=== PATIENT | female | born 1945 | race Caucasian/White ===

== ENCOUNTER 2020-10-02 13:56 | Inpatient (IN) | payer MEDICARE, BC ==
[~2020-10-02] VITALS: Ht 167.6 cm; Wt 56.2 kg
[~2020-10-02 13:56] MED LIST: CALCAVITD PO; CARB200 PO; CARBATROL PO; FURO40 PO; MAGCHL64ER; MULVITMIND PO; PHAZYME250 MG PO; POTCHL10ER PO; SODBIC650 PO
[2020-10-02 15:06] LABS: BASOPHILS ABSOLUTE AUTO 0.01 K/mm3 (0.00-0.23); BASOPHILS PERCENT AUTO 0 % (0-2); EOSINOPHILS PERCENT AUTO 0 % (0-6); Hematocrit 38.1 % (33.0-51.0); Hemoglobin 11.4 g/dL (11.5-16.0); IMMATURE GRAN ABSOLUTE AUTO 0.06 K/mm3 (0.00-0.10); IMMATURE GRAN PERCENT AUTO 1 % (0-1); LYMPHOCYTES ABSOLUTE AUTO 0.48 K/mm3 (0.84-5.20); LYMPHOCYTES PERCENT AUTO 6 % (21-46); MONOCYTES ABSOLUTE AUTO 0.59 K/mm3 (0.16-1.47); MONOCYTES PERCENT AUTO 8 % (4-13); Mean Corpuscular HGB 24.8 pg (26.0-34.0); Mean Corpuscular HGB Conc 29.9 g/dL (31.5-36.5); Mean Corpuscular Volume 83 fL (80-100); Mean Platelet Volume 9.6 fL (9.1-12.4); NEUTROPHILS ABSOLUTE AUTO 6.65 K/mm3 (1.96-9.15); NEUTROPHILS PERCENT AUTO 85 % (41-73); Platelet Count 310 K/mm3 (150-400); RDW Coefficient Variation 16.3 % (11.7-14.2); RDW Standard Deviation 47.3 fL (35.1-46.3); White Blood Cell Count 7.79 K/mm3 (4.00-11.30)
[2020-10-02 15:41] LABS: Albumin, Blood 2.7 g/dL (3.4-5.0); Albumin/Globulin Ratio 0.9 (0.8-1.8); Bilirubin, Total 0.3 mg/dL (0.1-1.0); Bun/Creatinine Ratio 14.2 (12.0-20.0); Calcium, Blood 5.6 mg/dL (8.5-10.1); Creatinine, Blood 3.39 mg/dL (0.40-1.00); Globulin, Blood 3.1 g/dL (2.2-4.0); Phosphorus, Blood 3.2 mg/dL (2.5-4.9); Total Protein, Blood 5.8 g/dL (6.4-8.2)
[2020-10-02 16:59] LABS: Source, Urine Clean Catch
[2020-10-02 17:08] LABS: Bilirubin, Urine Neg (Neg); Blood, Urine Neg (Neg); Glucose Qualitative, Urine 2+ (Neg); Ketones, Urine Neg (Neg); Leukocyte Esterase, Urine 1+ (Neg); Nitrite, Urine Neg (Neg); Protein, Urine 2+ (Neg); Urobilinogen, Urine NORM (Normal)
[2020-10-02 17:18] LABS: Appearance, Urine Clear (Clear); Color, Urine Yellow (P-Yellow)
[2020-10-02 17:19] LABS: Amorphous Light (0-Heavy); Bacteria Mod /hpf; Red Blood Cells, Urine 0-2 /hpf (0-2); Squamous Epithelial Cells Mod /hpf (Few)
[2020-10-02 17:20] LABS: Renal Epithelial Rare /hpf (0-Rare); Transitional Epithelial Cells Rare /hpf (0-Rare)
[2020-10-02] MEDS ORDERED: ALLO100 PO (18:09)
[2020-10-02] MEDS ORDERED: CARB200 PO (18:13)
[2020-10-02] MEDS ORDERED: EVEROLIMUS PO (21:49)
--- NOTE | 2020-10-03 03:46 | NUR ---
SUMMARY PT ARRIVED TO FLOOR IN NO DISTRESS. PT HAS BEEN NPO SINCE 0000 DUE TO POSSIBLE PROCEDURE IN AM. PT INFORMED TO HAVE BRING MED LIST AND TRANSPLANT MEDS TO [facility]. MED REC IS CURRENTLY INCOMPLETE. PT CURRENTLY SLEEPING IN NO DISTRESS. CALL LIGHT IN REACH.
[2020-10-03 05:25] LABS: Hematocrit 34.9 % (33.0-51.0); Hemoglobin 10.3 g/dL (11.5-16.0)
[2020-10-03 05:58] LABS: Magnesium, Blood 2.1 mg/dL (1.6-2.4)
[2020-10-03 06:11] LABS: Albumin, Blood 2.4 g/dL (3.4-5.0); Anion Gap 7 mmol/L (6-16); Blood Urea Nitrogen 48 mg/dL (8-24); Bun/Creatinine Ratio 13.8 (12.0-20.0); CO2, Blood 25 mmol/L (21-32); Calcium, Blood 5.9 mg/dL (8.5-10.1); Chloride, Blood 115 mmol/L (98-108); Creatinine, Blood 3.47 mg/dL (0.40-1.00); Glomerular Filtration Rate 14 (60-); Glucose, Blood 79 mg/dL (70-99); Phosphorus, Blood 3.3 mg/dL (2.5-4.9); Potassium, Blood 3.6 mmol/L (3.5-5.5); Sodium, Blood 147 mmol/L (136-145)
--- NOTE | 2020-10-03 09:13 | NUR ---
10/03/20 0913 Donte Pinto NO ANTIBIOTICS SCHEDULED. 2ND BAG OF 2000 MG CALCIUM GLUCONATE STARTED AT 0855 ON PUMP INFUSING INTO RIGHT HAND 22 G IV
[2020-10-03] MEDS ORDERED: VITAMIN D32000 UNI1 PO (12:11)
[2020-10-03] MEDS ORDERED: CALCITRATE200 M1 PO (12:11)
[2020-10-03] MEDS ORDERED: FURO40 PO (12:12)
[2020-10-03] MEDS ORDERED: CARBATROL (12:14)
[2020-10-03] MEDS ORDERED: PRED5 PO (12:15)
[2020-10-03] MEDS ORDERED: Diflucan100 MG PO (12:15)
[2020-10-03] MEDS ORDERED: ASPI81CH PO (12:16)
[2020-10-03] MEDS ORDERED: FAMO20 PO (12:16)
[2020-10-03] MEDS ORDERED: ZORTRESS0.5 MG PO (12:17)
[2020-10-03] MEDS ORDERED: POTCHL20ER PO (12:19)
[2020-10-03] MEDS ORDERED: Vitamin B Comple1 EA PO (12:19)
[2020-10-03] MEDS ORDERED: ROPI.25 PO (12:20)
--- NOTE | 2020-10-03 12:29 | NUR ---
PATIENT RECIEVED HD PERMACATH THIS MORNING. VSS. NO COMPLAINTS. SPOKE WITH CARLO WHO STATES AT THIS TIME HE IS NOT SURE IF PT WILL REICEVE HD TODAY. THIS RN REQUESTED RECHECK OF CA LEVELS, NO NEW ORDERS RECIEVED. STATES, AM RECHECK IS OK. THIS RN NOTIFIED OF UPDATED MED LIST. PT MAY RESUME PREDNISONE AND EVEROLIMUS, PREVIOUSLY TAKEN, PER CARLO.
--- NOTE | 2020-10-04 04:31 | NUR ---
VICE PRESIDENT EDUCATION SUMMARY PT A&OX4, ABLE TO MAKE NEEDS KNOWN. PLEASANT AND COOPERATIVE TO CARE. NO C/O PAIN OR ANY DISCOMFORT THIS SHIFT. CALM AND RESTED T/O SHIFT. DRESSING TO PERMACATH ON R UPPER CHEST AREA CDI. VSS. BED AT LOWEST POSITION. CALL LIGHT WITHIN REACH.
[2020-10-04 05:56] LABS: Hematocrit 34.3 % (33.0-51.0); Hemoglobin 10.2 g/dL (11.5-16.0)
[2020-10-04 06:18] LABS: Albumin, Blood 2.3 g/dL (3.4-5.0); Anion Gap 5 mmol/L (6-16); Blood Urea Nitrogen 31 mg/dL (8-24); Bun/Creatinine Ratio 11.7 (12.0-20.0); CO2, Blood 31 mmol/L (21-32); Calcium, Blood 7.7 mg/dL (8.5-10.1); Chloride, Blood 107 mmol/L (98-108); Creatinine, Blood 2.65 mg/dL (0.40-1.00); Glomerular Filtration Rate 19 (60-); Glucose, Blood 118 mg/dL (70-99); Phosphorus, Blood 2.9 mg/dL (2.5-4.9); Potassium, Blood 3.8 mmol/L (3.5-5.5); Sodium, Blood 143 mmol/L (136-145)
[2020-10-04 06:53] LABS: BASOPHILS ABSOLUTE AUTO 0.01 K/mm3 (0.00-0.23); BASOPHILS PERCENT AUTO 0 % (0-2); EOSINOPHILS ABSOLUTE AUTO 0.01 K/mm3 (0.00-0.68); EOSINOPHILS PERCENT AUTO 0 % (0-6); Hematocrit 34.1 % (33.0-51.0); IMMATURE GRAN ABSOLUTE AUTO 0.05 K/mm3 (0.00-0.10); IMMATURE GRAN PERCENT AUTO 1 % (0-1); LYMPHOCYTES PERCENT AUTO 13 % (21-46); MONOCYTES ABSOLUTE AUTO 1.06 K/mm3 (0.16-1.47); MONOCYTES PERCENT AUTO 13 % (4-13); Mean Corpuscular HGB 24.6 pg (26.0-34.0); Mean Corpuscular HGB Conc 29.3 g/dL (31.5-36.5); Mean Corpuscular Volume 84 fL (80-100); Mean Platelet Volume 9.8 fL (9.1-12.4); NEUTROPHILS ABSOLUTE AUTO 5.89 K/mm3 (1.96-9.15); NEUTROPHILS PERCENT AUTO 74 % (41-73); Platelet Count 258 K/mm3 (150-400); RDW Coefficient Variation 16.8 % (11.7-14.2); RDW Standard Deviation 49.9 fL (35.1-46.3); Red Blood Cell Count 4.06 M/mm3 (3.80-5.20); White Blood Cell Count 8.02 K/mm3 (4.00-11.30)
[2020-10-04 07:05] LABS: Bun/Creatinine Ratio 12.4 (12.0-20.0); Calcium, Blood 7.8 mg/dL (8.5-10.1); Creatinine, Blood 2.59 mg/dL (0.40-1.00); Potassium, Blood 3.8 mmol/L (3.5-5.5)
--- NOTE | 2020-10-05 03:54 | NUR ---
GEOPHYSICAL MANAGER SUMMARY PT A&OX4, ABLE TO MAKE NEEDS KNOWN. PLEASANT AND COOPERATIVE TO CARE. INDEPENDENT IN ROOM. NO C/O PAIN OR ANY DISCOMFORT THIS SHIFT. NO C/O CP, SOB, OR N/V. PT CALM AND RESTED IN BED T/O SHIFT. PERMACATH DRESSING TO R UPPER CHEST AREA CDI. PT SCHEDULED TO HAVE DIALYSIS TODAY. BED AT LOWEST POSITION. CALL LIGHT WITHIN REACH. POSSIBLE D/C TO HOME TODAY.
[2020-10-05 06:00] LABS: Hematocrit 35.4 % (33.0-51.0); Hemoglobin 10.3 g/dL (11.5-16.0)
[2020-10-05 06:29] LABS: Albumin, Blood 2.2 g/dL (3.4-5.0); Anion Gap 6 mmol/L (6-16); Blood Urea Nitrogen 33 mg/dL (8-24); Bun/Creatinine Ratio 11.5 (12.0-20.0); CO2, Blood 28 mmol/L (21-32); Calcium, Blood 8.8 mg/dL (8.5-10.1); Chloride, Blood 109 mmol/L (98-108); Creatinine, Blood 2.87 mg/dL (0.40-1.00); Glomerular Filtration Rate 17 (60-); Glucose, Blood 108 mg/dL (70-99); Magnesium, Blood 2.1 mg/dL (1.6-2.4); Potassium, Blood 3.9 mmol/L (3.5-5.5); Sodium, Blood 143 mmol/L (136-145)
[2020-10-05 08:10] LABS: HBSAG SCREEN Negative (Negative)
--- NOTE | 2020-10-05 11:08 | NUR ---
AM ASSESSMENT I AGREE WITH SN NGO'S AND WAS PRESENT DURING HER AM ASSESSMENT
[2020-10-05] MEDS ORDERED: BUME2 PO (11:28)
[2020-10-05 17:09] LABS: Influenza A, PCR Negative (NEGATIVE); Influenza B, PCR Negative (NEGATIVE); Resp Syncytial Virus, PCR Negative (NEGATIVE); SARS-Cov-2 (COVID-19) PCR, MMC Negative (NEGATIVE)
--- NOTE | 2020-10-05 17:19 | NUR ---
SHIFT SUMMARRY A&OX4, INDEPENDENT IN ROOM. PLEASANT & COOPERATIVE WITH CARE, ABLE TO MAKE NEEDS KNOWN. DENIES SOB, N/V, PAIN. PERMACATH DRESSING TO RIGHT UPPER CHEST AREA C/D/I. COVID TEST PERFORMED, RESULTS NEGATIVE. DISCHARGE WITHHELD DUE TO COMPLICATIONS WITH [facility]. PT IS TO RECIEVE DIALYSIS TOMORROW, WITH POSSIBLE DISCHARGE AFTERWARDS. NO OTHER CHANGES OR CONCERNS.
--- NOTE | 2020-10-06 04:20 | NUR ---
FINANCE INSURANCE MANAGER SUMMARY PT A&OX4, ABLE TO MAKE NEEDS KNOWN, PLEASANT AND COOPERATIVE TO CARE. NO C/O PAIN OR ANY DISCOMFORT THIS SHIFT. NO C/O CP, SOB, OR N/V. PT IS INDEPENDENT IN ROOM. DRESSING TO PERMACATH ON R UPPER CHEST AREA IS C/D/I. PT CALM AND RESTED IN BED T/O SHIFT. CALL LIGHT WITHIN REACH. SCHEDULED FOR DIALYSIS TODAY. POSSIBLE DISCHARGE TO HOME.
[2020-10-06 05:32] LABS: Hematocrit 36.4 % (33.0-51.0); Hemoglobin 10.7 g/dL (11.5-16.0)
[2020-10-06 05:54] LABS: Albumin, Blood 2.3 g/dL (3.4-5.0); Anion Gap 5 mmol/L (6-16); Blood Urea Nitrogen 41 mg/dL (8-24); Bun/Creatinine Ratio 12.1 (12.0-20.0); CO2, Blood 29 mmol/L (21-32); Calcium, Blood 9.7 mg/dL (8.5-10.1); Chloride, Blood 109 mmol/L (98-108); Creatinine, Blood 3.38 mg/dL (0.40-1.00); Glomerular Filtration Rate 14 (60-); Glucose, Blood 90 mg/dL (70-99); Magnesium, Blood 2.1 mg/dL (1.6-2.4); Phosphorus, Blood 3.3 mg/dL (2.5-4.9); Potassium, Blood 4.2 mmol/L (3.5-5.5); Sodium, Blood 143 mmol/L (136-145)
[2020-10-06 07:10] LABS: HBSAG SCREEN Negative (Negative); HEP A AB, IGM Negative (Negative); HEP B CORE AB, IGM Negative (Negative); HEP C VIRUS AB <0.1 (0.0-0.9)
--- NOTE | 2020-10-06 09:41 | NUR ---
PT TAKEN TO DIALYSIS A/OX3 APPEARED TO BE BREATHING EASILY, PT TRANSFERED VIA WHEELCHAIR
--- NOTE | 2020-10-06 13:29 | NUR ---
Pt. is sitting in a chair resting and the spouce in the room on visit ,pt. reports doing well prayed for the pt.
--- NOTE | 2020-10-06 17:36 | NUR ---
PT IS A/OX3, PLEASANT AND COOPERATIVE, THE PT IS UP IND IN HER ROOM, THE PT APPEARS TO BE BREATHING EASILY ON RA, THE PT DENIES ANY PAIN, THE PT HAD DIALYSIS TODAY AND TOLERATED IT WELL, THE PT WAS EXPECTING TO BE DISCHARGED TODAY, APPARENTLY PER THE COAL PASSER WE ARE STILL WAITING FOR CONFORMATION FROM [facility] IN ORDER FOR THE PATIENT TO BE DISCHARGED AND ASSURED A SPOT FOR DIALSIS TO BE DONE, THE PT AND HER ARE COOPERATIVE HOWEVER UNHAPPY WITH THE DELAYED DISCHARGE, CALL LIGHT IN REACH, WILL CONTINUE TO MONITOR FOR CHANGES
[2020-10-07 04:49] LABS: Hematocrit 33.6 % (33.0-51.0); Hemoglobin 9.8 g/dL (11.5-16.0)
[2020-10-07 05:11] LABS: Albumin, Blood 2.1 g/dL (3.4-5.0); Anion Gap 6 mmol/L (6-16); Blood Urea Nitrogen 40 mg/dL (8-24); Bun/Creatinine Ratio 13.3 (12.0-20.0); CO2, Blood 29 mmol/L (21-32); Calcium, Blood 9.6 mg/dL (8.5-10.1); Chloride, Blood 107 mmol/L (98-108); Creatinine, Blood 3.01 mg/dL (0.40-1.00); Glomerular Filtration Rate 16 (60-); Glucose, Blood 89 mg/dL (70-99); Phosphorus, Blood 3.3 mg/dL (2.5-4.9); Potassium, Blood 4.1 mmol/L (3.5-5.5); Sodium, Blood 142 mmol/L (136-145)
--- NOTE | 2020-10-07 07:16 | NUR ---
SHIFT SUMMARY PT IS A 75 Y/O FEMALE, ADMITTED FOR HYPOCALCEMIA WHICH HAS SINCE BEEN RESOLVED. PT IS A NEW DIALYSIS PT, WITH A PERMACATH PLACED IN THE R CHEST WALL. NO C/O PAIN, NAUSEA OR SOB. VITAL SIGNS STABLE. NO ACUTE CHANGES IN PT CONDITION NOTED DURING THE NIGHT. REPORT GIVEN TO ONCOMING RN.
--- NOTE | 2020-10-07 11:23 | NUR ---
PT DISCHARGED TO HOME. PG REMOVED, NO SS OF INFECTION NOTED. PT DRESSED SELF. SKIN TEAR WAS REDRESSED PRIOR TO DC. NURSE EDUCATED PT ON NEW MEDS AND DISCHARGE INSTRUCTIONS. PT ENCOURAGED TO FOLLOW UP WITH PCP. PT WC DOWN TO CAR AND TAKEN HOME BY .
--- NOTE | 2020-10-07 12:24 | NUR ---
Pt. is doing much better and is discharged for good wished pt. all the best at home.
== END 2020-10-07 11:25 | disposition home or self-care (01) | DRG 674 ==
LOC: ER 13:56 → MEDS 13:57 → ER 10-03 08:00 → MEDS 10-04 12:46 → ENPENDDIS 10-05 09:51 → MEDS 10-07 11:25
PROVIDERS: Internal Medicine; Internal Medicine Nephrology; Physician Assistant; Surgery; ADMIT Hospitalist
PROC: 0JH63XZ Insertion of Tunneled Vascular Access Device into Chest Subcutaneous Tissue and Fascia, Percutaneous Approach (ICD-10-PCS; 2020-10-03)
PROC: 02HV33Z Insertion of Infusion Device into Superior Vena Cava, Percutaneous Approach (ICD-10-PCS; 2020-10-03)
PROC: 5A1D70Z Performance of Urinary Filtration, Intermittent, Less than 6 Hours Per Day (ICD-10-PCS; principal; 2020-10-03 08:00)
PROC: 5A1D70Z Performance of Urinary Filtration, Intermittent, Less than 6 Hours Per Day (ICD-10-PCS; 2020-10-06)
DX: N17.9 Acute kidney failure, unspecified (principal); Z94.0 Kidney transplant status; E83.51 Hypocalcemia; N18.6 End stage renal disease; N25.81 Secondary hyperparathyroidism of renal origin; D63.1 Anemia in chronic kidney disease; R73.9 Hyperglycemia, unspecified; E88.09 Other disorders of plasma-protein metabolism, not elsewhere classified; Z98.84 Bariatric surgery status; Z20.828 Contact with and (suspected) exposure to other viral communicable diseases; Z99.2 Dependence on renal dialysis
CPT/HCPCS: 0241U; 36415; 71045; 77001; 80048; 80053; 80069; 80074; 81001; 83036; 83735; 84100; 85014; 85018; 85025; 86317; 87340; 93005; 93010; 96365; 99284-25; A9270; A9270-GY; C1750; C1751; J0610; J1100; J1644; J2370; J2405; J2704; J3010; J7512; U0004

== ENCOUNTER → 2020-12-11 | Outpatient (CLI) | payer MEDICARE, BC ==
[~2020-12-11] MED LIST changes: +ALLO100 PO; +ASPIR 8181 M1 PO; +B-12500 MC2 PO; +BUME2 PO; +CALCITRATE200 M1 PO; +CALCITRIOL0.5 MC1 PO; +Diflucan100 MG PO; +EVEROLIMUS0.25 MG PO; +FAMO20 PO; +K-Dur20 MEQ PO; +LOPE2C PO; -MAGCHL64ER; +MAGCHL64ER PO; +PANT40 PO; +POTA10T PO; +POTCHL20ER PO; +PRED5 PO; +ROPI.25 PO; +VITAMIN D32000 UNI1 PO; +Vitamin B Comple1 EA PO; +XARELTO15 MG PO; +ZORTRESS0.5 MG PO
== END | disposition home or self-care (01) ==
LOC: LAB 11:30 → LAB DAV 11:30
DX: R19.7 Diarrhea, unspecified (principal)
CPT/HCPCS: 87493

== ENCOUNTER 2020-12-19 08:01 | Inpatient (IN) | payer MEDICARE, BC ==
[~2020-12-19] VITALS: Ht 167.6 cm; Wt 59.2 kg
[~2020-12-19 08:01] MED LIST changes: -ASPIR 8181 M1 PO; -B-12500 MC2 PO; -CALCITRATE200 M1 PO; -CALCITRIOL0.5 MC1 PO; -Diflucan100 MG PO; -EVEROLIMUS0.25 MG PO; -FAMO20 PO; -K-Dur20 MEQ PO; -LOPE2C PO; -MAGCHL64ER PO; -PANT40 PO; -POTA10T PO; -POTCHL20ER PO; -PRED5 PO; -ROPI.25 PO; -SODBIC650 PO; -VITAMIN D32000 UNI1 PO; -Vitamin B Comple1 EA PO; -XARELTO15 MG PO
[2020-12-19 08:55] LABS: Chloride (POC) 100 mmol/L (98-108); Creatinine (POC) 2.1 mg/dL (0.6-1.0); Glucose (ISTAT POC) 80 mg/dL (70-99); Hemoglobin (POC) 11.2 g/dL (12.0-16.0); Potassium (POC) 2.7 mmol/L (3.5-5.5); Sodium (POC) 138 mmol/L (135-148); Total CO2 (POC) 26 mmol/L (21-32)
[2020-12-19 09:36] LABS: BASOPHILS ABSOLUTE AUTO 0.04 K/mm3 (0.00-0.23); BASOPHILS PERCENT AUTO 1 % (0-2); EOSINOPHILS ABSOLUTE AUTO 0.04 K/mm3 (0.00-0.68); EOSINOPHILS PERCENT AUTO 1 % (0-6); Hematocrit 32.6 % (33.0-51.0); Hemoglobin 9.8 g/dL (11.5-16.0); IMMATURE GRAN ABSOLUTE AUTO 0.05 K/mm3 (0.00-0.10); IMMATURE GRAN PERCENT AUTO 1 % (0-1); LYMPHOCYTES ABSOLUTE AUTO 0.25 K/mm3 (0.84-5.20); LYMPHOCYTES PERCENT AUTO 4 % (21-46); MONOCYTES ABSOLUTE AUTO 0.63 K/mm3 (0.16-1.47); MONOCYTES PERCENT AUTO 11 % (4-13); Mean Corpuscular HGB 26.4 pg (26.0-34.0); Mean Corpuscular HGB Conc 30.1 g/dL (31.5-36.5); Mean Corpuscular Volume 88 fL (80-100); Mean Platelet Volume 9.4 fL (9.1-12.4); NEUTROPHILS ABSOLUTE AUTO 4.77 K/mm3 (1.96-9.15); NEUTROPHILS PERCENT AUTO 83 % (41-73); Platelet Count 274 K/mm3 (150-400); RDW Standard Deviation 55.1 fL (35.1-46.3); Red Blood Cell Count 3.71 M/mm3 (3.80-5.20); White Blood Cell Count 5.78 K/mm3 (4.00-11.30)
[2020-12-19 10:01] LABS: Alanine Aminotransfer (ALT/SGP 17 U/L (12-78); Albumin, Blood 2.3 g/dL (3.4-5.0); Albumin/Globulin Ratio 0.9 (0.8-1.8); Alk Phos 63 U/L (50-136); Anion Gap 8 mmol/L (6-16); Aspartate Aminotrans (AST/SGOT 24 U/L (12-37); Bilirubin, Total 0.5 mg/dL (0.1-1.0); Blood Urea Nitrogen 29 mg/dL (8-24); Bun/Creatinine Ratio 15.9 (12.0-20.0); CO2, Blood 25 mmol/L (21-32); Calcium, Blood 6.5 mg/dL (8.5-10.1); Chloride, Blood 108 mmol/L (98-108); Creatinine, Blood 1.82 mg/dL (0.40-1.00); Globulin, Blood 2.6 g/dL (2.2-4.0); Glomerular Filtration Rate 29 (60-); Glucose, Blood 79 mg/dL (70-99); Potassium, Blood 2.9 mmol/L (3.5-5.5); Sodium, Blood 141 mmol/L (136-145); Total Protein, Blood 4.9 g/dL (6.4-8.2); Troponin I <0.015 ng/mL (0.000-0.040)
[2020-12-19] MEDS ORDERED: CALCITRIOL0.5 MC1 PO (12:50)
[2020-12-19] MEDS ORDERED: CARBATROL PO (12:50)
[2020-12-19] MEDS ORDERED: MAGCHL64ER PO (13:07)
[2020-12-19] MEDS ORDERED: ASPIR 8181 M1 PO (13:10)
[2020-12-19] MEDS ORDERED: SODBIC650 PO (13:10)
[2020-12-19] MEDS ORDERED: VITAMIN D32000 UNI1 PO (13:11)
[2020-12-19] MEDS ORDERED: PRED5 PO (13:11)
[2020-12-19] MEDS ORDERED: Vitamin B Comple1 EA PO (13:11)
[2020-12-19] MEDS ORDERED: Diflucan100 MG PO (13:12)
[2020-12-19] MEDS ORDERED: PANT40 PO (13:13)
[2020-12-19] MEDS ORDERED: POTCHL20ER PO (13:13)
[2020-12-19] MEDS ORDERED: BUME2 PO (13:14)
[2020-12-19] MEDS ORDERED: K-Dur20 MEQ PO (13:15)
[2020-12-19] MEDS ORDERED: B-12500 MC2 PO (13:16)
[2020-12-19] MEDS ORDERED: FAMO20 PO (13:33)
[2020-12-19] MEDS ORDERED: CALCITRATE200 M1 PO (13:33)
[2020-12-19] MEDS ORDERED: ROPI.25 PO (13:34)
[2020-12-19] MEDS ORDERED: EVEROLIMUS0.25 MG PO (13:35)
--- NOTE | 2020-12-19 15:27 | NUR ---
pt arrived to pcu 16 via gurney from ED. report obtained, pt is able to stand and transfer to the bed, she came in from dialysis after feeling faint and her heart racing, she was in afib rvr and converted to sr after amiodorone was infused, she is a/ox3, pleasant and cooperative with care, follows commands well denies pain at this time, lungs are clear t/o, resp even and unlabored, no cough noted, hrr, tele in place running sr per monitor, see strip, trace edema noted to b/l le, but pt has oswaldo hose in place, ppp+1, cap refill <3sec, vs stable, afebrile, iv sites are clear and patent, btx4, hyperactive, pt reports diarrhea x2 months, voids without diff, skin frail but intact, tracey baron, call light in reach.
[2020-12-19 17:31] LABS: Bun/Creatinine Ratio 14.6 (12.0-20.0); Creatinine, Blood 2.06 mg/dL (0.40-1.00); Potassium, Blood 3.5 mmol/L (3.5-5.5)
--- NOTE | 2020-12-19 18:32 | NUR ---
Dr. Romo in to see pt, new orders recieved, placing new iv as one to left thumb is very sore, this will be removed, and new one placed. no further changes this shift. call light in reach.
[2020-12-20 04:02] LABS: BASOPHILS ABSOLUTE AUTO 0.06 K/mm3 (0.00-0.23); BASOPHILS PERCENT AUTO 1 % (0-2); EOSINOPHILS PERCENT AUTO 2 % (0-6); Hematocrit 30.4 % (33.0-51.0); Hemoglobin 9.3 g/dL (11.5-16.0); IMMATURE GRAN ABSOLUTE AUTO 0.03 K/mm3 (0.00-0.10); IMMATURE GRAN PERCENT AUTO 1 % (0-1); LYMPHOCYTES ABSOLUTE AUTO 1.51 K/mm3 (0.84-5.20); LYMPHOCYTES PERCENT AUTO 27 % (21-46); MONOCYTES ABSOLUTE AUTO 0.83 K/mm3 (0.16-1.47); MONOCYTES PERCENT AUTO 15 % (4-13); Mean Corpuscular HGB Conc 30.6 g/dL (31.5-36.5); Mean Corpuscular Volume 88 fL (80-100); Mean Platelet Volume 9.3 fL (9.1-12.4); NEUTROPHILS ABSOLUTE AUTO 3.12 K/mm3 (1.96-9.15); NEUTROPHILS PERCENT AUTO 55 % (41-73); Platelet Count 340 K/mm3 (150-400); RDW Standard Deviation 54.9 fL (35.1-46.3); Red Blood Cell Count 3.45 M/mm3 (3.80-5.20); White Blood Cell Count 5.65 K/mm3 (4.00-11.30)
[2020-12-20 04:22] LABS: Albumin, Blood 2.1 g/dL (3.4-5.0); Albumin/Globulin Ratio 0.8 (0.8-1.8); Bilirubin, Total 0.4 mg/dL (0.1-1.0); Bun/Creatinine Ratio 13.4 (12.0-20.0); Calcium, Blood 6.1 mg/dL (8.5-10.1); Creatinine, Blood 2.39 mg/dL (0.40-1.00); Globulin, Blood 2.6 g/dL (2.2-4.0); Total Protein, Blood 4.7 g/dL (6.4-8.2)
--- NOTE | 2020-12-20 05:50 | NUR ---
SHIFT SUMMARY PT A&OX4. PLEASANT AND COOPERATIVE. SP02>92% ON RA. TELEMETRY READS SR, HR 80'S-90'S. PT UP TO BATHROOM WITH MINIMAL ASSISTANCE TO VOID THIS SHIFT. PT DENIES PAIN. PT TALKED ON PHONE FOR ABOUT AN HOUR AT BEGINNING OF SHIFT, WATCHED TV, THEN SLEPT THE SECOND HALF OF SHIFT. CALL LIGHTIN REACH. WILL GIVE REPORT TO ONCOMING SHIFT.
[2020-12-20 09:03] LABS: Magnesium, Blood 1.8 mg/dL (1.6-2.4); Phosphorus, Blood 3.6 mg/dL (2.5-4.9); Thyroid Stimulating Hormone 1.14 uIU/mL (0.360-4.800)
[2020-12-20] MEDS ORDERED: LOPE2C PO (15:07)
[2020-12-20] MEDS ORDERED: XARELTO15 MG PO (15:08)
--- NOTE | 2020-12-20 15:45 | NUR ---
PT WENT TO RESTROOM BUT DID NOT HAVE BM OR STRAINING AND NOTED RECTAL BLEEDING, BRICE RED BLOOD. CALL TO DR RUGGIERO WHO INSTRUCTED FOR PT TO STOP XARELTO AND TO FOLLOW UP WITH DR MATOS. SHE ALSO SPOKE WITH DR MATOS WHOW AWARE FOR FOLLOW UP
--- NOTE | 2020-12-20 16:17 | NUR ---
PT GOT UP TO RESTROOM AND CALLED RNS TO ROOM DUE TO HEAVY BLEEDING WITH BM. LARGE AMOUNT OF BLOOD AND CLOTS NOTED IN TOILET BOWL. PT ALSO STATED SHE WAS DIZZY WITH ACTIVITY AND STANDING. RN CHECKED VITAL SIGNS AND NOTED PT HAD PSOITIVE ORTHOS. DR RUGGIERO ORDERS TO STOP XARELTO AND STOP DC AND GET GI CONSULT AND STAT H AND H
[2020-12-20 16:45] LABS: Hematocrit 28.1 % (33.0-51.0); Hemoglobin 8.6 g/dL (11.5-16.0)
--- NOTE | 2020-12-20 19:24 | NUR ---
SHIFT SUMMARY: PT IS ALERT AND ORIENTED X4. ON ROOM AIR SATING ABOVE 92%. TELE SHOWING SINUS RHYTH, WITH HR IN 80'S. DENIES CHEST PAIN/PRESSURE. DIALYSIS PORT DRESSING CLEAN DRY AND INTACT, DENIES PAIN. SKIN FRAGILE WITH SKIN TEAR NOTED ON LEFT FOREARM, GAUZE AND COBAN. MODERATE EDEMA NOTED IN BILATERAL ANKLES/LOWER EXTREMITIES. PT STATES THAT IS "NORMAL FOR HER". SEE PREVIOUS TWO NOTES ABOUT RECTAL BLEEDING AND HYPOTENSION WHEN STANDING. DR. KHANNA IN TO SEE PATIENT WITH PLANS FOR UPPER AND LOWER COLONOSCOPY. BOWEL PREP DISCUSSED WITH DR. KHANNA AND PATIENT. INTO SEE PATIENT THIS AFTERNOON AND EVENING, ABLE TO BRING IN HOME MEDS, VERIFIED BY PHARMACY AND PLACED IN PATIENT LOCKED DRAWER. PT DENIES PAIN/DIZZINESS. EATING WELL AND VITAL SIGNS STABLE. CALLING APPROPRIATLY. BED REMAINED IN LOW LOCKED POSITION. PT EDUCATED ABOUT CALLING TO USE BATHROOM FROM PREVIOUS RECTAL BLEEDING AND HYPOTENSION.
[2020-12-21 00:40] LABS: Hematocrit 27.1 % (33.0-51.0); Hemoglobin 8.2 g/dL (11.5-16.0)
--- NOTE | 2020-12-21 02:00 | NUR ---
PT UPDATE PT C/O OF GOLYTLY DRINK, STATES IT MAKES HER NAUSEATED AND SHE FEELS IT IS GOING TO "COME BACK UP." GAVE PT APPLE JUICE, ETC TO DRINK AFTER TAKING A DRINK TO HELP WITH TASTE. MEDICATED W/ ZOFRAN PER EMAR. PT DRANK APPROX 1/3 OF JUG. PT STATES SHE IS DONE, IT IS MAKING HER NAUSEATED. PT STATES "I KNOW MY BODY AND I KNOW ITS GOING TO COME BACK UP." PT STATES SHE WANTS TO RESCHEDULE HER SCOPE SO SHE CAN PREP WITH MIROLAX. PT STATES SHE HAS PREPPED W/ MIROLAX FOR A PRIOR PROCEDURE WITH NO ISSUES.
[2020-12-21 02:51] LABS: Influenza A, PCR Negative (NEGATIVE); Influenza B, PCR Negative (NEGATIVE); Resp Syncytial Virus, PCR Negative (NEGATIVE); SARS-Cov-2 (COVID-19) PCR, MMC Negative (NEGATIVE)
[2020-12-21 04:45] LABS: Hematocrit 26.6 % (33.0-51.0); Hemoglobin 8.1 g/dL (11.5-16.0)
[2020-12-21 05:07] LABS: Anion Gap 9 mmol/L (6-16); Blood Urea Nitrogen 40 mg/dL (8-24); CO2, Blood 24 mmol/L (21-32); Calcium, Blood 6.2 mg/dL (8.5-10.1); Chloride, Blood 111 mmol/L (98-108); Glomerular Filtration Rate 20 (60-); Glucose, Blood 93 mg/dL (70-99); Magnesium, Blood 1.9 mg/dL (1.6-2.4); Phosphorus, Blood 2.6 mg/dL (2.5-4.9); Potassium, Blood 3.9 mmol/L (3.5-5.5); Sodium, Blood 144 mmol/L (136-145)
--- NOTE | 2020-12-21 05:58 | NUR ---
SHIFT SUMMARY PT A&0X4. SPO2>92% ON RA. TELEMETRY READS SR, HR 80'S-90'S. PT DENIED PAIN. PT STARTED BOWEL PREP FOR SCOPE IN AM WITHOUT SUCCESS, SEE PREVIOUS NOTE. PT UP TO BATHROOM MULTIPLE TIMES, PRODUCING MAROON LIQUID STOOL. IV INFILTRATED THIS SHIFT, NEW IV PLACED IN R HAND. PT SLEPT T/O SECOND HALF OF SHIFT. CALL LIGHT IN REACH. WILL GIVE REPORT TO ONCOMING NURSE.
--- NOTE | 2020-12-21 06:45 | NUR ---
PT UPDATE DR MATOS IN ROOM TO SEE PT. MD MATOS WITH ORDERS FOR STAT IONIZED CALCIUM LAB AND TO BE NOTIFIED WHEN RESULTS ARE IN. DR JOHNSON NOW IN SEEING PT.
--- NOTE | 2020-12-21 11:58 | NUR ---
UPDATE PT TAKEN TO DAY SURGERY FOR PROCEDURE. WILL AWAIT RETURN.
--- NOTE | 2020-12-21 13:07 | NUR ---
12/21/20 1307 Beatriz Torres MONITOR INTACT WITH CONTINUOUS PULSE OXIMETRY AND INTERMITTENT BP.
--- NOTE | 2020-12-21 14:06 | NUR ---
UPDATE PT RETURNED FROM PROCEDURE. VS STABLE. PT DENIES ANY PAIN, NAUSEA, OR VOMITTING. PT TO HAVE DIALYSIS IN THE ROOM.
[2020-12-21 17:36] LABS: Hematocrit 27.6 % (33.0-51.0); Hemoglobin 8.8 g/dL (11.5-16.0)
--- NOTE | 2020-12-21 18:47 | NUR ---
DISCHARGE DISCHARGE INSTRUCTIONS PROVIDED TO PT. PT EDUCATED ON NEW MEDICATIONS AND MEDICATION CHANGES. ALL QUESTIONS ANSWERED. PT TAKEN OUT BY JASON.
[2020-12-22 20:08] LABS: T-TRANSGLUTAMINASE (TTG) IGA <2 U/mL (0-3); T-TRANSGLUTAMINASE (TTG) IGG <2 U/mL (0-5)
== END 2020-12-21 18:44 | disposition home or self-care (01) | DRG 308 ==
LOC: ER 08:01 → PCU 10:06
PROVIDERS: Internal Medicine; Internal Medicine Gastroenterology; Internal Medicine Nephrology; Physician Assistant; ADMIT Internal Medicine
PROC: 5A2204Z Restoration of Cardiac Rhythm, Single (ICD-10-PCS; principal; 2020-12-19)
PROC: 0DBB8ZX Excision of Ileum, Via Natural or Artificial Opening Endoscopic, Diagnostic (ICD-10-PCS; 2020-12-21)
PROC: 0DB68ZX Excision of Stomach, Via Natural or Artificial Opening Endoscopic, Diagnostic (ICD-10-PCS; 2020-12-21 12:30)
DX: I48.91 Unspecified atrial fibrillation (principal); N18.6 End stage renal disease; N25.81 Secondary hyperparathyroidism of renal origin; I82.401 Acute embolism and thrombosis of unspecified deep veins of right lower extremity; T86.19 Other complication of kidney transplant; K92.2 Gastrointestinal hemorrhage, unspecified; K63.3 Ulcer of intestine; E87.8 Other disorders of electrolyte and fluid balance, not elsewhere classified; Z79.82 Long term (current) use of aspirin; Z99.2 Dependence on renal dialysis; Z86.718 Personal history of other venous thrombosis and embolism; G25.81 Restless legs syndrome; Z98.0 Intestinal bypass and anastomosis status; E87.6 Hypokalemia; R19.7 Diarrhea, unspecified; E83.42 Hypomagnesemia; E83.51 Hypocalcemia; E83.39 Other disorders of phosphorus metabolism; G50.9 Disorder of trigeminal nerve, unspecified; M10.9 Gout, unspecified; T45.515A Adverse effect of anticoagulants, initial encounter; Y92.230 Patient room in hospital as the place of occurrence of the external cause; Z90.49 Acquired absence of other specified parts of digestive tract; I95.89 Other hypotension
CPT/HCPCS: 0241U; 36415; 71045; 80047; 80048; 80053; 80069; 82306; 82330; 83516; 83735; 83970; 84100; 84443; 84484; 85014; 85018; 85025; 88305; 88342; 92960; 93005; 93010; 93306; 96361-59; 96365-59; 96366-59; 96367-59; 99152; 99285-25; A9270; J0282; J0610; J0881; J2405; J2704; J3475; J3480; J7030; J7060; J7512

== ENCOUNTER 2020-12-28 15:59 | Emergency (ER) | payer MEDICARE, BC ==
[~2020-12-28] VITALS: Ht 167.6 cm; Wt 60.8 kg
[~2020-12-28 15:59] MED LIST changes: +ASPIR 8181 M1 PO; +B-12500 MC2 PO; +CALCITRATE200 M1 PO; +CALCITRIOL0.5 MC1 PO; +Diflucan100 MG PO; +EVEROLIMUS0.25 MG PO; +FAMO20 PO; +K-Dur20 MEQ PO; +LOPE2C PO; +MAGCHL64ER PO; +PANT40 PO; +POTCHL20ER PO; +PRED5 PO; +ROPI.25 PO; +SODBIC650 PO; +VITAMIN D32000 UNI1 PO; +Vitamin B Comple1 EA PO; +XARELTO15 MG PO
[2020-12-28 18:51] LABS: BASOPHILS ABSOLUTE AUTO 0.04 K/mm3 (0.00-0.23); BASOPHILS PERCENT AUTO 1 % (0-2); EOSINOPHILS PERCENT AUTO 0 % (0-6); Hematocrit 27.7 % (33.0-51.0); Hemoglobin 8.7 g/dL (11.5-16.0); IMMATURE GRAN ABSOLUTE AUTO 0.05 K/mm3 (0.00-0.10); IMMATURE GRAN PERCENT AUTO 1 % (0-1); LYMPHOCYTES ABSOLUTE AUTO 0.78 K/mm3 (0.84-5.20); LYMPHOCYTES PERCENT AUTO 10 % (21-46); MONOCYTES ABSOLUTE AUTO 0.88 K/mm3 (0.16-1.47); MONOCYTES PERCENT AUTO 12 % (4-13); Mean Corpuscular HGB Conc 31.4 g/dL (31.5-36.5); Mean Corpuscular Volume 89 fL (80-100); Mean Platelet Volume 9.3 fL (9.1-12.4); NEUTROPHILS ABSOLUTE AUTO 5.86 K/mm3 (1.96-9.15); NEUTROPHILS PERCENT AUTO 77 % (41-73); Platelet Count 351 K/mm3 (150-400); RDW Coefficient Variation 15.5 % (11.7-14.2); RDW Standard Deviation 49.5 fL (35.1-46.3); Red Blood Cell Count 3.11 M/mm3 (3.80-5.20); White Blood Cell Count 7.61 K/mm3 (4.00-11.30)
[2020-12-28 19:05] LABS: Albumin, Blood 2.4 g/dL (3.4-5.0); Albumin/Globulin Ratio 0.9 (0.8-1.8); Bilirubin, Total 0.4 mg/dL (0.1-1.0); Bun/Creatinine Ratio 12.9 (12.0-20.0); Calcium, Blood 6.9 mg/dL (8.5-10.1); Creatinine, Blood 2.25 mg/dL (0.40-1.00); Globulin, Blood 2.8 g/dL (2.2-4.0); Total Protein, Blood 5.2 g/dL (6.4-8.2)
== END 2020-12-28 19:45 | disposition home or self-care (01) ==
LOC: ER 15:59
PROVIDERS: Physician Assistant
DX: R55 Syncope and collapse (principal); E83.51 Hypocalcemia; E87.6 Hypokalemia; Z79.899 Other long term (current) drug therapy; Z99.2 Dependence on renal dialysis
CPT/HCPCS: 36415; 80053; 83735; 84100; 85025; 93005; 93010; 99284-25

== ENCOUNTER 2021-01-07 08:43 | Day surgery (SDC) | payer MEDICARE, BC ==
[~2021-01-07] VITALS: Ht 167.6 cm; Wt 58.6 kg
[2021-01-07] MEDS ORDERED: POTA10T PO (09:16)
--- NOTE | 2021-01-07 13:53 | NUR ---
PT BROUGHT BACK TO RECOVERY ROOM VIA GURNEY, APPEARS TO BE DROWSY, RESPONDS TO VERBAL STIMULI. PERITONEAL DIALYSIS CATHETER PLACEMENT SUCCESSFUL. PLACEMENT IN ABD MID/LEFT SIDE. TRANSPARENT DRESSINGS OVER NEW CATHETER PLACEMENT, NO ACTIVE BLEEDING OR OOZING NOTED. PT DENIES PAIN. VSS. CALL LIGHT IN REACH.
--- NOTE | 2021-01-07 14:39 | NUR ---
PT PROVIDED WITH MEAL TRAY, TOLERATES PO FOOD/FLUIDS WITH NO DIFFICULTIES. HOB AT 90 DEGREES, PT TOLERATES ABD DISCOMFORT, STATES IT IS "KIND OF SORE". WILL CONTINUE TO MONITOR. CALL LIGHT IN REACH.
--- NOTE | 2021-01-07 15:08 | NUR ---
PT VERBALIZED UNDERSTANDING OF D/C INSTRUCTIONS. PAPERWORK PROVIDED IN FOLDER. PT CALLS FOR RIDE HOME. ATE 100 % OF MEAL. NO DISTRESS NOTED. DRESSING FOR PD CATHETER REMAINS INTACT.
--- NOTE | 2021-01-07 16:10 | NUR ---
IV REMOVED FROM LFA WITH CATHETER INTACT, PRESSURE DRESSING APPLIED. PT GETS DRESSED WITH NO NEEDED ASSISTANCE. DISPO PAPERWORK SIGNED. PT TRANSFERS SELF INTO W/C, TAKEN OUT TO PRIVATE VEHICLE. ENCOURAGED TO FOLLOW UP WITH DIALYSIS FOR PERITONEAL DIALYSIS CARE. PT VERBALIZED UNDERSTANDING. NO ACUTE DISTRESS NOTED AT TIME OF DISCHARGE.
== END 2021-01-07 23:51 | disposition home or self-care (01) ==
LOC: MHTC 08:43
DX: N18.6 End stage renal disease (principal); Z94.0 Kidney transplant status; Z98.84 Bariatric surgery status; Z79.82 Long term (current) use of aspirin
CPT/HCPCS: 49418; 76937; 99152; 99153; C1750; C1769; C1887; C1894; J1644; J2250; J3010; J7030; J7040; Q9967

== ENCOUNTER 2021-03-07 11:08 | Emergency (ER) | payer MEDICARE, BC ==
[~2021-03-07] VITALS: Ht 165.1 cm; Wt 53.5 kg
[~2021-03-07 11:08] MED LIST changes: +POTA10T PO
[2021-03-07 11:57] LABS: BASOPHILS ABSOLUTE AUTO 0.05 K/mm3 (0.00-0.23); BASOPHILS PERCENT AUTO 1 % (0-2); EOSINOPHILS ABSOLUTE AUTO 0.07 K/mm3 (0.00-0.68); EOSINOPHILS PERCENT AUTO 1 % (0-6); Hematocrit 37.8 % (33.0-51.0); Hemoglobin 11.8 g/dL (11.5-16.0); IMMATURE GRAN ABSOLUTE AUTO 0.38 K/mm3 (0.00-0.10); IMMATURE GRAN PERCENT AUTO 4 % (0-1); LYMPHOCYTES ABSOLUTE AUTO 1.39 K/mm3 (0.84-5.20); LYMPHOCYTES PERCENT AUTO 13 % (21-46); MONOCYTES ABSOLUTE AUTO 1.06 K/mm3 (0.16-1.47); MONOCYTES PERCENT AUTO 10 % (4-13); Mean Corpuscular HGB 29.4 pg (26.0-34.0); Mean Corpuscular HGB Conc 31.2 g/dL (31.5-36.5); Mean Corpuscular Volume 94 fL (80-100); Mean Platelet Volume 9.7 fL (9.1-12.4); NEUTROPHILS ABSOLUTE AUTO 7.43 K/mm3 (1.96-9.15); NEUTROPHILS PERCENT AUTO 72 % (41-73); NRBC ABSOLUTE 0.07 K/mm3 (0.00-0.02); NRBC Auto 0.7 /100 WBC (0.0-0.2); Platelet Count 189 K/mm3 (150-400); RDW Coefficient Variation 18.9 % (11.7-14.2); RDW Standard Deviation 62.4 fL (35.1-46.3); Red Blood Cell Count 4.01 M/mm3 (3.80-5.20); White Blood Cell Count 10.38 K/mm3 (4.00-11.30)
[2021-03-07 12:07] LABS: Alanine Aminotransfer (ALT/SGP 24 U/L (12-78); Albumin, Blood 2.6 g/dL (3.4-5.0); Alk Phos 60 U/L (50-136); Anion Gap 8 mmol/L (6-16); Aspartate Aminotrans (AST/SGOT 27 U/L (12-37); Bilirubin, Total 0.5 mg/dL (0.1-1.0); Blood Urea Nitrogen 54 mg/dL (8-24); Bun/Creatinine Ratio 22.1 (12.0-20.0); CO2, Blood 24 mmol/L (21-32); Calcium, Blood 6.8 mg/dL (8.5-10.1); Chloride, Blood 112 mmol/L (98-108); Creatinine, Blood 2.44 mg/dL (0.40-1.00); Globulin, Blood 2.5 g/dL (2.2-4.0); Glomerular Filtration Rate 21 (60-); Glucose, Blood 82 mg/dL (70-99); Sodium, Blood 144 mmol/L (136-145); Total Protein, Blood 5.1 g/dL (6.4-8.2); Troponin I <0.015 ng/mL (0.000-0.040)
== END 2021-03-07 13:20 | disposition home or self-care (01) ==
LOC: ER 11:08
PROVIDERS: Emergency Medicine
DX: I48.91 Unspecified atrial fibrillation (principal); Z79.899 Other long term (current) drug therapy; Z79.52 Long term (current) use of systemic steroids
CPT/HCPCS: 36415; 71045; 80053; 84484; 85025; 93005; 93010; 99285-25

== ENCOUNTER → 2021-04-08 | Outpatient (CLI) | payer MEDICARE, BC | END | disposition home or self-care (01) | LOC: LAB 15:45 → LAB SHORT 15:45 | DX: T86.11 Kidney transplant rejection (principal); I10 Essential (primary) hypertension; I82.531 Chronic embolism and thrombosis of right popliteal vein; E53.8 Deficiency of other specified B group vitamins; Z94.0 Kidney transplant status | CPT/HCPCS: 82607; 82746 ==

== ENCOUNTER 2022-09-12 01:25 | Inpatient (IN) | payer MEDICARE, BC ==
[~2022-09-12] VITALS: Ht 167.6 cm; Wt 51.8 kg
[~2022-09-12 01:25] MED LIST changes: +CARB200ER PO
[2022-09-12 03:04] LABS: BASOPHILS ABSOLUTE AUTO 0.05 K/mm3 (0.00-0.23); BASOPHILS PERCENT AUTO 0 % (0-2); EOSINOPHILS ABSOLUTE AUTO 0.07 K/mm3 (0.00-0.68); EOSINOPHILS PERCENT AUTO 1 % (0-6); Hematocrit 40.6 % (33.0-51.0); IMMATURE GRAN ABSOLUTE AUTO 0.19 K/mm3 (0.00-0.10); IMMATURE GRAN PERCENT AUTO 2 % (0-1); LYMPHOCYTES ABSOLUTE AUTO 1.34 K/mm3 (0.84-5.20); LYMPHOCYTES PERCENT AUTO 10 % (21-46); MONOCYTES ABSOLUTE AUTO 0.88 K/mm3 (0.16-1.47); MONOCYTES PERCENT AUTO 7 % (4-13); Mean Corpuscular HGB 29.6 pg (26.0-34.0); Mean Corpuscular Volume 93 fL (80-100); Mean Platelet Volume 9.5 fL (9.1-12.4); NEUTROPHILS ABSOLUTE AUTO 10.45 K/mm3 (1.96-9.15); NEUTROPHILS PERCENT AUTO 81 % (41-73); NRBC ABSOLUTE 0.03 K/mm3 (0.00-0.02); NRBC Auto 0.2 /100 WBC (0.0-0.2); Platelet Count 423 K/mm3 (150-400); RDW Coefficient Variation 14.5 % (11.7-14.2); RDW Standard Deviation 48.4 fL (35.1-46.3); Red Blood Cell Count 4.39 M/mm3 (3.80-5.20); White Blood Cell Count 12.98 K/mm3 (4.00-11.30)
[2022-09-12 03:25] LABS: Albumin, Blood 2.8 g/dL (3.4-5.0); Albumin/Globulin Ratio 0.8 (0.8-1.8); Bilirubin, Total 0.2 mg/dL (0.1-1.0); Bun/Creatinine Ratio 21.2 (12.0-20.0); Calcium, Blood 8.5 mg/dL (8.5-10.1); Creatinine, Blood 2.55 mg/dL (0.40-1.00); Globulin, Blood 3.5 g/dL (2.2-4.0); Potassium, Blood 3.6 mmol/L (3.5-5.5); Total Protein, Blood 6.3 g/dL (6.4-8.2)
[2022-09-12 04:41] LABS: Influenza A, PCR NEGATIVE (NEGATIVE); Influenza B, PCR NEGATIVE (NEGATIVE); Resp Syncytial Virus, PCR NEGATIVE (NEGATIVE); SARS-Cov-2 (COVID-19) PCR, MMC NEGATIVE (NEGATIVE)
[2022-09-12 05:50] LABS: Source, Urine Clean Catch
[2022-09-12 06:12] LABS: Appearance, Urine Clear (Clear); Bilirubin, Urine Neg (Neg); Blood, Urine 2+ (Neg); Color, Urine Yellow (P-Yellow); Glucose Qualitative, Urine Neg (Neg); Ketones, Urine Neg (Neg); Leukocyte Esterase, Urine 3+ (Neg); Nitrite, Urine Neg (Neg); Protein, Urine 3+ (Neg); Specific Gravity, Urine 1.015 (1.003-1.022); Urobilinogen, Urine NORM (Normal)
[2022-09-12 06:23] LABS: White Blood Cells, Urine TNTC /hpf (0-5)
[2022-09-12 06:24] LABS: Bacteria Many /hpf; Squamous Epithelial Cells Few /hpf (Few); Transitional Epithelial Cells Few /hpf (0-Rare)
[2022-09-12 10:13] LABS: Automated BF WBC Count 18.234 K/mm3 (0-999); Body Fluid WBC Count 18234 /mm3 (0-999)
[2022-09-12 10:44] LABS: RBC Count, Body Fluid 290 /mm3 (0-0)
[2022-09-12 10:58] LABS: Total Cell Count, Body Fluid 100
[2022-09-12 10:59] LABS: Appearance, Body Fluid Cloudy (Clear); Color, Body Fluid L Yellow (None-Yellow)
--- NOTE | 2022-09-12 15:33 | NUR ---
DIALYSIS-PD PT CAME IN FOR CRAMPING TO LOWER ABDOMEN, SAMPLE TAKEN WAS CLOUDY AND SENT TO LAB FOR ANALYSIS, PT'S CONNECTED TO IN/OUT FLUSH PER DR MATOS'S ORDER.
--- NOTE | 2022-09-12 17:57 | NUR ---
DIALYSIS-PD TX COMPLETED FOR IN AND OUT FLUSH, DISCONNECTED PER PROTOCOL. ID [id number] AND UF [phone]. OUTPUT CLOUDY.
--- NOTE | 2022-09-12 18:03 | NUR ---
DIALYSIS-PD PD TX STARTED PER PROTOCOL. ANTIBIOTIC TX WITH LAST DWELL TIME. CONNECTED ASEPTICALLY. PT WAS EATING WHEN LEFT THE ROOM AND PRESENT AT BEDSIDE.
--- NOTE | 2022-09-12 18:08 | NUR ---
PT ARRIVED FROM [facility] VIA STRETCHER PT ABLE TO STAND AMBULATE TO TRANSFER TO PCU BED ASSISTED. PT IS ALERT AND ORIENTED X3, ANSWERS QUESTIONS APPROPRIATELY ABLE TO MAKE NEEDS KNOWN. VITALS HRR SR 80'S, SOFT SBP'S 90-100'S MAP ABOVE 65, SATS ABOVE 95% ON RA, AFEBRILE. PT HAS PERITONEAL DIAYLIS CATH WITH DRESSING CDI. DIALYSIS ONGOING AT THIS TIME UNTIL TOMORROW AM. PT DENIES ANY KIND OF PAIN AT THIS TIME. AT THE BEDSIDE. PT TOLERATING DIET. LR RUNNING AT 75MLS/HR. PT AMBULATED TWICE TO THE BATHROOM VIA WALKER ASSISTED, PT REPORTED SMALL AMOUNT OF URINE. NO REPORTED BM. NO OTHER ISSUES ENCOUNTERED, CALL LIGHTS IN REACH, WILL REPORT TO ONCOMING SHIFT
--- NOTE | 2022-09-13 06:16 | NUR ---
shift summary no acute changes this shift. pt alert, independent in room. vss, bp soft. per dialysis running during shift to left abd dialysis port. fluids infused per emar. up to bathroom to void multiple times. denied pain. call light in reach.
--- NOTE | 2022-09-13 07:07 | NUR ---
PT AWAKE / ALERT / OUT OF BED, AMBULATING TO BR AND BACK TO BED. OVERNIGHT CCPD COMPLETE ORDERED. EFFLUENT MILD CLOUDY. NO FIBRIN. PT AESEPTICALLY DISCONNECTED AND CAPPED. CYCLER STRIPPED AND CLEANED. DR MATOS CONSULTED FOR NEW ORDERS / PLAN OF CARE.
[2022-09-13 07:41] LABS: Hematocrit 32.2 % (33.0-51.0); Hemoglobin 10.4 g/dL (11.5-16.0); Mean Corpuscular HGB 29.2 pg (26.0-34.0); Mean Corpuscular HGB Conc 32.3 g/dL (31.5-36.5); Mean Corpuscular Volume 90 fL (80-100); Mean Platelet Volume 9.9 fL (9.1-12.4); Platelet Count 343 K/mm3 (150-400); RDW Coefficient Variation 14.3 % (11.7-14.2); RDW Standard Deviation 45.7 fL (35.1-46.3); Red Blood Cell Count 3.56 M/mm3 (3.80-5.20); White Blood Cell Count 6.34 K/mm3 (4.00-11.30)
[2022-09-13 07:58] LABS: Anion Gap 9 mmol/L (6-16); Blood Urea Nitrogen 37 mg/dL (8-24); Bun/Creatinine Ratio 17.5 (12.0-20.0); CO2, Blood 24 mmol/L (21-32); Calcium, Blood 7.7 mg/dL (8.5-10.1); Chloride, Blood 109 mmol/L (98-108); Creatinine, Blood 2.12 mg/dL (0.40-1.00); Glomerular Filtration Rate 24 (60-); Glucose, Blood 89 mg/dL (70-99); Magnesium, Blood 1.2 mg/dL (1.6-2.4); Phosphorus, Blood 2.8 mg/dL (2.5-4.9); Potassium, Blood 2.8 mmol/L (3.5-5.5); Sodium, Blood 142 mmol/L (136-145); Vancomycin, Random 9.2 ug/mL
[2022-09-13 13:15] LABS: Automated BF WBC Count 2.286 K/mm3 (0-999)
[2022-09-13 14:12] LABS: Body Fluid WBC Count 2286 /mm3 (0-999)
[2022-09-13 14:45] LABS: RBC Count, Body Fluid 48 /mm3 (0-0)
[2022-09-13 14:53] LABS: Appearance, Body Fluid Hazy (Clear); Color, Body Fluid L Yellow (None-Yellow); Total Cell Count, Body Fluid 100
--- NOTE | 2022-09-13 17:44 | NUR ---
PT ALERT ORIENTED , SITTING UP IN BED WATCHING TV. NO C/O ABD PAIN OR OTHER SIGNIFICANT DISCOMFORT. OVERNIGHT CCPD SET UP PER RX. CYCLER STRUNG, PRIMED AND PROGRAMMED ORDERED. WHEN PRIME COMPLETE, PT CONNECTED AND THERAPY STARTED. PT MONITORED THROUGH INITIAL DRAIN AND START OF FILL #1. NO DISCOMFORT REPORTED. EXIT SITE CARE DONE. SITE CLEANED AND REDRESSED. SITE DRY , TIGHT , AND NON-TENDER. PCU STAFF AWARE O9F OVERNIGHT THERAPY IN PROGRESS.
--- NOTE | 2022-09-13 18:29 | NUR ---
SHIFT SUMMARY PT A/O X4; PLEASANT AND COOPERATIVE WITH CARE. UP TO THE BATHROOM WITH SBA. NO ACUTE CHANGES THIS SHIFT. BP'S REMAIN SOFT WITH SBP IN THE 90'S. NO C/O PAIN OR ABD DISCOMFORT.
[2022-09-14 05:07] LABS: BASOPHILS ABSOLUTE AUTO 0.02 K/mm3 (0.00-0.23); BASOPHILS PERCENT AUTO 0 % (0-2); EOSINOPHILS ABSOLUTE AUTO 0.18 K/mm3 (0.00-0.68); EOSINOPHILS PERCENT AUTO 3 % (0-6); Hematocrit 30.2 % (33.0-51.0); Hemoglobin 9.7 g/dL (11.5-16.0); IMMATURE GRAN PERCENT AUTO 2 % (0-1); LYMPHOCYTES ABSOLUTE AUTO 1.79 K/mm3 (0.84-5.20); LYMPHOCYTES PERCENT AUTO 30 % (21-46); MONOCYTES ABSOLUTE AUTO 0.73 K/mm3 (0.16-1.47); MONOCYTES PERCENT AUTO 12 % (4-13); Mean Corpuscular HGB 29.3 pg (26.0-34.0); Mean Corpuscular HGB Conc 32.1 g/dL (31.5-36.5); Mean Corpuscular Volume 91 fL (80-100); Mean Platelet Volume 9.8 fL (9.1-12.4); NEUTROPHILS ABSOLUTE AUTO 3.07 K/mm3 (1.96-9.15); NEUTROPHILS PERCENT AUTO 52 % (41-73); Platelet Count 342 K/mm3 (150-400); RDW Coefficient Variation 14.6 % (11.7-14.2); RDW Standard Deviation 46.2 fL (35.1-46.3); Red Blood Cell Count 3.31 M/mm3 (3.80-5.20); White Blood Cell Count 5.89 K/mm3 (4.00-11.30)
[2022-09-14 05:42] LABS: Albumin, Blood 1.8 g/dL (3.4-5.0); Anion Gap 10 mmol/L (6-16); Blood Urea Nitrogen 33 mg/dL (8-24); CO2, Blood 25 mmol/L (21-32); Calcium, Blood 7.3 mg/dL (8.5-10.1); Chloride, Blood 107 mmol/L (98-108); Creatinine, Blood 1.94 mg/dL (0.40-1.00); Glomerular Filtration Rate 27 (60-); Glucose, Blood 119 mg/dL (70-99); Magnesium, Blood 1.4 mg/dL (1.6-2.4); Phosphorus, Blood 2.6 mg/dL (2.5-4.9); Potassium, Blood 2.6 mmol/L (3.5-5.5); Sodium, Blood 142 mmol/L (136-145); Vancomycin, Random 14.6 ug/mL
--- NOTE | 2022-09-14 07:00 | NUR ---
PT AWAKE / ALERT / RESTING IN BED / NO COMPLAINTS. OVERNIGHT CCPD COMPLETE ORDERED. EFFLUENT CLEAR. NO FIBRIN NOTED. PT AESEPTICALLY DISCONNECTED AND CAPPED. CYCLER STRIPPED AND CLEANED. DR MATOS CONSULTED FOR NEW ORDERS / PLAN OF CARE.
--- NOTE | 2022-09-14 17:11 | NUR ---
SHIFT SUMMARY; ASSUMED CARE AT 0700. A/A/OX4. RESTING QUIETLY IN BED. PERITONEAL DIALYSIS COMPLETE. SPOUSE AT BEDSIDE MOST OF SHIFT. UP TO BEDSIDE COMMODE WITH SBA. VSS, REPOSITIONS SELF IN BED NEEDED. TRANSFER TO MEDICAL FLOOR ON TELEMETRY, REPORT GIVEN.
--- NOTE | 2022-09-14 17:36 | NUR ---
TRANSFER/ SHIFT NOTE PATIENT ARRIVED FROM [facility]. PATIENT AND PATIENTS WERE ORIENTATED TO ROOM.
--- NOTE | 2022-09-14 19:46 | NUR ---
DIALYSIS-PD PT APPEARS IN GOOD SPIRIT, TALKATIVE. SETUP HER DIALYSIS PER PROTOCAL WITH LAST FILL OF ANTIBIOTICS. NO C/O AT THIS TIME.
[2022-09-14] MEDS ORDERED: CHOLP PO (23:15)
[2022-09-14] MEDS ORDERED: METO5 PO (23:16)
--- NOTE | 2022-09-15 00:33 | NUR ---
PT ON PERITONEAL DIALYSIS. PD IN USE. CHEERFUL WHEN SPEAKING TO STAFF. UP AD MICHAEL. CALL LIGHT IN REACH
--- NOTE | 2022-09-15 03:03 | NUR ---
HVAC SPECIALIST SUMMARY PERITONEAL DIALYSIS CONTINUES THROUGHOUT THE NIGHT. UP AD MICHAEL TO THE BATHROOM. VSS. NO C/O VOICED. MED TELE SINUS RHYTHM. HAS BEEN RESTING QUIETLY WITH EFW INTERRUPTIONS. CALL LIGHT IN REACH. WILL CONTINUE TO MONITOR
[2022-09-15 05:49] LABS: BASOPHILS ABSOLUTE AUTO 0.04 K/mm3 (0.00-0.23); BASOPHILS PERCENT AUTO 1 % (0-2); EOSINOPHILS ABSOLUTE AUTO 0.16 K/mm3 (0.00-0.68); EOSINOPHILS PERCENT AUTO 3 % (0-6); Hemoglobin 9.4 g/dL (11.5-16.0); IMMATURE GRAN ABSOLUTE AUTO 0.09 K/mm3 (0.00-0.10); IMMATURE GRAN PERCENT AUTO 2 % (0-1); LYMPHOCYTES ABSOLUTE AUTO 1.67 K/mm3 (0.84-5.20); LYMPHOCYTES PERCENT AUTO 33 % (21-46); MONOCYTES ABSOLUTE AUTO 0.58 K/mm3 (0.16-1.47); MONOCYTES PERCENT AUTO 11 % (4-13); Mean Corpuscular HGB 29.7 pg (26.0-34.0); Mean Corpuscular HGB Conc 32.4 g/dL (31.5-36.5); Mean Corpuscular Volume 92 fL (80-100); Mean Platelet Volume 9.6 fL (9.1-12.4); NEUTROPHILS ABSOLUTE AUTO 2.58 K/mm3 (1.96-9.15); NEUTROPHILS PERCENT AUTO 50 % (41-73); Platelet Count 331 K/mm3 (150-400); RDW Coefficient Variation 14.6 % (11.7-14.2); RDW Standard Deviation 48.1 fL (35.1-46.3); Red Blood Cell Count 3.16 M/mm3 (3.80-5.20); White Blood Cell Count 5.12 K/mm3 (4.00-11.30)
[2022-09-15 06:17] LABS: Magnesium, Blood 1.8 mg/dL (1.6-2.4)
[2022-09-15 06:20] LABS: Albumin, Blood 1.8 g/dL (3.4-5.0); Anion Gap 7 mmol/L (6-16); Blood Urea Nitrogen 28 mg/dL (8-24); Bun/Creatinine Ratio 14.7 (12.0-20.0); CO2, Blood 27 mmol/L (21-32); Calcium, Blood 7.8 mg/dL (8.5-10.1); Chloride, Blood 107 mmol/L (98-108); Creatinine, Blood 1.91 mg/dL (0.40-1.00); Glomerular Filtration Rate 27 (60-); Glucose, Blood 115 mg/dL (70-99); Potassium, Blood 2.9 mmol/L (3.5-5.5); Sodium, Blood 141 mmol/L (136-145); Vancomycin, Random 17.2 ug/mL
--- NOTE | 2022-09-15 07:20 | NUR ---
PT AWAKE / ALERT / RESTING IN BED / NO COMPLAINTS. OVERNIGHT CCPD COMPLETE ORDERED. EFFLUENT CLEAR. NO FIBRIN NOTED. PT AESEPTICALLY DISCONNECTED AND CAPPED. IDRAIN 446, TUF (-)448, AVG DWELL [id number], 26MIN. CYCLER STRIPPED AND CLEANED. DR MATOS CONSULTED FOR NEW ORDERS / PLAN OF CARE.
[2022-09-15] MEDS ORDERED: CEPH500 PO (12:49)
[2022-09-15] MEDS ORDERED: VISBIOME 112.51 EACH PO (12:52)
--- NOTE | 2022-09-15 14:56 | NUR ---
DISCHARGE SUMMARY PATIENT IS ALERT AND ORIENTED. PATIENT IS BEING DISCHARGED HOME WITH TRANSPORTING. PATIENT HAD DIALYSIS OVERNIGHT AND IN MORNING. PATIENT HAS HAD NO ACUTE EVENTS THIS SHIFTS. VITAL SIGNS REVIEWED.
== END 2022-09-15 14:35 | disposition home health service (06) | DRG 919 ==
LOC: ER 01:25 → PCU 11:24 → MEDS 09-14 17:06
PROVIDERS: Emergency Medicine; Internal Medicine; Internal Medicine Nephrology; Student in an Organized Health Care Education/Training Program; ADMIT Internal Medicine
DX: T85.71XA Infection and inflammatory reaction due to peritoneal dialysis catheter, initial encounter (principal); A41.9 Sepsis, unspecified organism; K65.9 Peritonitis, unspecified; N18.6 End stage renal disease; Z94.0 Kidney transplant status; N39.0 Urinary tract infection, site not specified; N25.81 Secondary hyperparathyroidism of renal origin; E87.29 Other acidosis; K59.00 Constipation, unspecified; D63.1 Anemia in chronic kidney disease; E83.42 Hypomagnesemia; E87.6 Hypokalemia; I48.91 Unspecified atrial fibrillation; E78.5 Hyperlipidemia, unspecified; M10.9 Gout, unspecified; Z88.8 Allergy status to other drugs, medicaments and biological substances; Z79.899 Other long term (current) drug therapy; Z98.84 Bariatric surgery status; Z98.890 Other specified postprocedural states; Z90.89 Acquired absence of other organs; Z86.718 Personal history of other venous thrombosis and embolism; Y83.8 Other surgical procedures as the cause of abnormal reaction of the patient, or of later complication, without mention of misadventure at the time of the procedure
CPT/HCPCS: 0241U; 36415; 74176; 80053; 80069; 80202; 80400; 81001; 82533; 83605; 83690; 83735; 85025; 85027; 87040; 87070; 87077; 87086; 87186; 89051; 93005; 93010; A9270; C1751; J0690; J0692; J0696; J0713; J0834; J0881; J1644; J3370; J3475; J3480; J7050; J7120

== ENCOUNTER 2023-01-14 15:33 | Inpatient (IN) | payer MEDICARE, BC ==
[~2023-01-14] VITALS: Ht 167.6 cm; Wt 63.9 kg
[~2023-01-14 15:33] MED LIST changes: +CEPH500 PO; +CHOLP PO; +METO5 PO; +VISBIOME 112.51 EACH PO
[2023-01-14 16:18] LABS: BASOPHILS PERCENT AUTO 1 % (0-2); EOSINOPHILS ABSOLUTE AUTO 0.14 K/mm3 (0.00-0.68); EOSINOPHILS PERCENT AUTO 2 % (0-6); Hematocrit 33.4 % (33.0-51.0); IMMATURE GRAN ABSOLUTE AUTO 0.23 K/mm3 (0.00-0.10); IMMATURE GRAN PERCENT AUTO 3 % (0-1); LYMPHOCYTES ABSOLUTE AUTO 1.47 K/mm3 (0.84-5.20); LYMPHOCYTES PERCENT AUTO 16 % (21-46); MONOCYTES ABSOLUTE AUTO 0.76 K/mm3 (0.16-1.47); MONOCYTES PERCENT AUTO 8 % (4-13); Mean Corpuscular HGB 29.5 pg (26.0-34.0); Mean Corpuscular HGB Conc 32.9 g/dL (31.5-36.5); Mean Corpuscular Volume 90 fL (80-100); NEUTROPHILS ABSOLUTE AUTO 6.58 K/mm3 (1.96-9.15); NEUTROPHILS PERCENT AUTO 71 % (41-73); RDW Coefficient Variation 14.9 % (11.7-14.2); RDW Standard Deviation 48.4 fL (35.1-46.3); Red Blood Cell Count 3.73 M/mm3 (3.80-5.20); White Blood Cell Count 9.28 K/mm3 (4.00-11.30)
[2023-01-14] MEDS ORDERED: ASPI81CH PO (16:21)
[2023-01-14] MEDS ORDERED: BUME1 PO (16:22)
[2023-01-14] MEDS ORDERED: CARBATROL PO (16:23)
[2023-01-14] MEDS ORDERED: CALC.25 PO (16:23)
[2023-01-14] MEDS ORDERED: Diflucan100 MG PO (16:23)
[2023-01-14 16:25] LABS: International Normalized Ratio 1.02; Prothrombin Time Results 10.7 Sec (9.7-11.5)
[2023-01-14 16:27] LABS: Albumin, Blood 2.2 g/dL (3.4-5.0); Albumin/Globulin Ratio 0.6 (0.8-1.8); Bilirubin, Total 0.2 mg/dL (0.1-1.0); Bun/Creatinine Ratio 17.1 (12.0-20.0); Calcium, Blood 8.5 mg/dL (8.5-10.1); Creatinine, Blood 3.1 mg/dL (0.40-1.00); Globulin, Blood 3.4 g/dL (2.2-4.0); Potassium, Blood 4.3 mmol/L (3.5-5.5); Total Protein, Blood 5.6 g/dL (6.4-8.2)
[2023-01-14 16:38] LABS: Platelet Count 387 K/mm3 (150-400)
[2023-01-14 18:09] LABS: CHOL/HDL RATIO 2.7; CPK Creatine Kinase 394 U/L (26-193); Cholesterol 179 mg/dL (50-200); HDL Cholesterol 67 mg/dL (>39); LDL/HDL RATIO 1.5; Low Density Lipoprotein Chol 98 mg/dL (0-110); Triglycerides 72 mg/dL (30-160); Very Low Density Lipoprot Chol 14 mg/dL (6-32)
[2023-01-14 18:26] LABS: Creatine Kinase MB 38.1 ng/mL (0.0-3.6); Creatine Kinase MB Index 9.7 (0.0-4.0)
--- NOTE | 2023-01-14 18:51 | NUR ---
SUMMARY PT ADMITTED TO ICU FROM ER AFTER GOING TO FLATWARE MAKER. PT IS A/O X4. DENIES CP OR PRESSURE. HAS R FEMORAL SHEATH IN PLACE. ACT WAS TOO HIGH TO PULL WHILE IN FLATWARE MAKER. ON BIVALIRUDIN PER DR. CHAUDHARI ORDERS. PT IS COMPLIANT WITH LAYING FLAT WITHOUT FLEXION OF THE GROIN OR NECK. HORSE WRANGLER HERE TO PLACE PT ON PD DIALYSIS FOR THE NIGHT PER DR. MATOS. NO SIGN OF DISTRESSS, SPOUSE AT BEDSIDE.
--- NOTE | 2023-01-14 20:11 | NUR ---
PERITONEAL DIALYSIS NOTE: PATIENT IN BED, ALERT AND ORIENTED TO PERSON,PLACE AND TIME. TIME OUT COMPLETED AT 2000, RIGHT PATIENT, RIGHT PROCEDURE. DIALYSIS CYCLER SET-UP PER ORDERS USING ASEPTIC TECHNIQUE. PATIENT HAS NO COMPLAINTS OF DYSPNEA OR ABDOMINAL PAIN. BLE EDEMA NOTED. PATIENT TO RUN 4 HOURS WITH EXHCANGES OF 1600ML AND LAST FILL 200ML. DWELL TIME OF 98 MINUTES. PD CATHETER DRESSING CHANGED WITH NO SIGNS OR SYMPTOMS OF INFECTION NOTED. PATIENT CONNECTED CYCLER AND TREATMENT STARTED AND RUNNING WITHOUT PROBLEMS. SBAR REPORT GIVEN TO UNIT RN. FOR MACHINE PROBLEMS PLEASE CALL CALCINE FURNACE TENDER ON TOP OF THE PD MACHINE.
--- NOTE | 2023-01-14 22:25 | NUR ---
R GROIN SHEATH REMOVED WITH MANUAL PRESSURE HELD FOR 20 MINUTES WITH GOOD HEMOSTATSIS.
--- NOTE | 2023-01-15 01:18 | NUR ---
DIALYSIS-PD CALLED RECIEVED FROM FIRMWARE TEST ENGINEER ABOUT LOW FLOW ALARM ON PT'S PD MACHINE. TOLD HER TO PUSH STOP. CAME IN AND THE MACHINE SAID TX COMPLETED. ID [id number], UF [id number] ML. 1:28 AVERAGE DWELL TIME, DC'ED TX PER PROTOCAL. PT DOESN'T REMEMBER HER NORMAL UF. FLUID CLEAR, YELLOW WITH NO FIBRIN NOTED. PT DENIED ANY DISCOMFORT DUE TO TX.
[2023-01-15 02:28] LABS: Creatine Kinase MB 71.3 ng/mL (0.0-3.6); Creatine Kinase MB Index 11.2 (0.0-4.0)
[2023-01-15 03:50] LABS: BASOPHILS ABSOLUTE AUTO 0.06 K/mm3 (0.00-0.23); BASOPHILS PERCENT AUTO 1 % (0-2); EOSINOPHILS ABSOLUTE AUTO 0.11 K/mm3 (0.00-0.68); EOSINOPHILS PERCENT AUTO 1 % (0-6); Hematocrit 34.8 % (33.0-51.0); Hemoglobin 11.2 g/dL (11.5-16.0); IMMATURE GRAN ABSOLUTE AUTO 0.14 K/mm3 (0.00-0.10); IMMATURE GRAN PERCENT AUTO 2 % (0-1); LYMPHOCYTES ABSOLUTE AUTO 1.93 K/mm3 (0.84-5.20); LYMPHOCYTES PERCENT AUTO 21 % (21-46); MONOCYTES ABSOLUTE AUTO 1.14 K/mm3 (0.16-1.47); MONOCYTES PERCENT AUTO 13 % (4-13); Mean Corpuscular HGB 29.1 pg (26.0-34.0); Mean Corpuscular HGB Conc 32.2 g/dL (31.5-36.5); Mean Corpuscular Volume 90 fL (80-100); Mean Platelet Volume 9.9 fL (9.1-12.4); NEUTROPHILS ABSOLUTE AUTO 5.75 K/mm3 (1.96-9.15); NEUTROPHILS PERCENT AUTO 63 % (41-73); Platelet Count 421 K/mm3 (150-400); RDW Standard Deviation 48.8 fL (35.1-46.3); Red Blood Cell Count 3.85 M/mm3 (3.80-5.20); White Blood Cell Count 9.13 K/mm3 (4.00-11.30)
[2023-01-15 04:05] LABS: Anion Gap 4 mmol/L (6-16); Blood Urea Nitrogen 49 mg/dL (8-24); Bun/Creatinine Ratio 17.4 (12.0-20.0); CO2, Blood 26 mmol/L (21-32); Calcium, Blood 8.4 mg/dL (8.5-10.1); Chloride, Blood 115 mmol/L (98-108); Creatinine, Blood 2.81 mg/dL (0.40-1.00); Glomerular Filtration Rate 17 (60-); Glucose, Blood 110 mg/dL (70-99); Phosphorus, Blood 2.9 mg/dL (2.5-4.9); Potassium, Blood 4.2 mmol/L (3.5-5.5); Sodium, Blood 145 mmol/L (136-145)
--- NOTE | 2023-01-15 06:37 | NUR ---
PT IS AOX4 RESTING COMFORTABLY. RLE SHEATH REMOVED YEST AT 2157. RLE WARM, PERFUSING WELL WITH GOOD PULSES, NO SIGNS OF BLEED. NO CV SYMPTOMS OVERNIGHT. VSS. TROPONIN REMAINS HIGH. PT URINATING OFTEN PER BEDPAN WITH 2 PERSON ASSIST. POSS SHEATH PLACEMENT ON LLE IN FUTURE.
[2023-01-15] MEDS ORDERED: Calcium Carbon500 MG PO (09:43)
[2023-01-15] MEDS ORDERED: METO5 PO (09:47)
[2023-01-15] MEDS ORDERED: HAIR, SKIN AND1 EAC3 PO (09:47)
[2023-01-15] MEDS ORDERED: MIDO5 PO (09:48)
[2023-01-15] MEDS ORDERED: NEURIVA PO (09:53)
[2023-01-15] MEDS ORDERED: POTCHL20ER PO (09:54)
[2023-01-15] MEDS ORDERED: PROFERRIN PO (09:54)
[2023-01-15] MEDS ORDERED: ROPI.25 PO (09:55)
[2023-01-15] MEDS ORDERED: SODBIC650 PO (09:55)
[2023-01-15] MEDS ORDERED: PROBIOTIC1 EA13 PO (09:56)
[2023-01-15] MEDS ORDERED: MAGCHL64ER PO (09:58)
--- NOTE | 2023-01-15 10:13 | NUR ---
PT A/OX4, DENIES CP OR PRESSURE. R FEMORAL ACCESS SITE IS STABLE. PT OOB TO BATHROOM WITH MINIMAL ASSIST THIS AM. ABLE TO USE CALL LIGHT APPROPRIATELY. ECHO DONE THIS AM. EKG DONE AND DR. CHAUDHARI AWARE WELL TRENDING TROPONINS. NO SIGN OF DISTRESS. TRANSFERING TO PCU 14, REPORT GIVEN TO BANDAR.
[2023-01-15 10:39] LABS: Creatine Kinase MB 35.3 ng/mL (0.0-3.6); Creatine Kinase MB Index 8.3 (0.0-4.0)
--- NOTE | 2023-01-15 11:00 | NUR ---
NURSING PCU DAYSHIFT: Assumed care of pt at approx 1045. Arrived from ICU via w/c accompanied by PCT. Xferred independently to unit bed w/o difficulty. No c/o dizziness/light headedness. Skin is fragile w/no breakdown noted, R femoral access w/no bleed or hematoma noted and dressing in place. Tele in place, NSR, no c/o CP/pressure, BP stable, trace BLE edema. L/S cta t/o, O2 sat 100% on RA, denies dyspnea, no noted cough. Abd SNT, BT+, c/o "gas bubbles" and requests medication which pt uses at home, voids w/o difficulty, experiences oliguria d/t hx of ESRD. PIV x1, s/l. No s/s of acute distress upon arrival to the unit. Pt appears in good spirits and denies any questions regarding plan of care. F/U angiogram to be completed prior to discharge for additional stent placement. Call light in reach, cont to monitor for any changes.
--- NOTE | 2023-01-15 11:00 | NUR ---
NURSING PCU DAYSHIFT: Assumed care of pt at approx 1045. Arrived from ICU via w/c accompanied by PCT. Xferred independently to unit bed w/o difficulty. No c/o dizziness/light headedness. Skin is fragile w/no breakdown noted, R femoral access w/no bleed or hematoma noted and dressing in place. Tele in place, NSR, no c/o CP/pressure, BP stable, trace BLE edema. L/S cta t/o, O2 sat 100% on RA, denies dyspnea, no noted cough. Abd SNT, BT+, c/o "gas bubbles" and requests medication which pt uses at home, voids w/o difficulty, oliguria reported in medical record d/t hx of ESRD. PIV x1, s/l. No s/s of acute distress upon arrival to the unit. Pt appears in good spirits and denies any questions regarding plan of care. F/U angiogram to be completed prior to discharge for additional stent placement. Call light in reach, cont to monitor for any changes.
--- NOTE | 2023-01-15 20:11 | NUR ---
PERITIONAL DIALYSIS NOTE: Patient transferred to PCU 14. In Bed alert and oriented to person, time and place. Time out completed at 1930. Initiated treatment per protocol. Patient has no complaints. Noted BLE edema pitting 1+. Patient to RUN 4 hours with 2 exhcanges of 1600 ml and last fill 200. Dwell time of 98 minutes. PD catheter dressing changed with no signs and symptoms of infection. Report given to PRINT PROJECT MANAGER.
--- NOTE | 2023-01-15 22:54 | NUR ---
UPDATE MINE ANALYST PROVIDER NOTIFIED OF HEMATEMESIS X1 WELL SOFT BP'S THIS SHIFT. NEW ORDER FOR H&H AND PROTONIX. WILL CONTINUE TO MONITOR BP AND NOTIFY PROVIDER OR ANY FURTHER CHANGES.
[2023-01-15 23:29] LABS: Hematocrit 42.2 % (33.0-51.0); Hemoglobin 13.7 g/dL (11.5-16.0)
[2023-01-16 04:12] LABS: Hematocrit 39.3 % (33.0-51.0); Hemoglobin 12.9 g/dL (11.5-16.0)
[2023-01-16 04:29] LABS: Albumin, Blood 1.9 g/dL (3.4-5.0); Anion Gap 7 mmol/L (6-16); Blood Urea Nitrogen 48 mg/dL (8-24); Bun/Creatinine Ratio 16.6 (12.0-20.0); CO2, Blood 23 mmol/L (21-32); Calcium, Blood 8.4 mg/dL (8.5-10.1); Chloride, Blood 113 mmol/L (98-108); Glomerular Filtration Rate 16 (60-); Glucose, Blood 145 mg/dL (70-99); Magnesium, Blood 1.8 mg/dL (1.6-2.4); Phosphorus, Blood 3.4 mg/dL (2.5-4.9); Potassium, Blood 4.1 mmol/L (3.5-5.5); Sodium, Blood 143 mmol/L (136-145)
--- NOTE | 2023-01-16 05:31 | NUR ---
SHIFT SUMMARY A/OX4, GENARLIZED WEAKNESS, 1P ASSIST TO BSC WITH GB. Guadalupe JACINTO SITE C/D/I. TELE SR IN THE 80S, DENIES CHEST PAIN/PRESSURE. SPO2 >92% ON RA. 1 EPISODE OF BLOOD TINGED EMESIS, PLEASE SEE PREVIOUS NOTE. PD COMPLETED THIS SHIFT. BP SOFT WITH MAP >70. BED IN LOWEST POSITION WITH CALL LIGHT IN REACH. WILL CONTINUE TO MONITOR AND REPORT TO ONCOMING RN.
--- NOTE | 2023-01-16 06:52 | NUR ---
PERITONEAL DIALYSIS NOTE: Patient in Bed, alert and oriented. Edema to BLE pitting 1+. Respirations even and unlabored. Patient ran full cycler treatment without problems. Patient disconnected from cycler and line recapped using aseptic technique. Cyler cleaned off and removed from room. Will update primary RN. Initial Drain= 376ml Total Net UF = 298ml
--- NOTE | 2023-01-16 12:57 | NUR ---
PHYSICIAN CONTACT DR. CHAUDHARI NOTIFIED OF PT FEELING SLEEPY MOST THE DAY AND HER DIZZINESS WITH CHANGE IN BODY MOVEMENT. ORDER FOR 500 CC NS FLUID BOLUS ORDERED.
--- NOTE | 2023-01-16 16:26 | NUR ---
SHIFT SUMMARY PT DIZZY T/O THE SHIFT WITH HYPOTENSION. BOLUSED 500 CC ML NS WITH GOOD RESULTS FOR BP. UP TO 115/70. CONCERNS FOR BLOOD IN PTS EMESIS OVERNIGHT. LOOSE STOOLS STARTED THIS SHIFT. SO FAR [address] ORANGE IN COLOR[address] CHAUDHARI REQUESTING OCCULT FOR BOTH HER STOOL AND EMESIS. STOOL COLLECTED. PT CONVERTED TO AFIB RVR AT 1520 SUSTAINING IN THE 150S. TO CONVERTED BACK TO NSR AT 1545 WITH A RATE IN THE 90S. EKG COLLECTED DURING RVR EPISODE. DR. CHAUDHARI REVIEWED IT. SQ HEPARIN STOPPED. SKIN TEAR TO L UA CLEANED & COVERED WITH MEPITEL. PT GIVEN AM DOSE OF PO LOPRESSOR PER DR. CHAUDHARI THIS AFTERNOON TO BE FOLLOWED WITH ANOTHER DOSE TONIGHT. PT DENIES OTHER NEEDS AT THIS TIME. VS REVIEWED.
--- NOTE | 2023-01-16 17:37 | NUR ---
AFIB RVR & N/V. PT NAUSEATED AFTER GETTING BACK IN BED FROM COMMODE. PT CONVERTED BACK TO AFIB RVR AT 1720 WITH A RATE IN THE 140-160S. DE. CHAUDHARI NOTIFED. ORDER TO GIVE IV DITALIZEM AND ZOFRAN GIVEN. TSB NOTIFIED THIS RN THAT THE PT IS HAVING CUPLET AND TRIPLET PVCS WELL. DR. CHAUDHARI NOTIFED AND TO COME TO SEE THE PT. EMESIS GREEN IN COLOR. OCCULT SAMPLE SENT TO LAB.
--- NOTE | 2023-01-16 18:00 | NUR ---
CONVERTED BACK TO SINUS PT CONVERTED BACK TO SINUS RHYTHM IN THE 90S AFTER 15 MG OF DILTIAZEM WAS ADMINISTERED BY CEMENT MIXER DRIVER. DR. CHAUDHARI NOTIFIED OF ORTHOSTATIC VITALS AFTER SEEING THE PT IN ROOM. UNABLE TO GET STANDING SET PT WAS TOO DIZZY.
[2023-01-16 19:04] LABS: Hematocrit 38.5 % (33.0-51.0); Hemoglobin 12.7 g/dL (11.5-16.0)
--- NOTE | 2023-01-16 20:18 | NUR ---
PERITONEAL DIALYSIS NOTE: Patient in Bed, alert and oriented x4. Dialysis cycler set-up using aseptic technique. Patient has no complaints of dyspnea or abdominal pain. BLE edema noted. Patient to run 4 hours with 2 exchanges 1600 ml and last fill of 200 ml. Dwell time 98 minutes. PD catheter changed with no signs and symptoms of infecton noted. Patient connected to cycler and treatment started and running without problems. Report given to SECOND MATE.
[2023-01-17 04:19] LABS: BASOPHILS ABSOLUTE AUTO 0.06 K/mm3 (0.00-0.23); BASOPHILS PERCENT AUTO 0 % (0-2); EOSINOPHILS ABSOLUTE AUTO 0.09 K/mm3 (0.00-0.68); EOSINOPHILS PERCENT AUTO 1 % (0-6); Hematocrit 36.3 % (33.0-51.0); Hemoglobin 11.9 g/dL (11.5-16.0); IMMATURE GRAN ABSOLUTE AUTO 0.12 K/mm3 (0.00-0.10); IMMATURE GRAN PERCENT AUTO 1 % (0-1); LYMPHOCYTES ABSOLUTE AUTO 2.29 K/mm3 (0.84-5.20); LYMPHOCYTES PERCENT AUTO 13 % (21-46); MONOCYTES ABSOLUTE AUTO 1.92 K/mm3 (0.16-1.47); MONOCYTES PERCENT AUTO 11 % (4-13); Mean Corpuscular HGB 29.5 pg (26.0-34.0); Mean Corpuscular HGB Conc 32.8 g/dL (31.5-36.5); Mean Corpuscular Volume 90 fL (80-100); Mean Platelet Volume 10.8 fL (9.1-12.4); NEUTROPHILS ABSOLUTE AUTO 12.73 K/mm3 (1.96-9.15); NEUTROPHILS PERCENT AUTO 74 % (41-73); NRBC ABSOLUTE 0.02 K/mm3 (0.00-0.02); NRBC Auto 0.1 /100 WBC (0.0-0.2); Platelet Count 384 K/mm3 (150-400); RDW Coefficient Variation 14.8 % (11.7-14.2); RDW Standard Deviation 48.1 fL (35.1-46.3); Red Blood Cell Count 4.03 M/mm3 (3.80-5.20); White Blood Cell Count 17.21 K/mm3 (4.00-11.30)
[2023-01-17 04:42] LABS: C-REACTIVE PROTEIN, EXT RANGE 17.6 mg/dL (0.000-0.300); Magnesium, Blood 1.6 mg/dL (1.6-2.4)
--- NOTE | 2023-01-17 06:33 | NUR ---
SHIFT SUMMARY A/OX3, GENERALIZED WEAKNESS, PT REPORTS VERTIGO WITH MOVEMENT. BEDPAN FOR TOILETING. PD COMPLETED THIS SHIFT. DENIES N/V AT THIS TIME. TELE SR IN THE 80S. BP CONTINUES TO BE SOFT WITH MAP >65. SPO2 >92% ON RA. BED IN LOWEST POSITION WITH CALL LIGHT IN REACH. WILL CONTINUE TO MONITOR AND REPORT TO ONCOMING RN.
[2023-01-17 06:46] LABS: Albumin, Blood 1.6 g/dL (3.4-5.0); Albumin/Globulin Ratio 0.5 (0.8-1.8); Bilirubin, Total 0.6 mg/dL (0.1-1.0); Bun/Creatinine Ratio 17.8 (12.0-20.0); Calcium, Blood 8.1 mg/dL (8.5-10.1); Creatinine, Blood 3.04 mg/dL (0.40-1.00); Globulin, Blood 3.4 g/dL (2.2-4.0); Phosphorus, Blood 3.9 mg/dL (2.5-4.9); Potassium, Blood 4.6 mmol/L (3.5-5.5)
[2023-01-17 08:47] LABS: Stool Occult Blood Guaiac 1 Pos (Neg)
--- NOTE | 2023-01-17 10:12 | NUR ---
DIALYSIS-PD PT SLEEPING, EASY TO WAKE UP. LEGS VERY SORE WHEN CHECKED FOR PITTING. UF 84 ML, ID [id number] ML. AVERAGE TIME 1 HOUR AND 35 MINS. SITE CLEAR. DC'ED TX PER PROTOCAL. OUTPUT VERY CLEAR. SITE CLEAR. TX COMPLETED PER ORDERS.
--- NOTE | 2023-01-17 16:33 | NUR ---
DIALYSIS-PD TETE SAMPLE FROM PD CATH FOR LAB. CELL CT, GRAM STAIN, AND C&S, THIS AM WHEN TX WAS COMPLETED THE FLUID WAS VERY CLEAR AND A MEDIUM YELLOW COLOR. WHEN I TETE THE SAMPLE AT 1600 IT WAS A YELLOW V[place]GAS COLOR. HER ABD IS QUITE TENDER BUT IT HAS BEEN SINCE ADMISSION. SAMPLE TAKEN TO THE LAB.
[2023-01-17 17:50] LABS: RBC Count, Body Fluid 81 /mm3 (0-0)
[2023-01-17 17:52] LABS: Appearance, Body Fluid Cloudy (Clear); Color, Body Fluid Yellow (None-Yellow)
[2023-01-17 17:57] LABS: Body Fluid WBC Count 25140 /mm3 (0-999)
[2023-01-17 18:10] LABS: Total Cell Count, Body Fluid 100
--- NOTE | 2023-01-17 18:28 | NUR ---
END OF SHIFT NOTE PT A&O X4. MONITOR SHOWING SR, HR 80s-90s. SPO2 > 92% ON RA. PT C/O 05/29 PAIN ACROSS UPPER ABD THAT PT REPORTING RADIATING UP INTO L CHEST, L SHOULDER & NECK @ ONE POINT TODAY. PT STATING "IT FEELS SORE." PAIN SLIGHTLY IMPROVED W/ TUMS & SIMETHICONE PER EMAR. PT REPORTING FEELING DIZZY WHILE LAYING IN BED. BP LOW, HOSPITALIST & SAS STATISTICAL PROGRAMMER AWARE. LACTIC ACID ELEVATED. PT GIVEN 1.5L TOTAL NS BOLUS PER MD ORDERS THIS SHIFT. PT NPO.
--- NOTE | 2023-01-17 21:03 | NUR ---
DIALYSIS- PD RN TO PT RM PCU14 AT APPROX 1930 TO PREPARE TO DO PD TX. 3 IN/OUT DRAINS WERE DONE WITH 700ML FILL VOLUME. AT 1950 INITIAL FILL STARTED. BACK TO PT RM AT APPROX 2030 TO SET UP PD TX. INITIAL DRAIN WAS 314 ML WITH A TOTAL UF OF 181ML FROM 3 IN/OUTS. INITIAL NIGHT PD TX INTIATED AT APPROX 2100.
--- NOTE | 2023-01-18 01:30 | NUR ---
UPDATE PT CONTINUES TO BE HYPOTENSIVE WITH MAP OF 56. STOPBOARD ASSEMBLER RESIDENT UPDATED ON CURRENT VITALS. NO NEW ORDERS AT THIS TIME. WILL CONTINUE TO MONITOR AND NOTIFY PROVIDER OF ANY CHANGES.
[2023-01-18 05:09] LABS: Albumin, Blood 1.2 g/dL (3.4-5.0); Anion Gap 7 mmol/L (6-16); Blood Urea Nitrogen 54 mg/dL (8-24); Bun/Creatinine Ratio 17.7 (12.0-20.0); CO2, Blood 24 mmol/L (21-32); Calcium, Blood 7.2 mg/dL (8.5-10.1); Chloride, Blood 109 mmol/L (98-108); Creatinine, Blood 3.05 mg/dL (0.40-1.00); Glomerular Filtration Rate 15 (60-); Glucose, Blood 129 mg/dL (70-99); Magnesium, Blood 1.6 mg/dL (1.6-2.4); Phosphorus, Blood 3.6 mg/dL (2.5-4.9); Potassium, Blood 4.1 mmol/L (3.5-5.5); Sodium, Blood 140 mmol/L (136-145)
[2023-01-18 05:15] LABS: BASOPHILS ABSOLUTE AUTO 0.02 K/mm3 (0.00-0.23); BASOPHILS PERCENT AUTO 0 % (0-2); EOSINOPHILS PERCENT AUTO 0 % (0-6); Hematocrit 25.7 % (33.0-51.0); Hemoglobin 8.7 g/dL (11.5-16.0); IMMATURE GRAN ABSOLUTE AUTO 0.09 K/mm3 (0.00-0.10); IMMATURE GRAN PERCENT AUTO 1 % (0-1); LYMPHOCYTES ABSOLUTE AUTO 0.86 K/mm3 (0.84-5.20); LYMPHOCYTES PERCENT AUTO 9 % (21-46); MONOCYTES ABSOLUTE AUTO 0.82 K/mm3 (0.16-1.47); MONOCYTES PERCENT AUTO 8 % (4-13); Mean Corpuscular HGB 30.5 pg (26.0-34.0); Mean Corpuscular HGB Conc 33.9 g/dL (31.5-36.5); Mean Corpuscular Volume 90 fL (80-100); Mean Platelet Volume 10.4 fL (9.1-12.4); NEUTROPHILS ABSOLUTE AUTO 7.96 K/mm3 (1.96-9.15); NEUTROPHILS PERCENT AUTO 82 % (41-73); Platelet Count 282 K/mm3 (150-400); RDW Coefficient Variation 14.6 % (11.7-14.2); RDW Standard Deviation 48.2 fL (35.1-46.3); Red Blood Cell Count 2.85 M/mm3 (3.80-5.20); White Blood Cell Count 9.75 K/mm3 (4.00-11.30)
--- NOTE | 2023-01-18 05:25 | NUR ---
SHIFT SUMMARY A/OX4, GENERALIZED WEAKNESS, PT REPORTS VERTIGO WITH MOVEMENT. BEDPAN FOR TOILETING. PD COMPLETED THIS SHIFT. DENIES N/V AT THIS TIME. TELE SR IN THE 70S. PT CONTINUES TO BE HYPOTENSIVE, CURRENT MAP OF 65. PG TO UBALDO, NS AT 75 ML/HR. SPO2 >92% ON RA. BED IN LOWEST POSITION WITH CALL LIGHT IN REACH. WILL CONTINUE TO MONITOR AND REPORT TO ONCOMING RN.
--- NOTE | 2023-01-18 07:30 | NUR ---
DIALYSIS-PD PT SLEEPING SOUNDLY WHEN I WALKED. DC'ED TX PER PROTOCAL AT 0645. UF 0. ID [id number] ML. INSERTED ANTIBIOTICS (ANCEF, FORTAZ) PER PROTCAL. PT HAVING SOME ABD DISCOMFORT. GOT A WARM BLANKET AND LAID OVER ABD.
[2023-01-18 08:37] LABS: Vancomycin, Random 11.5 ug/mL
[2023-01-18 11:40] LABS: Automated BF RBC Count 0.002 M/mm3 (0-0)
[2023-01-18 11:59] LABS: RBC Count, Body Fluid 2000 /mm3 (0-0)
[2023-01-18 12:01] LABS: Body Fluid WBC Count 32390 /mm3 (0-999)
--- NOTE | 2023-01-18 12:05 | NUR ---
DIALYSIS PD TOOK A SAMPLE PER PROTOCAL FROM PT'S PD CATH FOR GRAM STAIN, CELL CT AND C&S. DELIVERED TI THE LAB.
[2023-01-18 12:35] LABS: Color, Body Fluid Yellow (None-Yellow); Total Cell Count, Body Fluid 100
[2023-01-18 12:36] LABS: Appearance, Body Fluid Cloudy (Clear)
--- NOTE | 2023-01-18 18:52 | NUR ---
END OF SHIFT NOTE PT A&O X4. MONITOR SHOWING SR, HR 80s. BP LOW, BUT IMPROVING. OTHERWISE VSS. SPO2 > 92% ON RA. PT REPORTING ABD PAIN IMPROVING WELL.
--- NOTE | 2023-01-18 19:14 | NUR ---
PD RN TO PT PCU AT APPROX 18:45 TO SET UP PD TX MACHINE. PT WAS SPEAKING WITH AT BED SIDE. 2.E DEB 2.5% DEXTROSE DINEAL 6000ML BAG WAS PREFILLED WITH HEPARIN 1000 UNITS/ML FOR A TOTAL OF 6000 UNITS HEPARIN ADDED BY PHARMACY. TX PERSCRIPRTION ORDERS ARE 2 EXCHANGES WITH A FILL VOLUME OF 1600 AND A DWELL TIME OF 98 (1.38). LAST FILL IS 200, FOR A TOTAL VOLUME OF 3200. PT IS ALERT AND TALKATIVE. IN MIDDLE OF CONVERSATION WITH PD RN SHE PAUSES EVERY 5-10 MINUTES TAKES A BREATHE A SAYS "OUCH", DUE TO CRAMPING BEFORE BEING CONNECTED TO PD DIALYSIS [facility]. TX INITIATED AT 1924.
--- NOTE | 2023-01-18 20:33 | NUR ---
CP PT C/O SEVERE CP/PRESSURE, SOB, L SHOULDER PAIN. EKG PERFORMED. V2 SHOWS ELEVATION. DR CHAUDHARI TO ROOM 2030, NITRO X2 ADMINISTERED WITH RELIEVING CHEST PAIN. BP STABLE AT THIS TIME. AWAITING CONTINUED ORDERS.
[2023-01-18 21:56] LABS: Creatine Kinase MB 2.9 ng/mL (0.0-3.6); Creatine Kinase MB Index 5.5 (0.0-4.0)
[2023-01-19 03:01] LABS: Hematocrit 23.8 % (33.0-51.0); Hemoglobin 8.1 g/dL (11.5-16.0)
[2023-01-19 03:22] LABS: Albumin, Blood 1.2 g/dL (3.4-5.0); Anion Gap 5 mmol/L (6-16); Blood Urea Nitrogen 55 mg/dL (8-24); Bun/Creatinine Ratio 18.3 (12.0-20.0); CO2, Blood 24 mmol/L (21-32); Calcium, Blood 7.2 mg/dL (8.5-10.1); Chloride, Blood 111 mmol/L (98-108); Ferritin, Serum 561 ng/mL (8-252); Glomerular Filtration Rate 16 (60-); Glucose, Blood 99 mg/dL (70-99); Iron Serum 18 ug/dL (50-170); Magnesium, Blood 1.6 mg/dL (1.6-2.4); Percent Saturation 15.7 % (15.0-50.0); Phosphorus, Blood 3.9 mg/dL (2.5-4.9); Sodium, Blood 140 mmol/L (136-145); Total Iron Binding Capacity 115 ug/dL (250-450); Vancomycin, Random 21.4 ug/mL
--- NOTE | 2023-01-19 05:06 | NUR ---
SHIFT SUMMARY PT HAD ONE CARDIAC EVENT THIS SHIFT, SEE CHARGE NURSE SUZAN'S NOTE FOR MORE INFORMAITON. SINCE THE PT WAS MEDICATER W/ 15MG TORADOL AND 2 NITRO'S SHE HAS BEEN ABLE TO REST. HER BP'S HAVE BEEN SOFT AND SHE WAS GIVEN 2.5MG MIDODIRNE SOR MAP <55. DR. MCCONNELL HAS BEEN NOTIFIED OF THE PT'S BP AND THAT HER KVO IS AT 50ML/HR. SHE HAS BEEN SR 70'S-90'S ON TELE, AND RA-2L NC T/O THE SHIFT FOR COMFORT AND TO MAINTAIN SP02>90%. PT IS RESTING IN THE ROOM, BED IN LOW, CALL LIGHT IN REACH, AND THREE SIDE RAILS ARE UP. WILL CONTINUE TO MONITOR UNTIL SHIFT REPORT IS GIVEN TO THE ONCOMING SHIFT RN. SEE NOTES FOR ANY UPDATES.
--- NOTE | 2023-01-19 09:05 | NUR ---
RN TO PT RM PCU 14 AT APPROX 0800 TO DISCONNECT PT NIGHT PD TREATMENT. PT WAS SITTING UP IN BED EATTING BREAKFAST WHEN WE ENTERED THE RM. EFFLUENT COLLECTION FLUID WAS YELLOW, CLOUDY, AND STRINGY. A FLUID EFFLUENT SAMPLE BAG WAS FILLED WITH PEROTONEAL FLUID FOR A CELL AND GRAM STAIN LAB CULTURE. AFTER SAMPLE WAS COLLECTED AN ANTIBIOTIC ADMINISTARTION WAS PLACED INTO THE PEROTONEAL CAVITY.
[2023-01-19 09:20] LABS: Automated BF RBC Count 0.003 M/mm3 (0-0)
[2023-01-19 09:41] LABS: RBC Count, Body Fluid 3000 /mm3 (0-0)
[2023-01-19 09:42] LABS: Appearance, Body Fluid Cloudy (Clear); Color, Body Fluid L Yellow (None-Yellow)
[2023-01-19 09:43] LABS: Automated BF WBC Count 46.765 K/mm3 (0-999); Body Fluid WBC Count 46765 /mm3 (0-999)
[2023-01-19 09:48] LABS: Total Cell Count, Body Fluid 100
--- NOTE | 2023-01-19 18:09 | NUR ---
END OF SHIFT NOTE PT A&O X4. BP SOFT. PT NOW TAKING SCHEDULED PO MIDODRINE W/ NOTED IMPROVEMENT. PT REPORTING DIZZINESS W/ GETTING UP, THEN REPORTS IMPROVEMENT IN SYMPTOMS. PT ABLE TO WEAKLY STAND & TAKE STEPS FROM BED TO CHAIR OR BSC W/ 1 PERSON ASSIST W/ GB. PT VSS. SPO2 > 92% ON RA. MONITOR SHOWING SR, HR 70s-80s. PT REPORTING IMPROVEMENT IN ABD PAIN & OVERALL FEELINGS OF WELLNESS. PT SITTING UP LAUGHING & JOKING W/ FAMILY MEMBERS & STAFF AT BEDSIDE. PT DENYING CHEST PAIN OR DISCOMFORT.
--- NOTE | 2023-01-19 21:11 | NUR ---
PERITONEAL DIALYSIS NOTE: Patient in Bed, alert and oriented. Dialysis cyler set-up per orders using aseptic technique. Patient has no complain of dyspnea or abdominal pain. In and out flush completed then set-up to order PD therapy treatment. PD dressing changed with no signs or symptoms of infection noted to exit site. Patient connected to cycler and treament running without problems. SBAR report given to FRAME GATE MORTISER OPERATOR.
[2023-01-19 21:31] LABS: Creatine Kinase MB 4.6 ng/mL (0.0-3.6); Creatine Kinase MB Index 7.4 (0.0-4.0)
[2023-01-19 23:35] LABS: Source, Urine Clean Catch
[2023-01-20 00:17] LABS: Bilirubin, Urine Neg (Neg); Blood, Urine 1+ (Neg); Glucose Qualitative, Urine Neg (Neg); Ketones, Urine Neg (Neg); Leukocyte Esterase, Urine 2+ (Neg); Nitrite, Urine Neg (Neg); Protein, Urine 2+ (Neg); Specific Gravity, Urine 1.015 (1.003-1.022); Urobilinogen, Urine NORM (Normal)
[2023-01-20 00:35] LABS: Color, Urine Yellow (P-Yellow)
[2023-01-20 00:36] LABS: Appearance, Urine Hazy (Clear)
[2023-01-20 00:38] LABS: Bacteria Mod /hpf; Red Blood Cells, Urine 0-2 /hpf (0-2); Squamous Epithelial Cells Mod /hpf (Few); White Blood Cells, Urine 25-50 /hpf (0-5)
[2023-01-20 04:33] LABS: Hematocrit 25.2 % (33.0-51.0); Hemoglobin 8.2 g/dL (11.5-16.0); Mean Corpuscular HGB 29.5 pg (26.0-34.0); Mean Corpuscular HGB Conc 32.5 g/dL (31.5-36.5); Mean Corpuscular Volume 91 fL (80-100); Platelet Count 296 K/mm3 (150-400); RDW Coefficient Variation 14.6 % (11.7-14.2); RDW Standard Deviation 48.6 fL (35.1-46.3); Red Blood Cell Count 2.78 M/mm3 (3.80-5.20); White Blood Cell Count 6.87 K/mm3 (4.00-11.30)
[2023-01-20 05:00] LABS: Albumin, Blood 1.2 g/dL (3.4-5.0); Anion Gap 4 mmol/L (6-16); Blood Urea Nitrogen 50 mg/dL (8-24); Bun/Creatinine Ratio 16.6 (12.0-20.0); CO2, Blood 26 mmol/L (21-32); Calcium, Blood 7.7 mg/dL (8.5-10.1); Chloride, Blood 111 mmol/L (98-108); Creatinine, Blood 3.01 mg/dL (0.40-1.00); Glomerular Filtration Rate 16 (60-); Glucose, Blood 103 mg/dL (70-99); Magnesium, Blood 1.8 mg/dL (1.6-2.4); Phosphorus, Blood 3.1 mg/dL (2.5-4.9); Potassium, Blood 3.5 mmol/L (3.5-5.5); Sodium, Blood 141 mmol/L (136-145); Vancomycin, Random 17.4 ug/mL
[2023-01-20 05:15] LABS: Creatine Kinase MB Index 7.8 (0.0-4.0)
--- NOTE | 2023-01-20 05:59 | NUR ---
SHIFT SUMMARY PT A&OX4, MOVES IND IN BED, 1P SBA TO THE BS, SR 70'S-80'S ON TELE, SP02>90% RA, AND BP'S HAVE BEEN SOFT BUT STABLE. PT SLEPT MOST OF THE NIGHT AND RECIEVED HER PD. SHE HAD NO EVENTS AND DENIES ANY ANGINA, N/V/D, SOB, AND N/T. BED IS IN LOW, CALL LIGHT IS IN REACH. WILL CONTINUE TO MONITOR UNTIL SHIFT REPORT IS GIVEN TO THE ONCOMING SHIFT RN. SEE NOTES FOR ANY UPDATES.
--- NOTE | 2023-01-20 09:21 | NUR ---
DIALYSIS-PD ID [id number] ML. 105 ML UF. DC'ED TX PER PROTOCAL. PT C/O NOT FEELING WELL. LEATHER PRODUCTION MACHINE OPERATOR NOTIFIED. FLUID CLOUDY. ANTIBIOTICS INSTILLED IN PT PER PROTOCAL. DR DUMONT IN ROOM SEEING PT. AT THE END OF TX CELL CT WAS COLLECTED AND CARRIED TO THE LAB.
--- NOTE | 2023-01-20 09:36 | NUR ---
DIALYSOS-PD LATE ENTRY CALLED AT MIDNIGHT FOR PD MACHINE ALARMS. FIXED IT, RESUMED TX. PT EASILY WAKEN UP. SHE LOOKS IMPROVED,
[2023-01-20 09:54] LABS: Automated BF RBC Count 0.002 M/mm3 (0-0)
[2023-01-20 10:21] LABS: RBC Count, Body Fluid 2000 /mm3 (0-0)
[2023-01-20 10:22] LABS: Appearance, Body Fluid Cloudy (Clear); Body Fluid WBC Count 35890 /mm3 (0-999); Color, Body Fluid L Yellow (None-Yellow)
[2023-01-20 11:08] LABS: Total Cell Count, Body Fluid 100
--- NOTE | 2023-01-20 18:11 | NUR ---
SHIFT SUMMARY PT HAS BEEN DIZZY AND LETHARGIC MOST OF THE DAY REFUSING TO GET UP WITH PT, OR EAT, OR TRY TO SIT AT THE SIDE OF THE BED. sHE WAS REFUSING TO DRINK BECAUSE "i DON'T WANT TO PEE ALL DAY" SOME TEACHING PROVIDED TO PT AND FAMILY ONTHE IMPOTANCE OF CONTINUEING TO BE UP AND MOVING, EATING AND DRINKING TO IMPROVE. PT AGREED SHE WOULD TRY HARDER. BP STILL REMAINS SOFT. RESPONDING WELL TO INCREASED MIDODRINE. WILL CONTINUE TO ENCOURAGE SELF MOTIVATION. PT IS ALSO MEDICAL STATUS, WAITING ON AN AVAILABLE ROOM. BED IN LOWEST POSITION AND CALL LIGHT IN REACH.
--- NOTE | 2023-01-20 19:43 | NUR ---
pd rn to pt rm pcu14 at approx 1920 to start pd lollypop machine operator. pt states ot feeling well, feeling wiped out. she appears to have less energy than days previous. she is alert and oriented to person, time, place and situation. set up machine to do initial drain and to do 3 in and out flushes of 700ml each. tx started per md order. pt tolerating well.
--- NOTE | 2023-01-20 22:05 | NUR ---
flush completed, pt tolerated well. discontinued per md orders.
--- NOTE | 2023-01-20 22:09 | NUR ---
PD PT ROOM PCU14, PT IS ALERT AND ORIENTED, STATES SHE DOES NOT "FEEL WELL". DENIES PAIN. CATH SITE IS CLEAN AND CLEAR. PD STARTED PER MD ORDERS. REPORT TO LYUBOV LOCKWOOD.
--- NOTE | 2023-01-21 00:19 | NUR ---
CALLED DR. Workman PT WAS FOUND SITTING ON THE SIDE OF HER BED AND HAD AN EXTRA LARGE WATERY GREEN BOWEL MOVEMENT. SHE WAS TRANSFERED TO THE C, AND SHE CONTINUED TO GO. PT STARTED C/O NAUSEA, FEELING VERY LIGHT HEADED, FEELING LIKE SHE WAS GOING TO PASS OUT, AND HAVING 10/10 ABDOMINAL PAIN. THE EVENT PROGRESSED HER SPEECH GOT MORE SLOWED AND SLURRED. VS STABLE. SHE WAS PUT BACK TO BED AND IS BEING CLEANED UP BY THE MACHINE GROUP LEADER'S. PT WAS MEDICATED W/ ZOFRAN FOR NAUSEA AND DR. Workman WAS CALLED ABOUT THE CHANGE IN NUERO AND EVENTS. DR. Workman WANTS TO CONTINUE TO MONITOR THE PT AT THIS TIME, AND DID NOT PROVIDE ANY ADDITIONAL ORDERES. FENTYNAL WAS HELD DUE TO PT NOT STAYING ALERT AND DR. Workman AWARE. BED ALARM ON, BED IN LOW, CALL LIGHT IN REACH. SEE NOTES FOR ANY UPDATES.
[2023-01-21 04:29] LABS: Hematocrit 28.5 % (33.0-51.0); Hemoglobin 9.4 g/dL (11.5-16.0)
[2023-01-21 04:48] LABS: Albumin, Blood 1.1 g/dL (3.4-5.0); Anion Gap 6 mmol/L (6-16); Blood Urea Nitrogen 44 mg/dL (8-24); Bun/Creatinine Ratio 15.5 (12.0-20.0); CO2, Blood 25 mmol/L (21-32); Calcium, Blood 7.6 mg/dL (8.5-10.1); Chloride, Blood 109 mmol/L (98-108); Creatinine, Blood 2.83 mg/dL (0.40-1.00); Glomerular Filtration Rate 17 (60-); Glucose, Blood 153 mg/dL (70-99); Magnesium, Blood 1.6 mg/dL (1.6-2.4); Phosphorus, Blood 2.6 mg/dL (2.5-4.9); Potassium, Blood 3.1 mmol/L (3.5-5.5); Sodium, Blood 140 mmol/L (136-145)
--- NOTE | 2023-01-21 05:19 | NUR ---
SHIFT SUMMARY AND PREVIOUS NOTE UPDATE PT IS A&OX3, VERY DROWSY AND HAVING SLOWED/SLURRED SPEECH. SHE RESPONDS TO VERBAL STIMULI BUT NOT ALWAYS W/ APPROPRIATE RESPONSES. SHE MOANS ALOT AND RESPONDS WITH 1-[address] Workman WAS CALLED ABOUT THE PT'S PAIN AND NUERO CHANGE, SEE PREVIOUS NOTE FOR MORE INFORMATION. ONCE THE PT WAS ABLE TO ALLOW A FULL NUERO EXAM AND START STAYING ALERT IN A CONVERSATION, SHE WAS MEDICATED PER EMAR. PT HAS BEEN ON AND OFF ASLEEP SINCE MEDICATED BUT WHEN SHE IS AWAKE SHE IS MOANING. REPOSITIONING HAS OCCURED, WARM BLANKETS WERE PLACED OVER THE PT'S STOAMCH FOR COMFORT, AND SHE WAS MEDICATED. SHE WAS MEDICATED W/ ZOFRAN ONCE AND IT HELPED WITH HER NAUSEA. PT IS FEELING VERY DECONDITIONED AND EMOTIONAL THIS SHIFT. SEE NOTES FOR ANY UPDATES.
--- NOTE | 2023-01-21 08:40 | NUR ---
PHONE CALL TO DR. CARIAS TO REPORT STATUS CHANGE IN PT'S MENTATION, PT IS NOT ABLE TO ANSWER QUESTIONS REGARDING WHERE SHE IS OR WHO SHE IS. PT IS DIFFICULT TO AROUSE, AND REPEATS "OK" ONLY TO ALL QUESTIONS. PT IS UNABLE TO TAKE A SIP OF WATER THROUGH A STRAW, SHE CONTINUES TO FALL ASLEEP UNLESS AROUSED BY TOUCH. UNABLE TO TOLERATE PO MEDICATION AT THIS TIME DUE TO LETHARGY. BP MAP IS 65, SPO2 100% ON 2L NC. DR. CARIAS STATES SHE WILL ROUND ON THE PT
--- NOTE | 2023-01-21 09:20 | NUR ---
TO PCU 14 for tx dc, hospitalist at bedside. pt is very somnolent this am and is not really communicating with staff. abd is very tender, cath site is clear and wnl. effluent sample taken from pd cath. abx infused without difficulty. dr lipscomb aware of changes in pt status. will continue to observe. randal
[2023-01-21 11:30] LABS: Color, Body Fluid No color (None-Yellow); RBC Count, Body Fluid 41 /mm3 (0-0)
[2023-01-21 11:31] LABS: Appearance, Body Fluid Cloudy (Clear); Body Fluid WBC Count 27350 /mm3 (0-999)
[2023-01-21 11:47] LABS: Total Cell Count, Body Fluid 100
--- NOTE | 2023-01-21 16:52 | NUR ---
PHONE CALL TO DR. JERRY - PALLIATIVE CARE CONSULT PLACED. PT IS REFUSING TO SWALLOW MEDICATIONS, DESPITE ATTEMPTS FROM FAMILY PEDIATRICIAN. DR. JERRY STATED WE NEED TO PLACE AN NG TUBE TO ADMINISTER MEDICATIONS OR PLACE A PALLIATIVE CARE CONSULT TO DISCUSS GOALS OF TREATMENT/CODE STATUS. RN EDUCATED FAMILY AND DISCUSSED WITH CHARGE NURSE.
--- NOTE | 2023-01-21 18:58 | NUR ---
DR. CARIAS AT BEDSIDE, PLACED NG TUBE AND VERIFIED PLACEMENT WITH AUSCULTATION. VERBAL ORDER FOR STAT XRAY TO VERIFY PLACEMENT.
--- NOTE | 2023-01-21 18:58 | NUR ---
CASE CONF WITH RN, PT WITH INCREASED DEC LOC T/O THE DAY. PT SOMULENT, WILL OPEN EYES TO VOICE, DOES NOT FOLLOW COMMANDS, HYPERSENSITIVE TO TOUCH AND SPITTING OUT ALL ORAL MEDICATIONS. FAMILY HAS LEFT FOR THE DAY. DR CARIAS AT THE BEDSIDE, ATTEMPTED TO GIVE PO MEDS, PT WILL NOT FOLLOW COMMANDS, SO NG TUBE WAS PLACED. PLAN TO FOLLOW UP WITH FAMILY TOMORROW, PALLIATIVE CARE WILL CONT TO FOLLOW.
--- NOTE | 2023-01-21 19:23 | NUR ---
SHIFT SUMMARY PT IS ALERT TO SELF ONLY. REFUSING MEDICATIONS, AND OTHER PO INTAKE. FAMILY AT BEDSIDE. PT DENIES PAIN WHEN ASKED, BUT WILL MOAN AND YELL OUT WHEN HER ABD IS PALPATED. PT ALSO TENDER ALL OVER HER BODY, MOANING WITH TURNING IN BED FOR ATTENDS CHANGE. AT THIS TIME, PT IS INCONTINENT IN ATTENDS. RECEIVING PERITONEAL DIALYSIS. NG TUBE PLACED PER DR. JERRY TELEPHONE ORDER. DR. BOB AND DR. MATOS ALSO AWARE OF PT'S CHANGE IN MENTATION. PT IN SOFT WRIST RESTRAINTS BILAT DUE TO PULLING AT LINES/TUBING. POWERGLIDE TO UBALDO. ROOM AIR. DOES NOT CALL APPROPRIATELY, IS ON REMOTE MONITORING. SINUS RHYTHYM IN THE 60'S. MAINTAINED MAP GREATER THAN 60 THROUGH OUT THE SHIFT.
--- NOTE | 2023-01-21 20:00 | NUR ---
ASSUMED CARE OF PT AT 1915. REPORT RECEIVED AT BEDSIDE. PT PRESENTS IN BED. WILL OPEN EYES TO CONTACT, BUT WILL NOT FOLLOW DIRECTIONS. PRESENTS VERY EASILY STARTLED. FEARFUL AFFECT. NEEDS A LOT OF REASSURANCE. NGT IN PLACE. CHEST XRAY TO CONFIRM PLACEMENT. WILL REVIEW CHART AND PLAN OF CARE FOR THIS PT.
--- NOTE | 2023-01-21 20:06 | NUR ---
TO PCU 14 FOR EVENING PD AND CATH FLUSH. PT LYING IN BED WITH EYES CLOSED. PT IS IN WRIST RESTRAINTS AND HAS AN NG TUBE. VSS. PT REMAINS SOMNOLENT AND DOES NOT COMMUNICATE OTHER THAN TO VERBALIZE FEAR OR PAIN. PD CATH SITE CLEAR. CATHETER ACCESSED FOR FLUSH AND DRAIN WITH 1.5% DIANAL. MANUAL FLUSH AND DRAIN STARTED, PT TOLERATED WELL. ABD REMAINS TENDER. CONTINUE PER MD ORDERS. KATHERINE
--- NOTE | 2023-01-21 20:33 | NUR ---
PERITONEAL DIALYSIS NOTE: PATIENT IN BED, SOMNOLENT. TIME OUT COMPLETED AT 2009. RIGHT PATIENT, RIGHT PROCEDURE. DIALYSIS CYCLER SET UP PER ORDERS USING ASEPTIC TECHNIQUE. BLE TRACE EDEMA NOTED. PATIENT TO RUN 4 HOURS,2 EXCHANGES OF 1600ML AND LAST FILL OF 200ML. DWELL TIME 98 MINUTES. PD CATHETER DRESSING CLEAN, DRY AND INTACT. PATIENT CONNECTED TO CYCLER AND TREATMENT STARTED AND RUNNING WITHOUT PROBLEMS. REPORT GIVEN TO APPAREL MANUFACTURE INSTRUCTOR.
--- NOTE | 2023-01-22 | NUR ---
DID SPEAK WITH DR CARIAS EARLIER THIS EVENING. PLAN DISCUSSED. PT HAS RECEIVED HER PLAVIX, MIDODRINE, AND ASPIRIN PER PT. ORDERS UPDATED TO REFLECT MEDS TO BE DONE PER TUBE. DID ADMINISTER TYLENOL PER NGT. PT DEMONSTRATES DISCOMFORT IN HER ABDOMEN. HAD PREVIOUSLY PLACED NGT TO LIWS TO ASSESS GAS OR FLUID RETENTION. NO RETURN NOTED. NGT CURRENTLY CLAMPED. PT RESTING. SOFT WRIST RESTRAINTS REMAINS IN USE TO PROTECT NGT AND VITAL LINES.
[2023-01-22 04:52] LABS: Hematocrit 25.9 % (33.0-51.0); Hemoglobin 8.5 g/dL (11.5-16.0); Mean Corpuscular HGB 29.3 pg (26.0-34.0); Mean Corpuscular HGB Conc 32.8 g/dL (31.5-36.5); Mean Corpuscular Volume 89 fL (80-100); Mean Platelet Volume 10.5 fL (9.1-12.4); NRBC ABSOLUTE 0.03 K/mm3 (0.00-0.02); NRBC Auto 0.3 /100 WBC (0.0-0.2); Platelet Count 298 K/mm3 (150-400); RDW Coefficient Variation 14.6 % (11.7-14.2); RDW Standard Deviation 47.7 fL (35.1-46.3); White Blood Cell Count 8.62 K/mm3 (4.00-11.30)
[2023-01-22 05:14] LABS: Albumin, Blood 0.8 g/dL (3.4-5.0); Anion Gap 5 mmol/L (6-16); Blood Urea Nitrogen 40 mg/dL (8-24); Bun/Creatinine Ratio 14.4 (12.0-20.0); CO2, Blood 24 mmol/L (21-32); Calcium, Blood 7.5 mg/dL (8.5-10.1); Chloride, Blood 112 mmol/L (98-108); Creatinine, Blood 2.78 mg/dL (0.40-1.00); Glomerular Filtration Rate 17 (60-); Glucose, Blood 104 mg/dL (70-99); Magnesium, Blood 1.6 mg/dL (1.6-2.4); Phosphorus, Blood 2.4 mg/dL (2.5-4.9); Potassium, Blood 2.8 mmol/L (3.5-5.5); Sodium, Blood 141 mmol/L (136-145)
--- NOTE | 2023-01-22 06:50 | NUR ---
PT REMAINS IN BED. HAS BEEN EASILY STARTLED WITH ANY TACTILE STIMULI. PT COMPLETED HER PERITONEAL DIALYSIS WITHOUT ISSUES. PT HAS BEEN ABLE TO REST MOST OF THE NIGHT, HAS TOLERATED TURNS IN BED. GOOD RESULTS NOTED FROM TYLENOL THAT WAS GIVEN. NO FURTHER MOANING NOTED. NO BM'S AND HAS NOT VOIDED THIS NIGHT. WILL CONTINUE TO MONITOR PT, AND WILL REPORT OFF TO ONCOMING RN.
[2023-01-22 09:02] LABS: Vancomycin, Trough 16.5 ug/mL (5.0-10.0)
[2023-01-22 09:57] LABS: Appearance, Body Fluid Hazy (Clear); Color, Body Fluid No color (None-Yellow)
[2023-01-22 09:58] LABS: Body Fluid WBC Count 15420 /mm3 (0-999)
--- NOTE | 2023-01-22 10:24 | NUR ---
TO PCU 14 FOR PD DC PER MD ORDERS. PT CONTINUES TO BE SOMNOLENT AND AFRAID. EASILY STARTLED. CONTINUES WITH SOFT RESTRAINTS. NG TUBE IN PLACE. VSS. ABDOMEN IN TENDER TO PALPATION. PD DC'D UNDER STERILE TECHNIQUE. STERILE EFFLUENT SAMPLE OBTAINED. FLUID IS THICK AND YELLOW, NO CLARITY. PT TOLERATED WELL. CATH CLAMPED OFF. NEW ORDERS RECEIVED FROM DR MATOS, ABX CHANGED. WILL WAIT TO INFUSE NEW ABX AT 1300 DUE TO VANCO LEVELS. WILL DWELL FOR 6 HOURS AND THEN FLUSH AT APPROX 1900 BEFORE EVENING PD PER PHARMACIST RECOMMENDATION. PT LEFT IN STABLE CONDITION. KATHERINE
--- NOTE | 2023-01-22 10:27 | NUR ---
AM NOTE: PATIENT OPENING EYES TO SOUND/TOUCH. NOT TALKING OR FOLLOWING SIMPLE COMMANDS. PERRLA. SEEMS TO BE VERY FEARFUL AND ANXIOUS WHEN STAFF ARE PRESENT IN ROOM PROVIDING CARE. ABLE TO CALM AND REASSURE SOMEWHAT WITH TALKING. BILATERAL WRIST RESTRAINTS PRESENT TO PROTECT LINES/TUBES. PATIENT TRYING TO [employer] AND HIT AT STAFF DURING BED BATH THIS MORNING. NOT RESPONDING WHEN ASKED QUESTIONS BUT PATIENT STATED THE WORD "STOP" DURING BED BATH. OVERALL WEAK. BEDREST AT THIS TIME. WITH Q2 TURNING. ORAL CARE ATTEMPTS MADE THIS MORNING BUT PATIENT THRASHING HEAD BACK AND FORTH AND UNABLE TO CLEAN MOUTH. ON ROOM AIR SATING 98-100%. LUNGS SOUNDING CLEAR AND DIM IN BASES. TELE SHOWING SR WITH HR 60-80'S. BP ON SOFTER SIDE. PPP. SOME EDEMA NOTED TO BILATERAL ARMS. HEPARIN GIVEN SC. PATIENT NOT ABLE TO EAT SAFELY AT THIS TIME. DR. MATOS ASKED THIS RN TO PLACE TAKER OFF CONSULT THIS AM TO START EITHER TPN OR CLINIMIX TODAY. CONSULT IN PLACE. NG TUBE IN PLACE AND SECURED. MORN MEDS GIVEN PER TUBE. ANTIFUNGAL INFUSED AND POTASSIUM INFUSING AT THIS TIME. RESIDENTIAL SUBCONTRACTOR IN TO UNHOOK PATIENT THIS AM. DIALYSIS PERITONEAL CATH IN PLACE TO RLQ. PATIENT SEEMS TO BE IN PAIN DURING BED BATH, BUT NOT RESPONDING WHEN ASKING ABOUT PAIN. TYLENOL GIVEN PER EMAR AND PATIENT RESTING AT THIS TIME. BOWEL TONES PRESENT. ATTENDS IN PLACE. SPOKE WITH YAN HERRERA ON PHONE THIS AM AND PROVIDED UPDATED. SHARON ASKED IF PATIENT COULD HAVE HER BLOOD GAS DRAWN, SHE WAS CONCERNED ABOUT METABOLIC ACIDOSIS. THIS RN TO RELAY MESSAGE TO DR. ELIZABETH UPON ROUNDING.
[2023-01-22 11:00] LABS: RBC Count, Body Fluid 105 /mm3 (0-0)
[2023-01-22 11:51] LABS: Total Cell Count, Body Fluid 100
--- NOTE | 2023-01-22 12:55 | NUR ---
DR. ELIZABETH BY TO SEE PATIENT. PLAN FOR HEAD CT AND SURG CONSULT TO REMOVE PERITONEAL DIALYSIS CATH AND PLACE HD PERMACATH. DR. BROOKS CALLED AND CONSULTED BY THIS RN. NO IMMEDIATE PLANS TO REMOVE PERITONEAL DIALYSIS CATH TODAY. PLAN FOR DIVISION ROAD SUPERVISOR TO INFUSE ABX THROUGH PERITONEAL DIALYSIS PORT THIS AFTERNOON. THIS RN CALLED DR. MATOS AND ORDERS FOR CLINIMIX TO START AT 50 ML/HR. DR. ELIZABETH ABLE TO CALL YAN ROSARIO AND PROVIDE UPDATE. FAMILY AT BEDSIDE AND UPDATED BY THIS RN. FAMILY INTERESTED IN SPEAKING WITH PALLIATIVE CARE RNADITHYA CALLED AND UPDATE. PLAN TO MEET WITH FAMILY THIS AFTERNOON.
--- NOTE | 2023-01-22 14:32 | NUR ---
PD NOTE; TO PCU 14 FOR ABX INFUSION PER PD CATHETER. FAMILY AT BEDSIDE, PT CONTINUES SOMNOLENT AND CONFUSED. REMAINS IN SOFT RESTRAINTS FOR PT SAFETY. PROCEDURE EXPLAINED TO FAMILY. PALLIATIVE CARE IN TO SPEAK WITH FAMILY REGARDING SURGICAL CONSULT WITH DR BROOKS AND POSSIBLE REMOVAL OF PD CATHETER PER DR ELIZABETH/CARLO REQUEST. PD CATH SITE IS CLEAN AND WITHOUT REDNESS OR DRAINAGE. SITE PREPPED AND CATH CLEANED USING ASEPTIC TECHNIQUE. VANCOMYCIN 25MG/KG AND GENTAMYCIN 0.6MG/KG INFUSED WITHOUT DIFFICULTY. PT TOLERATED WELL. WILL RETURN THIS EVENING FOR FURTHER PD INTERVENTIONS. PT LEFT IN STABLE CONDITION. KATHEIRNE
--- NOTE | 2023-01-22 15:22 | NUR ---
CASE CONF WITH DR ELIZABETH, PT WITH SIGNIFICANT DECLINE SINCE YESTERDAY, POTENTIALLY NEED TO HAVE DIALYSIS CATHETER REMOVED R/T INFECTION. PT ALTERED, UNABLE TO FOLLOW COMMANDS. THERE ARE CONCERNS ABOUT THE RISK OF PT WITH ANESTHESIA. PT IS CURRENTLY A FULL CODE. MET WITH FAMILY INCLUDING PT , ARNAUD. PROVIDED EDUCATION AND ANSWERED QUESTIONS THAT FAMILY HAD. INITIALLY, ARNAUD REPORTED THAT HE WANTS TO HAVE THE CATHETER REMOVED AND EVERYTHING TO BE DONE FOR HIS INCLUDING STAYING A FULL CODE. WITH FURTHER DISCUSSION, FAMILY HAD MORE QUESTIONS AND CONCERNS ON WHAT DIRECTION TO JOSHUA ITH TREATMENT AND DID NOT WANT TO FILL OUT THE POLST UNTIL MEETING WITH DR ELIZABETH. CALL PLACED TO DR ELIZABETH AND HE WILL MEET WITH THE FAMILY. PAGE RN UPDATED. PALLIATIVE CARE WILL CONTINUE TO FOLLOW.
--- NOTE | 2023-01-22 15:51 | NUR ---
MET WITH FAMILY AFTER DR ELIZABETH, FAMILY IS NOW ASKING TO FILL OUT THE POLST. FAMILY WISHES ARE NO CPR OR INTUBATION, BUT THEY DO WANT DEFIBRILLATION IS INDICATED. POLST IS FILLED OUT AND WILL LEAVE FOR PROVIDER SIGNATURE. FAMILY ALSO REPORTS THEY HAVE DECIDED TO HOLD ON SURGERY TO REMOVE THE DIALYSIS CATHETER AT THIS TIME AND CONTINUE IV ANTIBIOTICS. FAMILY DO NOT HAVE ADDITIONAL QUESTIONS OR NEEDS AT THIS TIME, PALLIATVE CARE WILL CONTINUE TO FOLLOW AND OFFER SUPPORT.
--- NOTE | 2023-01-22 18:00 | NUR ---
SEE PREVIOUS NOTES FOR PALLIATIVE CARE UPDATE AND CODE STATUS CHANGE. POLST IN ROOM ON WHITEBOARD FOR DR. ELIZABETH TO SIGN. PATIENT CONTINUES TO OPEN EYES TO VOICE AND TOUCH. STARTLES WITH TOUCH AND SEEMS TO BE VERY FEARFUL. NOT SPEAKING OR TRACKING WITH EYES. NOT FOLLOWING COMMANDS. PATIENT THRASHING AROUND IN BED AND TRYING TO PULL AT NG TUBE, IV LINES, AND TELE. BILATEREL WRIST RESTRAINTS IN PLACE. THIS RN GIVING PATIENT BREAKS WHEN AT BEDSIDE AND ASSISTING IN ROM. TELE CONTINUES TO SHOW SR WITH HR 60-70'S. BP REMAINS SOFT. ABDOMIN TENDER, TYLENOL GIVEN PER EMAR FOR PATIENT COMFORT. Q2 TURNING WITH ATTENDS CHECKS. CLINIMX INFUSING. ON ROOM AIR SATING 100%. WILL CONTINUE TO MONITOR.
--- NOTE | 2023-01-22 20:27 | NUR ---
PM NOTE: ASSUMED CARE OF PT @1915. PT OPENING EYES TO VERBAL STIMULI ONLY. DOES NOT FOLLOW COMMANDS, YELLS OUT WHEN TOUCHED. PUPILS EQUAL AND REACTIVE. PT TRYING TO REACH FOR IV LINES AND NG TUBE. SBWR IN PLACE FOR LINE PROTECTION AND PATIENT SAFETY. BP SOFT MAP >65, HR SR 60'S, AFEBRILE, SATS >98% ON ROOM AIR. LUNG SOUNDS CLEAR IN UPPER. DIM IN BASES. PT FLINCHES WHEN ABDOMEN TOUCHED. BOWEL SOUNDS X4. PULSES STRONG AND EQUAL THROUGHOUT. MUTIPLE BRUISES/SKIN TEARS NOTED. PT INC OF URINE, STRONG FOUL SMELL NOTED WHEN CHANGING ATTENDS, NO BM. CLINIMIX GTT IN L AC. REPOS R SIDE. DILAYSIS NURSE AT BEDSIDE, WILL BEGIN PERITONEAL DIALYSIS. BED IN LOW, CALL LIGHT IN REACH, WILL CONTINUE TO MONITOR.
--- NOTE | 2023-01-22 21:00 | NUR ---
TO PCU 14 FOR FLUSH AND DRAIN OF PD CATHETER. PT IS SLEEPING, DOES NOT RESPOND TO VERBAL COMMUNICATION. CONTINUES IN SOFT RESTRAINTS. STARTLES EASILY. VSS, ABD CONTINUES TENDER TO PALPATION. CONNECTED TO ULTRA BAG DIANEAL 1.5% WITH 2U HEPARIN. PD SITE CLEAR, DRY, NO DRNG OR REDNESS. CONNECTED ASEPTICALLY PER MD ORDERS. FLUSHED x 3 WITH RETURN OF CLOUDY YELLOW FLUID. PT TOLERATED WELL. KATHERINE
--- NOTE | 2023-01-22 21:19 | NUR ---
PD NOTE; PM TX INITIATED PER MD ORDERS. PT TOLERATED WITHOUT DIFFICULTY KATHERINE
--- NOTE | 2023-01-23 00:46 | NUR ---
ASSUMED CARE @ 0000, PT IS RESTING QUIETLY, EYES CLOSED, RESP UNLABORED, SPO2 100% ON RA, NO CHANGES NOTED FROM PREVIOUS NURSE ASSESSMENT. WCTM
[2023-01-23 04:03] LABS: Hematocrit 28.4 % (33.0-51.0); Hemoglobin 9.2 g/dL (11.5-16.0)
[2023-01-23 04:17] LABS: Albumin, Blood 0.9 g/dL (3.4-5.0); Anion Gap 4 mmol/L (6-16); Blood Urea Nitrogen 37 mg/dL (8-24); Bun/Creatinine Ratio 14.2 (12.0-20.0); CO2, Blood 26 mmol/L (21-32); Calcium, Blood 7.6 mg/dL (8.5-10.1); Chloride, Blood 111 mmol/L (98-108); Creatinine, Blood 2.61 mg/dL (0.40-1.00); Glomerular Filtration Rate 19 (60-); Glucose, Blood 134 mg/dL (70-99); Magnesium, Blood 1.6 mg/dL (1.6-2.4); Phosphorus, Blood 2.8 mg/dL (2.5-4.9); Potassium, Blood 3.1 mmol/L (3.5-5.5); Sodium, Blood 141 mmol/L (136-145)
--- NOTE | 2023-01-23 05:56 | NUR ---
SUMMARY NO ACUTE CHANGES NOTED, PT CONTINUES TO REST COMFORTABLY IN BETWEEN POSITION CHANGES, PT REMAINS CONFUSED AND UNABLE TO FOLLOW COMMANDS, RESTRAINTS RELEASED AND CHECKED PER PROTOCOL, PT PULLING AT LINES WHEN OUT OF RESTRAINT, VSS, HYPOTENSIVE, SPO2 >98% ON RA, RESP UNLABORED, Q2 TURNS PROVIDED, CALL LIGHT IN REACH, WCTM & REPORT TO ONCOMING RN.
--- NOTE | 2023-01-23 07:35 | NUR ---
DIALYSIS NOTE CCPD TX COMPLETED PRESCRIBED. IDRAIN 228, TUF 125, AVG DWELL 1:28. PT DISCONNECTED PER P&P, EFFLUENT SAMPLE COLLECTED FOR CELL COUNT ORDERED AND NEW [place] PLACED, ENSURED TRANSFER SET CLOSED, AND CATH SECURE IN PLACE.
[2023-01-23 08:53] LABS: Automated BF WBC Count 5.167 K/mm3 (0-999)
[2023-01-23 08:57] LABS: Gentamicin, Random 0.7 ug/Ml; Vancomycin, Random 28.1 ug/mL
[2023-01-23 09:18] LABS: Appearance, Body Fluid Hazy (Clear); Color, Body Fluid L Yellow (None-Yellow); RBC Count, Body Fluid 176 /mm3 (0-0)
[2023-01-23 09:19] LABS: Body Fluid WBC Count 5167 /mm3 (0-999)
[2023-01-23 09:28] LABS: Total Cell Count, Body Fluid 100
--- NOTE | 2023-01-23 11:24 | NUR ---
ASSUMPTION OF CARE: NEURO: PATIENT IS A/O X 0-1 SELF ONLY, SCREAMS IN PANICK, CONFUSION WITH SLIGHT TOUCH, IS RESTING PEACEFULLY WITHOUT OUTSIDE STIMULUS, HOWEVER, DOES RESPOND TO VERBAL STIMULI. PUPILS ARE EQUAL, POTENTIAL CATARACT SURGERY IN THE LEFT EYE. GENERALIZED WEAKNESS, CURRENLTY IN SOFT BILATERAL WRIST RESTRAINTS CURRENLTY AND THIS RN DOES NOT FORSEEN ANY CHANGE DUE TO PATINET LINES, AND SAFETY. CARDIAC: NOT OBVIOUS SIGNS OF CARDIAC DISTRESS OR PAIN/PRESSURE. PATIENT DOES HAVE SOFTER BLOOD PRESSURES MIDODRINE TID CURRENTLY. RECIEVING K+ REPLACEMENT VIA IV THIS AM PULM: PATIENT SATURATING WELL ON RA, NO OBVIOUS CONCERNS THERE WELL. GI/: ATTENDS IN PLACE, Q2 ROTATIONS ABDOMEN IS SOFT AND NONTENDER IF PATIENT IS UNAWARE OF ASSESSMENT. NG TUBE FOR MEDICATIONS. RECIEVING CLINIMIX SKIN/WOUNDS: SKIN IS COMPLETEL COVERED IN SCRABS CUTS AND BRUISES FROM PATIENT SELF AFFLICTION, AND PULLING AGGRESIVELY AT RESTRAINTS. PATIENT MAY BE DEVELOPING AN INFECTION OF THE RIGHT FOREARM WITH A PUNCTURE SITE ON THE BOTTOM WHICH APPEARS TO BE SELF INFLICTED WELL. WILL MONITOR. NO CONCERNS FROM THIS RN OR FAMILY AT THIS TIME. UPDATED NEICES, ABOUT MEDICATIONS, POSITIONING, INFECTION CONTROL, PLAN OF CARE. IMAGING. CURRENT ILLNESS TRAJECTORY. WILL CONTINUE TO MONITOR UNTIL SHIFT CHANGE.
--- NOTE | 2023-01-23 13:29 | NUR ---
DIALYSIS NOTE PT IS SLEEPING, STARTLES EASILY DOES NOT RESPOND VERBALLY OTHER THAN OCCASIONAL MOANS, OR WHAT APPEARS TO BE FEARFULL. CONTINUES IN SOFT RESTRAINTS. STARTLES EASILY. VSS, PD SITE CLEAR, DRY, NO DRNG OR REDNESS. CONNECTED ASEPTICALLY PER MD ORDERS. FLUSHED x 3 WITH RETURN OF CLOUDY YELLOW FLUID. PT TOLERATED WELL.
--- NOTE | 2023-01-23 18:56 | NUR ---
END OF SHIFT: NO CHANGES FROM ASSUPMTION OF CARE. PATIENT IS NOW RECIEVING MIDODRINE AT 7.5 MG Q6. PERIT[address]AL DIALYSIS INPLACE FOR TONIGHT. PATIENT HAS BEEN SLEEPING WITHOUT STIMULUS. NO CONCERNS CONTINUE COURSE FOR THIS PATIENT FAMILY EDUCATED FOR GREATER THAN 60 MINUTES IN TOTAL. WILL CONTINUE TO MONITOR UNTIL SHIFT CHANGE.
--- NOTE | 2023-01-23 19:01 | NUR ---
PERITONEAL DIALYSIS NOTE: Patient in bed, non-verbal responses, startles easily. On soft restraints. Treatment inititated per orders. Patient connected to cycler and running without problems. Patient to run 4 hours with 2 exchanges of 1600ml and last fill 200 ml. Dwell time of 98 minutes. Report given to JAVA TECH LEAD.
--- NOTE | 2023-01-24 05:50 | NUR ---
SHIFT SUMMARY PT IS A/Ox 0-1 (SELF ONLY) FOR SHE APPEARS CONFUSED TO HER SURROUNDINGS OR WITH CARE PROVIDED BY STAFF. SCREAMS OUT WITH THE SLIGHTEST TOUCH, BUT IS ABLE TO REST WITHOUT ANY OUTSIDE STIMULUS. DOES RESPOND TO VERBAL STIMULI AND CAN FOLLOW SIMPLE INSTRUCTIONS SUCH ASKING HER TO OPEN HER EYES. GENERALIZED WEAKNESS NOTED T/O MY SHIFT. PT IN SOFT BILAT WRIST RESTRAINTS IN ORDER TO PREVENT PT FROM PULLING AT LINES/TUBES. RESTRAINTS CHECKED Q2HR ORDERED (CHECK RESTRAINT DOCUMENTATION FOR MORE DETAILS). MAINTAINS SPO2 >95% ON RA WITH NO DYSPNEA OR SOB NOTED. CARDIAC WEST, BP'S CONTINUE TO BE SOFT, BUT PROMPTLY INCREASE TO LOW 100'S SBP WITH MEDICATION GIVEN ORDERED PER EMAR. PT UNABLE TO COMMUNICATE ANY SORT OF CP OR PRESSURE AT THIS TIME. PT CONINUES TO BE ON BEDREST WITH Q2 TURNING INPLACE. LAB UNABLE TO GET ADEQUATE BLOOD FOR AM LAB RESULTS. LAB REPORTED THEY WOULD ATTEMPT AGAIN LATER THIS AM. NG TUBE REMAINS IN PLACE AND ADEQUATE SECURED, CLINIMIX RUNNING ORDERED PER EMAR. NO NEW ORDERS AT THIS TIME, WILL REPORT TO INCOMING RN
[2023-01-24 07:51] LABS: Automated BF WBC Count 1.955 K/mm3 (0-999)
[2023-01-24 07:56] LABS: Body Fluid WBC Count 1955 /mm3 (0-999)
--- NOTE | 2023-01-24 09:00 | NUR ---
DIALYSIS NOTE CCPD TX COMPLETED PRESCRIBED. IDRAIN 202, TUF 136, AVG DWELL 1:38. PT DISCONNECTED PER P&P, EFFLUENT SAMPLE COLLECTED FOR CELL COUNT ORDERED AND NEW MINCAP PLACED, ENSURED TRANSFER SET CLOSED, AND CATH SECURE IN PLACE.
[2023-01-24 09:02] LABS: Hematocrit 24.8 % (33.0-51.0); Hemoglobin 7.8 g/dL (11.5-16.0)
[2023-01-24 09:08] LABS: RBC Count, Body Fluid 81 /mm3 (0-0)
[2023-01-24 09:14] LABS: Appearance, Body Fluid Hazy (Clear); Color, Body Fluid No color (None-Yellow); Total Cell Count, Body Fluid 100
[2023-01-24 11:14] LABS: Gentamicin, Random 1.3 ug/Ml; Vancomycin, Random 21.6 ug/mL
[2023-01-24 11:17] LABS: Albumin, Blood 0.9 g/dL (3.4-5.0); Anion Gap 6 mmol/L (6-16); Blood Urea Nitrogen 41 mg/dL (8-24); Bun/Creatinine Ratio 15.8 (12.0-20.0); CO2, Blood 24 mmol/L (21-32); Calcium, Blood 7.8 mg/dL (8.5-10.1); Chloride, Blood 108 mmol/L (98-108); Glomerular Filtration Rate 19 (60-); Glucose, Blood 204 mg/dL (70-99); Magnesium, Blood 1.7 mg/dL (1.6-2.4); Phosphorus, Blood 3.1 mg/dL (2.5-4.9); Potassium, Blood 3.7 mmol/L (3.5-5.5); Sodium, Blood 138 mmol/L (136-145)
--- NOTE | 2023-01-24 12:56 | NUR ---
DIALYSIS NOTE Patient in bed, non-verbal responses, startles easily. In soft WRIST restraints. Family at bedside. Treatment inititated per orders. Patient to run 4 hours with 2 exchanges of 1600ml 2.5% and last fill dextrose different of 1500ml of 1.5% dianeal with gentamycin dose added to last fill. Report given to COMPOUNDING AND FINISHING SUPERVISOR.
[2023-01-24 13:05] LABS: Vancomycin, Trough 21.4 ug/mL (5.0-10.0)
--- NOTE | 2023-01-24 17:29 | NUR ---
"Spiritual Care | Nurse Referral Palliative Nurse Maricarmen requested this drapery hanger visit the Pt. this evening. the daughter verbalizes that the famiy is awaiting the results of one more lab test before a formal comfort care decision is made. The Pt. is mostly resting and is not responsive. Pts. daughter is present and displays evidence of grief. Daughter welcomes my visit, and I facilitate a life review of Pt. and family. Daughter displays evidence of calm engagement and communicates memories of warmth. Prayed for both the Pt. and daughter. Daughter verbalized gratitude for the spiritual care visit, and welcomed this drapery hanger to return."
--- NOTE | 2023-01-24 18:02 | NUR ---
PERITONEAL DIALSYSIS NOTE: CCPD TREATMENT COMPLETED. I-DRAIN 126 ML, TUF 277 ML, AVG DWELL TIME 1:24. PATIENT SOMNOLENT, RESPONDS WITH NODS. RESPIRATIONS EVEN AND UNLABORED. PATIENT RUN FULL CYLER TX WITHOUT PROBLEMS. PATIENT DISCONNECTED FROM CYCLER AND LINE RECAPPED USING ASEPTIC TECHNIQUE. CYCLER CLEANED OFF. REPORT GIVEN TO BLOCK SETTER GYPSUM.
--- NOTE | 2023-01-24 18:12 | NUR ---
SHIFT SUMMARY; ASSUMED CARE AT 0700. SOMMULENT BUT WAKES TO VERBAL STIMULI. YELLS OUT WHEN TOUCHED, DOES NOT ANSWER ANY QUESTIONS. OPENS EYES AND LOOKS AT THIS RN WHEN QUESTIONS ARE ASKED. BILATERAL SOFT WRIST RESTRAINTS IN PLACE FOR MOST OF SHIFT TO PROTECT LINES, DC'D IN AFTERNOON WHEN DAUGHTER AT BEDSIDE. BILATERAL ARM EDEMA WITH WHEEPING, REPOSITIONED Q2, ATTENDS CHANGE AFTER BM, NO URINE OUTPUT TODAY DURING SHIFT. PERITONEAL DIALYSIS COMPLETE TODAY, CLINIMIX INFUSING AT 50ML/HR, NG TUBE INPLACE FOR MEDS. INCREASINGLY LETHARGIC DURING SHIFT. MOANS WHEN ASKED QUESTIONS AT END OF DAY, OPENS EYES TO SPEECH AT TIMES, WILL CONTINUE TO MONITOR AND TREAT UNTIL CHANGE OF SHIFT.
--- NOTE | 2023-01-25 05:13 | NUR ---
SHIFT SUMMARY PT WAS MORE ALERT THIS SHIFT AND WOULD FOLLOW SIMPLE COMMANDS SUCH MOVING ARMS SLIGHTLY AND RESPONDING TO VERBAL STIMLI. FURTHERMORE, PT WAS ABLE TO OCCASIONALLY MAKE HER NEEDS KNOWN BY SHAKING HER HEAD "YES" OR "NO". PT ALSO ATTEMPTED TO SPEAK, BUT HER SPEECH WAS VERY MUMBLED. CONTINUES TO MAINTAIN SP2 >95% ON RA WITH NO SOB OR DYSPNEA NOTED. CARDIAC WEST, BP's HAVE IMPROVED SINCE LAST NIGHT BUT ARE STILL SOFT (90-100'S SBP). SR 60-80's. PT WAS ABLE TO GET A LOT MORE SLEEP LAST NIGHT AND APPEARS TO BE MUCH MORE COMFORTABLE WITH FAMILY IN THE ROOM. PT CONTINUES TO BE INCONTINENT OF URINE, BRIEF CHANGED Q2HR'S PRN. PT IS SCHEDULED FOR ACTH THIS AM ORDERED PER . WILL REPORT INFO TO ONCOMING DAYSHIFT RN. MOE BAILEY T/O THE SHIFT
[2023-01-25 08:10] LABS: Hematocrit 19.9 % (33.0-51.0); Hemoglobin 6.6 g/dL (11.5-16.0); Mean Corpuscular HGB 30.1 pg (26.0-34.0); Mean Corpuscular HGB Conc 33.2 g/dL (31.5-36.5); Mean Corpuscular Volume 91 fL (80-100); Mean Platelet Volume 10.4 fL (9.1-12.4); NRBC ABSOLUTE 0.09 K/mm3 (0.00-0.02); NRBC Auto 0.5 /100 WBC (0.0-0.2); Platelet Count 354 K/mm3 (150-400); RDW Coefficient Variation 14.6 % (11.7-14.2); RDW Standard Deviation 46.9 fL (35.1-46.3); Red Blood Cell Count 2.19 M/mm3 (3.80-5.20); White Blood Cell Count 16.71 K/mm3 (4.00-11.30)
[2023-01-25 08:21] LABS: Automated BF WBC Count 3.295 K/mm3 (0-999)
[2023-01-25 08:48] LABS: Gentamicin, Random 1.4 ug/Ml; Vancomycin, Random 20.2 ug/mL
[2023-01-25 09:10] LABS: Bun/Creatinine Ratio 15.7 (12.0-20.0); Calcium, Blood 7.4 mg/dL (8.5-10.1); Creatinine, Blood 2.67 mg/dL (0.40-1.00); Potassium, Blood 3.7 mmol/L (3.5-5.5)
[2023-01-25 09:12] LABS: Source, Urine Foley catheter
[2023-01-25 09:13] LABS: RBC Count, Body Fluid 30 /mm3 (0-0)
[2023-01-25 09:14] LABS: Appearance, Body Fluid Hazy (Clear)
[2023-01-25 09:15] LABS: Body Fluid WBC Count 3295 /mm3 (0-999)
[2023-01-25 09:18] LABS: BAND PERCENT MAN 1 % (0-8); BASOPHILS PERCENT MAN 0 % (0-2); EOSINOPHILS ABSOLUTE MAN 0.33 K/mm3 (0.00-0.68); EOSINOPHILS PERCENT MAN 2 % (0-6); LYMPHOCYTES ABSOLUTE MAN 1.16 K/mm3 (0.84-5.20); LYMPHOCYTES PERCENT MAN 7 % (21-46); METAMYELOCYTE ABSOLUTE MAN 0.33 K/mm3 (0.00-0.00); METAMYELOCYTE PERCENT MAN 2 % (0-0); MONOCYTES PERCENT MAN 6 % (4-13); MYELOCYTE ABSOLUTE MAN 0.33 K/mm3 (0.00-0.00); MYELOCYTE PERCENT MAN 2 % (0-0); NEUTROPHILS ABSOLUTE MAN 13.53 K/mm3 (1.96-9.15); SEG NEUTROPHILS PERCENT MAN 80 % (41-73); TOTAL CELLS COUNTED 100
[2023-01-25 09:19] LABS: Appearance, Urine Clear (Clear); Bilirubin, Urine Neg (Neg); Blood, Urine 3+ (Neg); Color, Urine Yellow (P-Yellow); Glucose Qualitative, Urine Neg (Neg); Ketones, Urine Neg (Neg); Leukocyte Esterase, Urine Neg (Neg); Nitrite, Urine Neg (Neg); Protein, Urine 2+ (Neg); Specific Gravity, Urine 1.015 (1.003-1.022); Urobilinogen, Urine NORM (Normal)
[2023-01-25 09:29] LABS: Squamous Epithelial Cells Mod /hpf (Few)
[2023-01-25 09:30] LABS: White Blood Cells, Urine 0-2 /hpf (0-5)
--- NOTE | 2023-01-25 09:30 | NUR ---
DIALYSIS NOTE PATIENT IN BED, SLEEPY BUT EASY TO WAKE. PT IS RESPONSIVE AND ABLE TO ANSWER QUESTIONS APPROPRIATLEY. EFFLUENT SAMPLE COLLECTED FOR CELL COUNT ORDERED. IN & OUT FLUSHES x 3 PROVIDED WITH RETURN OF CLOUDY YELLOW EFFLUENT. PT TOLERATED PROCEDURE WELL. REPORT GIVEN TO PRIMARY RN.
[2023-01-25 09:31] LABS: Bacteria Not Seen /hpf
[2023-01-25 09:37] LABS: Total Cell Count, Body Fluid 100
[2023-01-25 09:38] LABS: Color, Body Fluid No color (None-Yellow)
--- NOTE | 2023-01-25 12:30 | NUR ---
MET WITH JADYN VILLALOBOS RN, PT AND FAMILY IN ROOM. PT IS MORE ALERT, INTERACTING WITH OTHERS IN THE ROOM. POC IS DISCUSSED, ALL IN AGREEMENT, POLST IS SIGNED BY DR ELIZABETH. PALLIATIVE CARE WILL CONTINUE TO FOLLOW.
--- NOTE | 2023-01-25 14:14 | NUR ---
DIALYSIS NOTE PATIENT IN BED, ALERT & RESPONSIVE, ABLE TO ANSWER QUESTIONS APPROPRIATLEY. FAMILY AT BEDSIDE. IN & OUT FLUSHES x 3 PROVIDED WITH RETURN OF CLOUDY YELLOW EFFLUENT. PT TOLERATED PROCEDURE WELL. REPORT GIVEN TO PRIMARY RN.
--- NOTE | 2023-01-25 17:47 | NUR ---
SHIFT SUMMARY; ASSUMED CARE AT 0700, AWAKE AND ALERT WHEN ASSUMING CARE. COGNITION IMPROVED T/O SHIFT. A/A/OX4, MOVING ARMS WITHOUT DIFFICULTY, REMAINS WEAK IN LEGS. REPORTING BEING UNABLE TO URINATE IN AM, BLADDER SCAN, BREWSTER PLACED PER VERBAL ORDER, DRAINING CLEAR YELLOW URINE. Q2 TURNS, ORAL CARE DURING SHIFT. VSS, EVALUATED BY ST, NG REMOVED PER ORDERS, DIET ORDERED. FEEDING SELF IN EVENING WITHOUT DIFFICULTY. PLEASANT AND COOPERATIVE WITH CARE. CLINIMIX INFUSING AT 50ML/HR. DEPENDANT EDEMA TO ARMS IMPROVED TO TRACE AMOUNTS SINCE PREVIOUS SHIFT. BRUISING BILATERALLY T/O ARMS WITH SKIN TEARS COVERED. WILL CONTINUE TO MONITOR AND TREAT UNTIL CHANGE OF SHIFT.
--- NOTE | 2023-01-25 18:46 | NUR ---
PERITONEAL DIALYSIS NOTE: Patient is alert and oriented x4, sitting up having meal when first arrived in room. Family at bedside. Dialysis cycler set up per orders. No complaints of dyspnea or abdominal pain. BUE Non-pitting edema noted. Patient to run 6.5 hours with 4 exchanges of 1600 ml and last fill of 1500ml with ABX TX. Dwell time of 75 minutes. PD catheter dressing changed with no sign or symptoms of infection to exit site noted. Patient connected to [id number] and treatment started and running without problems. Report given to primary RN.
--- NOTE | 2023-01-25 22:00 | NUR ---
UPDATE PT HAD LARGE LIQUID BM THAT WAS DARK BLACK/RED. STOOL SAMPLE COLLECTED AND MD NOTIFIED. MD ORDERED SAMPLE BE SENT TO LAB FOR OCCULT BLOOD TEST. AWAITING RESULTS, NO NEW ORDERS AT THIS TIME.
[2023-01-26 04:18] LABS: Hematocrit 20.1 % (33.0-51.0); Hemoglobin 6.7 g/dL (11.5-16.0)
[2023-01-26 04:34] LABS: Albumin, Blood 1.1 g/dL (3.4-5.0); Anion Gap 7 mmol/L (6-16); Blood Urea Nitrogen 36 mg/dL (8-24); Bun/Creatinine Ratio 14.8 (12.0-20.0); CO2, Blood 25 mmol/L (21-32); Calcium, Blood 7.6 mg/dL (8.5-10.1); Chloride, Blood 105 mmol/L (98-108); Creatinine, Blood 2.43 mg/dL (0.40-1.00); Glomerular Filtration Rate 20 (60-); Glucose, Blood 172 mg/dL (70-99); Magnesium, Blood 1.7 mg/dL (1.6-2.4); Phosphorus, Blood 2.9 mg/dL (2.5-4.9); Sodium, Blood 137 mmol/L (136-145)
--- NOTE | 2023-01-26 05:03 | NUR ---
SHIFT SUMMARY PT CONTINUES TO MAINTAIN A/Ox4 AND IS PLEASANTLY COOPERATIVE WITH MEMBERS OF STAFF. ABLE TO ANSWER QUESTIONS AND VERBALIZE HER NEEDS, BUT CAN BE FORGETFULL AT TIMES. MAINTAINS SPO2 >95% ON RA WITH NO SOB OR DYSPNEA REPORTED. CARDIAC WEST, NO REPORTS OF CP OR PRESSURE AND HER BP HAS IMPROVED WITH SBP RANGING FROM 100-120'S. REMAINS SR-ST. BREWSTER CATH PATENT AND DRAINING CLEAR/YELLOW URINE TO GRAVITIY. PAIN MANAGED ORDERED PER EMAR. PT RECEIVED PERITONEAL DIALYSIS THIS AM, BUT COMPLAINED OF INCREASING ABD PAIN THAT HAS SINCE BEEN RESOLVED. PT HAD A LIQUID, BLACK/REDISH BM COLORED BM AT THE START OF MY SHIFT. SEE UPDATE NOTE. FAMILY REMAINED IN PT'S ROOM T/O THE NIGHT, PLEASANT AND ASSISTED IN PT CARE. LYNN ROSA T/O THE SHIFT
[2023-01-26 07:57] LABS: Stool Occult Blood Guaiac 1 Pos (Neg)
[2023-01-26 09:29] LABS: International Normalized Ratio 1.02; Prothrombin Time Results 10.7 Sec (9.7-11.5)
--- NOTE | 2023-01-26 09:43 | NUR ---
PERITONEAL DIALYSIS NOTE: TREATMENT COMPLETED. I-DRAIN 288, TUF 348, AVG DWELL TIME 1:04. EFFLUENT CLOUDY, PINK COLOR, NO FIBRIN NOTED. PATIENT IS ALERT AND OREINTED X4. FAMILY AT BEDSIDE. PATIENT RUN FULL CYCLER TREATMENT WITH SOME COMPLAINTS OF FEELING FULL, DENIES ABDOMINAL PAIN. DRESSING CDI. PATIENT DISCONNECTED FROM CYCLER AND LINE RECAPPED USING ASEPTIC TECHNIQUE. CYCLER CLEANED OFF. REPORT GIVEN TO PRIMARY RN.
--- NOTE | 2023-01-26 11:25 | NUR ---
CARE PROVIDED TODAY BY STUDENT RN AND MYSELF. SHIFT ASSESMENT REVIEWED, AGREE WITH ASSESMENT.
[2023-01-26 13:49] LABS: Gentamicin, Random 1.4 ug/Ml; Vancomycin, Random 16.9 ug/mL
[2023-01-26 14:15] LABS: Automated BF RBC Count 0.004 M/mm3 (0-0)
[2023-01-26 14:34] LABS: Body Fluid WBC Count 2470 /mm3 (0-999); RBC Count, Body Fluid 4000 /mm3 (0-0)
[2023-01-26 15:00] LABS: Total Cell Count, Body Fluid 100
[2023-01-26 15:01] LABS: Appearance, Body Fluid Hazy (Clear); Color, Body Fluid L Yellow (None-Yellow)
--- NOTE | 2023-01-26 15:53 | NUR ---
PERITONEAL DIALYSIS NOTE IN AND OUT FLUSHES X 3 PROVIDED WITH RETURN OF CLOUDY PINK EFFLUENT. EFFLUENT SAMPLE COLLECTED FOR CELL COUNT ORDERED. PATIENT IS ALERT AND ORIENTED. NO COMPLAINTS OF DYSPNEA OR ABDOMINAL PAIN. PATIENT TOLERATED PROCEDURE WELL. REPORT GIVEN TO PRIMARY RN.
--- NOTE | 2023-01-26 18:14 | NUR ---
SHIFT SUMMARY; ASSUMED CARE AT 0700. SHORTLY AFTER SHIFT CHANGE LARGE AMOUNT OF RED/MAROON LIQUID IN BED. PT STATES CANNOT CONTROL "IT JUST KEEPS COMING". BAR EXAMINER NURSE REPORTED SIMILAR EPISODE DURING NIGHT. PRBC ORDERED, AWAITING TRANSFUSION. SEVERAL MORE EPISODES OF SAME DURING SHIFT. DR. ELIZABETH NOTIFIED AND TO ROOM TO ASSESS. SIMILAR EPISODE WHILE DR. ELIZABETH IN ROOM. TRANSFUSIONS STARTED PER ORDERS, BP SOFT, DENIES PAIN. TAKEN TO CT VIA [place], TOLERATED WELL. PLAVIX HELD PER DR. ELIZABETH AND MADE NPO. AWAITING GI CONSULT. DR. MONTES TO ROOM IN PM. CONTINUE TO HOLD PLAVIX TOMORROW AM FOR SCOPE TOMORROW AFTERNOON. RISKS/BENEFITS OF HOLDING PLAVIX R/T RECENT STENT PLACEMENT DISCUSSED BY DR. MONTES WITH PT AND FAMILY. WILL PLAN FOR BOWEL PREP IN AM AT 0400, CLEAR LIQUID DIET, NPO AT NOON TOMORROW. PT MOVING SELF ON GURNEY INDEPENDANTLY AT TIMES TODAY, ASSISTED AND ENCOURAGED Q2 REPOSITIONING. FOAM BOOTIES BILATERALLY ON FEET, LEGS AND ARMS ELEVATED WITH PILLOWS T/O DAY. LIGHT WEEPING EDEMA FROM RIGHT ARM. BRUISES T/O UPPER CHEST AREA, BILATERALY ARMS IN VARIOUS STAGES OF HEALING. WILL CONTINUE TO MONITOR AND TREAT UNTIL CHANGE OF SHIFT.
[2023-01-26 18:16] LABS: Hematocrit 28.3 % (33.0-51.0)
--- NOTE | 2023-01-26 18:29 | NUR ---
CASE CONF WITH JADYN PRETTY, PT DEVELOPED LOWER GI BLEEDING EARLY THIS AM, INC. T/O THE DAY. LAST MELAENA STOOL WAS APPROX 1200 TODAY. PT RECEVIED 2 UNITS PRBC TODAY. PT AND FAMILY ARE DOING OK, NO INTERVENTIONS NEEDED AT THIS TIME. PALLIATIVE CARE WILL CONT TO FOLLOW AND BE AVAILABLE.
--- NOTE | 2023-01-26 19:23 | NUR ---
PERITONEAL DIALYSIS NOTE: PATIENT IN BED, ALERT AND ANSWERS APPROPRIATELY. DIALYSIS CYCLER SET UP PER ORDERS USING ASEPTIC TECHNIQUE. PATIENT HAS NO COMPLAINTS OF DYSPNEA OR ABDOMINAL PAIN. BUE NON PITTING EDEMA NOTED. PATIENT TO RUN 8 HOURS AND 10 MINUTES WITH 5 EXCHANGES OF 1600 ML AND LAST FILL OF 1500 ML WITH ABX TX. DWELL TIME OF 76 MINUTES. PD CATHETER DRESSING CDI. PATIENT CONNECTED TO CYLER AND TREATMENT STARTED AND RUNNING WITHOUT PROBLEMS. REPORT GIVEN TO PRIMARY RN.
[2023-01-26 22:22] LABS: Hematocrit 27.7 % (33.0-51.0); Hemoglobin 9.5 g/dL (11.5-16.0)
[2023-01-27 02:27] LABS: Hematocrit 29.8 % (33.0-51.0); Hemoglobin 10.2 g/dL (11.5-16.0); Mean Corpuscular HGB Conc 34.2 g/dL (31.5-36.5); Mean Corpuscular Volume 88 fL (80-100); Mean Platelet Volume 10.3 fL (9.1-12.4); NRBC Auto 0.8 /100 WBC (0.0-0.2); Platelet Count 338 K/mm3 (150-400); RDW Coefficient Variation 15.1 % (11.7-14.2); RDW Standard Deviation 46.8 fL (35.1-46.3); White Blood Cell Count 12.31 K/mm3 (4.00-11.30)
[2023-01-27 02:36] LABS: Anion Gap 6 mmol/L (6-16); Blood Urea Nitrogen 37 mg/dL (8-24); Bun/Creatinine Ratio 15.9 (12.0-20.0); CO2, Blood 25 mmol/L (21-32); Calcium, Blood 7.1 mg/dL (8.5-10.1); Chloride, Blood 104 mmol/L (98-108); Creatinine, Blood 2.32 mg/dL (0.40-1.00); Glomerular Filtration Rate 21 (60-); Glucose, Blood 189 mg/dL (70-99); Magnesium, Blood 1.9 mg/dL (1.6-2.4); Phosphorus, Blood 3.2 mg/dL (2.5-4.9); Potassium, Blood 3.4 mmol/L (3.5-5.5); Sodium, Blood 135 mmol/L (136-145)
[2023-01-27 03:59] LABS: BAND PERCENT MAN 3 % (0-8); BASOPHILS PERCENT MAN 0 % (0-2); EOSINOPHILS PERCENT MAN 0 % (0-6); LYMPHOCYTES ABSOLUTE MAN 1.35 K/mm3 (0.84-5.20); LYMPHOCYTES PERCENT MAN 11 % (21-46); METAMYELOCYTE ABSOLUTE MAN 0.36 K/mm3 (0.00-0.00); METAMYELOCYTE PERCENT MAN 3 % (0-0); MONOCYTES ABSOLUTE MAN 0.73 K/mm3 (0.16-1.47); MONOCYTES PERCENT MAN 6 % (4-13); MYELOCYTE ABSOLUTE MAN 0.61 K/mm3 (0.00-0.00); MYELOCYTE PERCENT MAN 5 % (0-0); NEUTROPHILS ABSOLUTE MAN 9.23 K/mm3 (1.96-9.15); SEG NEUTROPHILS PERCENT MAN 72 % (41-73); TOTAL CELLS COUNTED 100
--- NOTE | 2023-01-27 05:38 | NUR ---
SHIFT SUMMARY NO ACUTE CHANGES THIS SHIFT. AXO BUT SOFT SPOKEN/SLOW TO RESPOND AT TIMES. SOMEWHAT IMPULSIVE WITH PICKING AT LINES BUT RESPONDS WELL TO REDIRECTION. I NSR. BP STABLE WITH MIDODRINE ADMINISTRATION PER EMAR. REMAINS ON RA. SUREPREP STARTED THIS AM PER DR MONTES, CLEAR LIQUIDS ONLY THIS SHIFT. BREWSTER REMAINS PATENT. PERITONEAL DIALYSIS OVERNIGHT COMPLETE. AT THIS TIME, PT HAS TRIED TO HAVE BM'S 3 TIMES THIS SHUFT, UNSUCCESFUL. BRIEF DRY AND CLEAN. POWERGLIDE PATENT, CLINIMIX INFUSING. PT BEING REPOSITIONED BY STAFF. BED ALARM IN PLACE. CALL LIGHT CLIPPED TO SHEETS ON PT.
[2023-01-27 06:05] LABS: Hematocrit 30.2 % (33.0-51.0); Hemoglobin 10.4 g/dL (11.5-16.0)
--- NOTE | 2023-01-27 08:24 | NUR ---
PD RN TO PT RM # PCU 14 AT APPROX 0745 TO DISCONNECT PD CATHETHER. PT WAS SITTING UP IN BED DRINKING A CLEAR LIQUID DRINK IN PREPARARATION FOR ANOTHER PROCEDURE. WAS NOTIFIED BY PD NIGHT NURSE THAT THERE WERE SEVERAL ALARMS THROUGHOUT THE NIGHT FROM THE PD MACHINE DURING TREATMENT. PD RN DISCONNECT PD CATHETHER AT APPROX 0750AM. THE AVERAGE DWELL TIME WAS 1:00. THE INITIAL DRAIN WAS 178NL. THE TOTAL UF WAS 703ML. THE EFFLUENT WAS CLOUDY AN A BROWNISH YELLOW COLOR.
[2023-01-27 09:51] LABS: Hematocrit 31.4 % (33.0-51.0); Hemoglobin 10.6 g/dL (11.5-16.0)
[2023-01-27 10:49] LABS: Gentamicin, Random 1.3 ug/Ml; Vancomycin, Random 20.2 ug/mL
[2023-01-27 10:57] LABS: Automated BF WBC Count 0.782 K/mm3 (0-999)
[2023-01-27 11:18] LABS: Body Fluid WBC Count 782 /mm3 (0-999)
[2023-01-27 12:04] LABS: RBC Count, Body Fluid 722 /mm3 (0-0)
--- NOTE | 2023-01-27 12:10 | NUR ---
PD RN AT PT BEDSIDE AT APPROX 0900AM TO DRAW AN EFFLUENT CULTURE FROM PD CATHETER. PT HAD FAMILY VISITING IN HER ROOM DURING THIS PROCEDURE. THAT SAMPLE WAS SENT TO THE LABRAOTORY TO DETERMINE WHITE BLOOD CELL COUNT. THIS WAS DELIVERED TO THE LAB AT APPROX 0930. A RANDOM VANCO AND GENT ANTIBIOTIC LEVEL WAS TAKEN AT APPROX 1000AM TO DETERMINE CORRECT AIR CONDITIONING TECHNICIAN FOR TODAYS TX. AFTER RESULTS WERE AVALIBLE DR MATOS DISCONTINUED THE VANCO ADMIN AND PLACED AN ORDER FOR 40MG GENT IP. WHILE AWAITING LAB RESULTS AND ORDERS THE PD MACHINE WAS SET UP FOR IN AND OUT FLUSHES TO BE DONE X3. TX DIALYSATE WAS SENT TO PHARMACY TO BE LOADED WITH HEPARIN FOR THE IN AN DOUT FLUSHES WELL TONIGHTS TX. IN AND OUT FLUSHES INITIATED AT 12:10PM.
[2023-01-27 12:13] LABS: Total Cell Count, Body Fluid 100
[2023-01-27 12:14] LABS: Appearance, Body Fluid Hazy (Clear); Color, Body Fluid No color (None-Yellow)
--- NOTE | 2023-01-27 13:38 | NUR ---
Patient states colon prep results clear. History, Chart, Medications and Allergies reviewed before start of procedure.Lungs clear T/O to Auscultation. Patient confirms NPO status and agrees with scheduled surgery.
--- NOTE | 2023-01-27 13:41 | NUR ---
LAST DOSE OF PLAVIX 01/24/23, ANESTHESIA AND SED NURSE NOTIFIED.
--- NOTE | 2023-01-27 13:45 | NUR ---
01/27/23 1340 Anastasiya Ceron History, Chart, Medications and Allergies reviewed before start of procedure. See Anesthesia record. SEE DR FREY NOTES FOR DETAILS. MONITOR INTACT WITH CONTINUOUS PULSE OXIMETRY AND INTERMITTENT BP. O2 VIA N/C INTACT THROUGHOUT SEDATION/PROCEDURE.
--- NOTE | 2023-01-27 17:16 | NUR ---
CASE CONF WITH MAYELIN PRETTY WITH UPDATE ON COLONOSCOPY. PT HAS NOT HAD ANY BLEEDING TODAY. PT SITTING UP IN BED WITH MULTIPLE VISITORS. SHE IS ALERT AND INTERACTING WITH HER VISITORS. PT AND FAMILY HAVE NO COMPLIANTS, CONCERNS OR NEEDS AT THIS TIME. PALLIATIVE CARE WILL CONTINUE TO MONITOR.
--- NOTE | 2023-01-27 17:31 | NUR ---
NO ACTIVE RECTAL BLEEDING DURING THIS SHIFT. BLOOD PRESSURES HAVE REMAINED SOFT TO NORMAL T/O THE DAY. PT WITH LARGE STOOL OUTPUT POST SUREPREP PRIOR TO ANDRESSA FOR COLONOSCOPY. PER DR MONTES PT NOTED TO HAVE CHRON'S ULCERATION OF COLON, WILL RESUME DIET AND PLAVIX. PT RETURNS FROM PROCEDURE A/O X3, VSS. DENIES ABD PAIN. NO RECTAL BLEEDING. PT WITH GOOD APPETITE AND IS EATING WELL WITH CLEAR DIET AT THIS TIME. NUMEROUS FAMILY AT BEDSIDE THEY WERE UPDATED BY DR MONTES. BREWSTER CONTINUES TO DRAIN CLEAR YELLOW URINE TO GRAVITY. PALLIATIVE CARE IS UPDATED ON PT CONDITION AND PLAN MOVING FORWARD.
--- NOTE | 2023-01-27 19:07 | NUR ---
PD RN START PREP OF MACHINE AT APPROX 1800PM. PD RN TO PT RM # [id number] AT APRROX 1830PM. PT WAS VISTING WITH FAMILY. SHE DISCUSSED THE PROCEDURE THAT SHE HAD THIS AFTERNOON AND SEEM TO BE IN GOOD SPIRITS. SET UP PD MACHINE AND FINISHED PRIMING IN PT RM AT BEDSIDE. MACHINE WAS PROGRAMED TO HAVE 2 CYCLES WITH AN AVERAGE DWELL TIME OF 1 HOUR AND 38 MINUTES. EACH CYCLE FILL VOLUME IS 1600ML WITH A TOTAL FILL VOLUME OF 4700ML. THERAPY TX TO LAST APPROX 4 HOURS. TX STARTED AT APPROX 1845PM. EFFLUENT FROM INITIAL DRAIN WAS CLEAR BUT TINTED REDDISH BROWN.
[2023-01-28 04:06] LABS: Hematocrit 27.3 % (33.0-51.0); Hemoglobin 9.3 g/dL (11.5-16.0)
[2023-01-28 04:32] LABS: Albumin, Blood 1.1 g/dL (3.4-5.0); Anion Gap 7 mmol/L (6-16); Blood Urea Nitrogen 34 mg/dL (8-24); CO2, Blood 24 mmol/L (21-32); Calcium, Blood 7.6 mg/dL (8.5-10.1); Chloride, Blood 106 mmol/L (98-108); Creatinine, Blood 2.26 mg/dL (0.40-1.00); Glomerular Filtration Rate 22 (60-); Glucose, Blood 164 mg/dL (70-99); Magnesium, Blood 1.8 mg/dL (1.6-2.4); Phosphorus, Blood 3.5 mg/dL (2.5-4.9); Sodium, Blood 137 mmol/L (136-145)
--- NOTE | 2023-01-28 05:53 | NUR ---
SHIFT SUMMARY ASSUMED CARE OF PT AT 1900. PT IS A/OX3-4 BUT FORGETFUL. PT THOUGHT SEVERAL TIMES DURING THE NIGHT THAT HER FAMILY WAS IN THE HALLWAY AND PT THOUGHT IT WAS MORNING TIME AND HER FAMILY HAD ALREADY CAME AND SEEN HER. HEART SOUNDS REGULAR, LUNG SOUNDS CLEAR. PT HAD PERITONEAL DIALYSIS THIS NOC. CATHETER DRAINING WITH GRAVITY. PT TEARFUL AT START OF SHIFT. PT STATES BECAUSE SHE IS WORRIED ABOUT WHAT DOCTOR SAID THER HER. PT WANTS FAMILY TO SPEAK WITH GI DOCTOR IN AM. DR MONTES NOTIFIED AND SAID TO CALL HIM AND HE WILL COME IF HE ISNT BUSY.
--- NOTE | 2023-01-28 09:29 | NUR ---
NET SQL DEVELOPER TO PT RM AT APPROX 0815AM TO DISCONNECT NIGHTLY PD TX AND COLLECT AN EFFLUENT SAMPLE FROM CATHETER TO SEND TO THE LAB FOR A WBC COUNT. DR MATOS ORDERED A RANDOM VANCO AND GENT ANTIBIOTIC BLOOD DRAW TO DETERMINE PLAN FOR TODAYS TX. TOTAL UF FOR THIS TX WAS -29Ml. aVERAGE DWELL TIME WAS 1 HOUR AND 29 MINUTES. THE LOST DWELL WAS 0:13. THE I-DRAIN WAS 609ML. AWAITING RESULTS FROM LAB TO RELAY TO
[2023-01-28 09:37] LABS: Automated BF WBC Count 0.104 K/mm3 (0-999)
[2023-01-28 09:38] LABS: Gentamicin, Random 1.4 ug/Ml; Vancomycin, Random 15.7 ug/mL
[2023-01-28 09:45] LABS: Body Fluid WBC Count 104 /mm3 (0-999)
[2023-01-28 10:00] LABS: RBC Count, Body Fluid 958 /mm3 (0-0)
[2023-01-28 10:45] LABS: Total Cell Count, Body Fluid 100
[2023-01-28 10:47] LABS: Appearance, Body Fluid Hazy (Clear); Color, Body Fluid No color (None-Yellow)
--- NOTE | 2023-01-28 12:57 | NUR ---
PD RN TO PT RM PCU14 AT APPROX 11:45AM TO SET UP PD MACHINE FOR IN AND OUT FLUSHES. PT WAS SITTING UP IN BED VISITING WITH A ROOM FULL OF FAMILY. WHILE WAITING FOR THE MACHINE TO SELF TEST AND PRIME THIS PD RN PERFORMED A ROUTINE DRESSING CHANGED TO HER PD CATHETER SITE. THE DRESSING REMOVED WAS CLEAN DRY AND INTACT. THE PD CATHETER SITE WAS WNL. THE DRESSING APPLIED WAS CLEAN DRY AND INTACT WHEN PLACED. INITIAL DRAIN STARTED AT APPROX 1210 AND THE FILL 1 OF 3 STARTED IMMEDIATELY AFTER. I LEFT THE ROOM TO ALLOW TREATMENT TO COMPLETE, LEAVING THE PT BED AT THE LOWEST SETTING AND CALL LIGHT WITHIN REACH. THIS TREATMENT HAS A TOTAL OF 3 IN AND OUT FLUSHES WITH A FILL VOLUME OF 1500ML EACH FOR A TOTAL OF FILL VOLUME OF 4500ML WITH AN AVERAGE DWELL TIME OF 7 MINUTES AND A TOTAL THERAPY TIME OF 1 HOUR AND 20 MINUTES. THE EFFLUENT THAT WAS COLLECTED AFTER EACH IN AND OUT FLUSH WAS CLEAR WITH A YELOWISH PINK TINT TO THE FLUID. TX WILL COMPLETE AT APPROX 1330.
--- NOTE | 2023-01-28 14:20 | NUR ---
PD RN TO PT RM PCU 14 AT APPROX 1320 TO COMPLETE IN AND OUT FLUSHES TX. PT WAS DISCONNECTED AT APPROX 1340. I DRAIN WAS 1332ML TOTAL. UF WAS 202ML. AVERAGE DWELL TIME WAS 0:03 AND LOST DWELL WAS 0:13. WHEN I ENTERED PT WAS VISTITING WITH FAMILY. WHEN I LEFT PT BED WAS AT LOWEST SETTING AND CALL LIGHT WAS WITHIN REACH.
--- NOTE | 2023-01-28 14:56 | NUR ---
CARE NOTE PT BOOSTED IN BED AND PERSONAL COCCYX PILLOW PLACED UNDER BOTTOM PER PT REQUEST. BARRIER CREAM AND MEPILEX DRESSING APPLIED TO COCCYX. 2 STAFF MEMBERS REQUIRED, PT BOOSTED IN BED WELL. CALL LIGHT IS W/IN REACH AND FAMILY IS AT BEDSIDE.
--- NOTE | 2023-01-28 18:19 | NUR ---
SHIFT SUMMARY PT IS ALERT AND ORIENTED TO SELF, PLACE FAMILY AND SITUATION, SHE IS FORGETFUL AT TIMES BUT HAS BEEN ABLE TO MAKE HER NEEDS KNOWN. HR AND BP STABLE, SP02 100% VIA RA. SHE HAS DENIED FEELINGS OF CHEST PAIN/PRESSURE, SHE HAS DENIED FEELING SOB WELL DENIED FEELING NAUSEOUS. A DIET WAS STARTED TODAY PER ORDERS, CLINIMIX AND LIPIDS INFUSING IN PG IN UBALDO PER ORDERS. PT HAS FRAGILE SKIN W/ NOTED SKIN TEARS IN BILATERAL ARMS, TRANSPARENT DRESSING AND GAUZE PLACED OVER SKIN TEARS TO PREVENT LEAKING. COCCYX APPEARED RED W/ INTACT SKIN, BARRIER CREAM APPLIED AND MEPILEX DRESSING PLACED TO PREVENT SKIN BREAKDOWN. BREWSTER CATHETER IS IN PLACE AND DRAINING TO GRAVITY. FAMILY WAS AT BEDSIDE FOR MAJORITY OF SHIFT INCLUDING TWO SISTERS, AND NIECE. DELPHI PROGRAMMER'S NOW AT BEDSIDE. CALL LIGHT IS IN REACH, WILL CONTINUE TO MONITOR UNTIL REPORT GIVEN.
--- NOTE | 2023-01-28 19:12 | NUR ---
PD RN TO PT RM PCU14 TO PREPARE PT AND MACHNE FOR NIGHTLY PD TREATMENT. PT WAS SITTING UP IN BED EATING DINNER AND WATCHING TV. FILL ONE OF 2 STARTED AT 1840PM. THIS TX HAS 2 CYCLES FOR A TOTAL OF 4 HOURS OF TREATMENT WITH A FILL VOLUME OF 1600 EACH CYCLE FOR A TOTAL FILL VOLUME OF 4700ML AND A AVERAGE DWELL TIME OF 1 HR AND 38 MINUTES AND A LAST FILL OF 1500ML WITH ANTIBIOTIC TREATMENT. TX INITIATED PER DR ORDERS. LEFT PT BED AT LOWEST SETTING WITH CALL LIGHT IN REACH. RT GIVEN TO BEDSIDE RN.
--- NOTE | 2023-01-29 06:39 | NUR ---
SHIFT SUMMARY PT REMAINS A&0 X3, FORGETFUL AT TIMES. ORIENTATION WAXES AND WANES; AT TIMES PT UNABLE TO IDENTIFY PLACE, SITUATION AND LOCATION. PT STATES SHE IS IN "[place]" AT A [employer]AUR[employer]". PT REORIENTED AND STILL UNABLE TO IDENIFTY. HOWEVER AT TIMES PT ANSWERS ORIENTATION QUESTIONS CORRECTLY. VSS. 2100 LOPRESSOR HELD D/T SOFT BP. 0000 MIDODRINE HELD D/T IMPROVED BP; SEE VITALS AND EMAR. PT SLEPT WELL THROUGHOUT NIGHT. PT REPOSITIONED Q2. NO ACUTE CHANGES T/O SHIFT. CATHETER IN PLACE AND DRAINING TO GRAVITY. WILL UPDATE ONCOMING RN, CALL LIGHT IN REACH AND BED IN LOWEST POSITION.
[2023-01-29 09:18] LABS: Magnesium, Blood 1.9 mg/dL (1.6-2.4)
[2023-01-29 09:19] LABS: Albumin, Blood 1.4 g/dL (3.4-5.0); Anion Gap 6 mmol/L (6-16); Blood Urea Nitrogen 37 mg/dL (8-24); CO2, Blood 25 mmol/L (21-32); Calcium, Blood 8.2 mg/dL (8.5-10.1); Chloride, Blood 104 mmol/L (98-108); Creatinine, Blood 2.46 mg/dL (0.40-1.00); Glomerular Filtration Rate 20 (60-); Glucose, Blood 166 mg/dL (70-99); Phosphorus, Blood 4.6 mg/dL (2.5-4.9); Potassium, Blood 3.8 mmol/L (3.5-5.5); Sodium, Blood 135 mmol/L (136-145)
--- NOTE | 2023-01-29 09:51 | NUR ---
PD RN TO PT RM PCU#14 AT APPROX 0900AM TO DISCONNECT PT FROM PD TX AND PULL AN EFFLUENT FLUID SAMPLE. PD MACHINE REST FOR IN AND OUT FLUSHES. PD SAMPLE SENT TO LAB WELL ORDERS FOR RANDOM VANCO AND GENT ANTIBIOTIC LAB DRAW. AWAITING ORDERS FOR TREATMENT PER RESULTS. IN AND OUT FLUSHES STARTED AT APPROX 10:00AM. IN AND OUT FLUSHES X3 WITH A TOTAL FILL VOLUME OF 4500, OR 1500ML EACH. 1.5% DIANEAL USED WITH 1000UNITS OF HEPARIN PER LITRE. INITIAL DRAIN WAS 0ML. PT LEFT WITH CALL LIGHT WITHIN REACH.
[2023-01-29 10:08] LABS: Automated BF RBC Count 0.002 M/mm3 (0-0)
[2023-01-29 10:16] LABS: Gentamicin, Random 1.6 ug/Ml; Vancomycin, Random 23.3 ug/mL
[2023-01-29 10:17] LABS: Body Fluid WBC Count 200 /mm3 (0-999); RBC Count, Body Fluid 2000 /mm3 (0-0)
[2023-01-29 11:57] LABS: Total Cell Count, Body Fluid 100
[2023-01-29 11:58] LABS: Appearance, Body Fluid Hazy (Clear); Color, Body Fluid Red (None-Yellow)
--- NOTE | 2023-01-29 17:39 | NUR ---
SHIFT SUMMARY; ASSUMED CARE AT 0700. A/A/OX4 DURING SHIFT. PLEASANT AND COOPERATIVE WITH CARE. BREWSTER IN PLACE DRAINING CLEAR YELLOW URINE. PERITONEAL DIALYSIS BY CREATIVE MANAGER. MOVES SELF IN BED WITH MODERATE ASSISTANCE. Q2 REPOSITIONING, MEPILEX HEEL PADS PLACED FOR PREVENTATIVE. FEEDS SELF WITHOUT DIFFICULTY. EATING MOST OF FOOD TRAYS. CLIMINIX AT 50ML/HR TO UBALDO POWERGLIDE, PLEASANT AND COOPERATIVE WITH CARE. WILL CONTINUE TO MONITOR AND TREAT UNTIL CHANGE OF SHIFT.
--- NOTE | 2023-01-29 19:07 | NUR ---
PD RN TO PCU 14 TO DISCONNECT PT FROM IN AND OUT FLUSHES FROM THIS AFTERNOON. EFFLUECT WAS CLEAR BUT HAD A RED TINT. PT WAS CONNECTED TO HER NIGHTLY PD TX OF 5 CYCLES WITH A FILL VOLUME OF 1600ML EACH AND THE LAST FILL WITH A VOLUME OF 1500ML OF ANTIBIOTIC INFUSED DIALYSATE. AVERAGE DWELL TIME WAS 1 HR AND 16 MINUTES. THE IN AND OUT FLUSHES TREATMENT HAD AN IDRAIN OF 1525ML WITH A TOTAL UF OF 164ML AN AVERAGE DWELL TIME OF 0:02 AND A LOST DWELL OF 0:17. PD NIGHT TX WAS STARTED AT 1840PM.
--- NOTE | 2023-01-29 22:44 | NUR ---
ASSUMPTION OF CARE 1899 THIS RN ASSUMED CARE OF PT AT 1900. REPORT FROM SUKHWINDER MCCARTHY. PT LYING IN BED, HOB ELEVATED. PT SMILING AND INTERACTING APPROPRIATELY. PT A&0 X3-4; ANSWERING QUESTIONS CORRECTLY. VSS. PT DENIES CP OR PRESSURE, DENIES SOB. PT REPORTS MILD FEELING OF "BEING BLOATED" BECAUSE "I ATE TOO MUCH FOOD". DENIES TENDERNESS OR PAIN IN ABD. PD RUNNING. PT EXPRESSES NEED TO USE BEDPAN FOR BM. PT DID HAVE SMALL BM; SOFT AND BROWN IN COLOR, JELLY--LIKE SUBSTANCE NOTED. PT REPOSITIONED AND ATTENDS CHANGED AFTER USING BEDPAN. PT DENIES ANY OTHER NEEDS OR CONCERNS AT THIS TIME. PARTIAL LINEN CHANGE D/T LEAKING/OOZING OF CLEAR FLUID FROM R UPPER EXTREMITY. BREWSTER CATHETER IN PLACE AND DRAINING YELLOW URINE TO GRAVITY. CATH CARE AND ARISTEO CARE COMPLETED. CALL LIGHT IN REACH AND BED IN LOWEST POSITION. CLINIMEX AND LIPIDS INFUSING PER EMAR.
--- NOTE | 2023-01-30 00:53 | NUR ---
ROUNDING 0000 VS. BP 100/70; MIDODRINE ADMINISTERED PER EMAR. PT RESTING WELL IN ROOM. PT DECLINED REPOSITIONING AT THIS TIME. PT DENIES ANY PAIN OR NEEDS AT THIS TIME. ATTENDS CHECKED. CALL LIGHT IN REACH AND BED IN LOWEST POSITION
[2023-01-30 04:03] LABS: Hematocrit 30.8 % (33.0-51.0)
[2023-01-30 04:24] LABS: Magnesium, Blood 1.9 mg/dL (1.6-2.4)
[2023-01-30 04:25] LABS: Albumin, Blood 1.4 g/dL (3.4-5.0); Anion Gap 8 mmol/L (6-16); Blood Urea Nitrogen 41 mg/dL (8-24); Bun/Creatinine Ratio 18.6 (12.0-20.0); CO2, Blood 23 mmol/L (21-32); Calcium, Blood 7.8 mg/dL (8.5-10.1); Chloride, Blood 104 mmol/L (98-108); Glomerular Filtration Rate 23 (60-); Glucose, Blood 198 mg/dL (70-99); Phosphorus, Blood 4.4 mg/dL (2.5-4.9); Potassium, Blood 4.8 mmol/L (3.5-5.5); Sodium, Blood 135 mmol/L (136-145)
--- NOTE | 2023-01-30 05:01 | NUR ---
ROUNDING 0400 PT ASLEEP, BUT AWAKENED WHEN THIS RN ENTERED ROOM. VSS; ALTHOUGH BP A LITTLE SOFT AT 100/60 (72). PT REPOSITIONED AND HIPS FLOATED. ATTENDS CHECKED AND PT DRY. BREWSTER IN PLACE AND DRAINING TO GRAVITY; 450 MLS OF URINE OUT THIS SHIFT. PT DENIES ANY NEEDS AT THIS TIME. CALL LIGHT IN REACH
--- NOTE | 2023-01-30 06:17 | NUR ---
SHIFT SUMMARY NO ACUTE CHANGES FROM ASSUMPTION OF CARE AND ROUNDING NOTES. VSS. ALTHOUGH SBP A LITTLE SOFT IN 100'S. MIDODRINE PER EMAR ADMINSITERD X2. PT RESTED WELL THROUGHOUT NIGHT. PT HAD ONE SMALL BM THIS SHIFT. CALL LIGHT IN REACH AND BED IN LOWEST POSITION. WILL UPDATE ONCOMING RN
--- NOTE | 2023-01-30 08:30 | NUR ---
DIALYSIS NOTE CCPD TX COMPLETED PRESCRIBED. IDRAIN: 2, TUF: 118, AVG DWELL: 47MIN. PT DISCONNECTED PER P&P, EFFLUENT SAMPLE COLLECTED FOR CELL COUNT ORDERED. IN & OUT FLUSHES x 3 PROVIDED WITH RETURN OF CLEAR YELLOW BLOOD TINGED EFFLUENT. PT TOLERATED PROCEDURE WELL. REPORT GIVEN TO PRIMARY RN.
[2023-01-30 08:46] LABS: Automated BF RBC Count 0.002 M/mm3 (0-0)
[2023-01-30 08:58] LABS: RBC Count, Body Fluid 2000 /mm3 (0-0)
[2023-01-30 09:32] LABS: Automated BF WBC Count 0.019 K/mm3 (0-999)
[2023-01-30 09:36] LABS: Body Fluid WBC Count 19 /mm3 (0-999)
--- NOTE | 2023-01-30 09:49 | NUR ---
DIALYSIS NOTE CCPD TX COMPLETED PRESCRIBED. IDRAIN: 2, TUF: 118, AVG DWELL: 47MIN. PT DISCONNECTED PER P&P, EFFLUENT SAMPLE COLLECTED FOR CELL COUNT ORDERED. IN & OUT FLUSHES x 3 PROVIDED WITH RETURN OF CLEAR YELLOW BLOOD TINGED EFFLUENT. PT TOLERATED PROCEDURE WELL. REPORT GIVEN TO PRIMARY RN.
[2023-01-30 09:59] LABS: Appearance, Body Fluid Clear (Clear); Color, Body Fluid No color (None-Yellow)
[2023-01-30 10:23] LABS: Hematocrit 33.9 % (33.0-51.0); Hemoglobin 10.5 g/dL (11.5-16.0)
[2023-01-30 10:45] LABS: Total Cell Count, Body Fluid 100
--- NOTE | 2023-01-30 17:52 | NUR ---
SHIFT SUMMARY PT A&OX4. SP02>90% ON RA. TELEMETRY SHOWS NSR, HR 70'S. BP SOFT, MIDODRINE GIVEN PER EMAR. BREWSTER CATHETER DRAINING TO GRAVITY. ONE LARGE LOOSE MAROON BM THIS SHIFT. MD CARIAS NOTIFIED. MD CARIAS W/ ORDERS FOR STAT H&H, SEE RESULTS. PT ABLE TO AMBULATE TO [facility] TO HAVE BM. C/O OF DIZZINESS, NEEDED TO SIT A WHILE BEFORE STANDING. PT WORKED W/ PT/OT TODAY. SAT IN RECLINER MOST OF DAY. EDUCATED PT ON IMPORTANCE OF KEEPING LEGS ELEVATED WHILE IN RECLINER D/T SWELLING WHEN SITTING UPRIGHT. PT REQUIRED 3 STAFF W/ FWW AND GB TO GET FROM RECLINER BACK TO BED AND END OF DAY D/T WEAKNESS/EXHAUSTION. SPEECH THERAPY ASSESSING PT TODAY, SIGNED OFF/CLEARED PT TO EAT NORMALLY. CLINIMIX/LIPIDS INFUSED PER EMAR. PEROTINEAL DIALYSIS IN ROOM W/ DIALYSIS NURSE FINISHED THIS AM. FAMILY IN ROOM MOST OF DAY. PT CURRENTLY RESTING IN BED TALKING TO FAMILY. CALL LIGHT IN REACH.
[2023-01-30 20:05] LABS: Gentamicin, Random 1.2 ug/Ml; Vancomycin, Random 16.9 ug/mL
--- NOTE | 2023-01-30 21:58 | NUR ---
ASSUMPTION OF CARE THIS RN ASSUMED CARE OF PT AT 1900. REPORT FROM SUKHWINDER SANTORO. PT ASLEEP IN ROOM BUT EASILY AWAKENED. VSS, ALTHOUGH SBP SOFT AT 99. PT ORIENTED X 3-4. PLEASANT AND INTERACTING APPROPRIATELY. PT DENIES CP, PRESSURE, SOB, DIZZINESS OR LIGHTHEADNESS. PT DENIES N/V. PER DAY SHIFT PT HAD A LARGE BLOODY STOOL. PT DENIES ANYMORE AFTERWARDS. BREWSTER CATHETER IN PLACE AND DRAINING TO GRAVITY. PT DOES NOT EXPRESS ANY NEEDS OR CONCERNS AT THIS TIME. POWERGLIDE APPEARS INFILTRATED. LINE REMOVED AND A NEW POWERGLIDE PLACED. CLINIMIX WAS INFUSING, PHARMACY CONSULTED TO SEE IF ANYTHING NEEDS TO BE DONE. RECOMMENDED TO ELEVATE AND USE COLD COMPRESSES NEEDED. PT REPORTS SOME TENDERNESS IN EXTREMITY. ARM ELEVATED BUT PT DECLINE COMPRESS AT THIS TIME. SOME AREAS OF REDNESS FROM DRESSING. OTHER DRESSINGS THAT WERE IN PLACE FOR SKIN TEARS REMOVED, CLEANED AND REPLACED. CALL LIGHT IN REACH AND BED IN LOW POSITION
--- NOTE | 2023-01-30 22:24 | NUR ---
PD RN TO PT RM PCU 14 AT APPROX 2140 TO CONNECT NIGHT CCPD TREATMENT AND PROGRAM MACHINE. PT HAD AN INITIAL DRAIN OF 0ML. HER TREATMENT QWILL RUN 5 CYCL[place] [address], EACH FILL IS 1600ML WITH A LAST FILL OF 1500ML OF ANTIBIOTIC INFUSED DIALYSATE SOLUTION. TOTAL THERAPY TIME IS 8 HOURS AND 10 MINUTES. PT BED LEFT AT LOWEST SETTING AND CALL LIGHT WITHIN REACH. TX INITIATED PER DRS ORDERS AND PD DIALYSIS PROTOCOL.
--- NOTE | 2023-01-31 02:53 | NUR ---
UPDATE; ROUNDING 0000 PT SLEEPING IN ROOM. VSS. BP 92/56 (66). MIDODRINE ADMINISTERED BE EMAR. PT DENIES ANY NEEDS OR CONCERNS AT THIS TIME. PT REPOSITIONED AT THIS TIME. CALL LIGHT IN REACH.
--- NOTE | 2023-01-31 04:50 | NUR ---
UPDATE; ROUNDING 0400 PT ASLEEP. VSS. PT REPOSITIONED AT THIS TIME. PT DENIES ANY NEEDS OR CONCERNS. CALL LIGHT IN REACH.
--- NOTE | 2023-01-31 06:19 | NUR ---
SHIFT SUMMARY NO ACUTE CHANGES FROM ASSUMPTION OF CARE NOTE AND ROUNDING NOTES. VSS THROUGHOUT SHIFT. PT DID NOT HAVE BM THIS SHIFT. PT DENIES N/V. PT RESTED WELL THROUGHOUT SHIFT. PT HAD A PRETTY UNEVENTFUL NIGHT. CLINIMIX STILL INFUSING PER EMAR. CALL LIGHT IN REACH AND BED IN LOWEST POSITION. WILL UPDATE ONCOMING RN.
--- NOTE | 2023-01-31 07:30 | NUR ---
DIALYSIS NOTE CCPD TX COMPLETED PRESCRIBED. IDRAIN: 57, TUF: 335, AVG DWELL: 1:09. PT DISCONNECTED PER P&P.
[2023-01-31 10:35] LABS: Gentamicin, Random 0.9 ug/Ml; Vancomycin, Random 18.3 ug/mL
--- NOTE | 2023-01-31 10:37 | NUR ---
Spiritual Care Visit. Pt. is awake and sitting in a recliner and welcomes my visit. Since my last visit, Pt. has displayed evidence of much improvement. Pt. is pleasant, and verbalizes an expectation to be D/C to a SNF for rehab. Pt. displays evidence of being a motivated Pt. Facilitate a short life review and establish rapport. Prayed for Pt. Pt. verbalized gratitude for the spiritual care visit.
--- NOTE | 2023-01-31 12:14 | NUR ---
TRANSFER SUMMARY PT A&OX4. SP02>90% ON RA. TELEMETRY SHOWS NSR, HR 60'S. BP SOFT, MIDODRINE SCHEDULED PER EMAR. PT WORKING W/ OT PRIOR TO TRANSFER. BREWSTER CATHETER DRAINING TO GRAVITY. ON LARGE UNFORMED BM THIS MORNING. UP TO BSC W/ FWW AND GB. BED BATH GIVEN. IN RECLINER MOST OF MORNING. CALLED SISTER, JOVANY, TO NOTIFY OF CHANGING TO ROOM 306, PER PT REQUEST. REPORT CALLED TO SUKHWINDER MILLER
--- NOTE | 2023-01-31 15:55 | NUR ---
PD RN TO PT RM MED # 306 AT APPROX 1430 TO CONNECT IN AND OUT FLUSHES TREATMENT AND REPROGRAM MACHINE. PT WAS CONNECTED TO IN AND OUT FLUSHES AT APPROX 1500. INITIAL DRAIN AND FIRST FLUSH STARTED AT APPROX 1530. IN AND OUT FLUSHES X3 OF 1500ML EACH WITH A AVERAGE DWELL TIME OF 7 MINUTES. FOR A TOTAL VOLUME OF 4500ML AND A TOTAL THERAPY TIME OF 1:20.
--- NOTE | 2023-01-31 16:26 | NUR ---
PD RN TO PT RM MED 306 AT APPROX 1630 TO COMPLETE FLUSHES TREATMENT AND STRIP MACHINE RELOAD NEW SET AND DIALYSATE BAGS AND REPORGRAM AND CONNECT MACHINE FOR EVENING CCPD THERAPY TREATMENT WITH LAST FILL OF ANTIBIOTIC INFUSED DIALYSATE. EVENING TREATMENT STATED AT APPROX 1730 WITH A TOTAL THERAPY TIME OF 8.10 [place] [address], 4 TOTAL FILLS OF 1600ML WITH A LAST FILL OF 1500ML ANTIBIOTIC SOLUTION.
--- NOTE | 2023-01-31 17:57 | NUR ---
SHIFT SUMMARY PT UP FROM PCU. ALERT AND ORIENTED, CALLS APPROPRIATELY, FAMILY AT BEDSIDE. CLINIMIX AND FAT EMULSIONS D/C'D, PT TOLERATING PO. BREWSTER IN PLACE, DRAINING TO GRAVITY. HGB STABLE, SOFT BP'S, PT ON MIDODRINE. NO C/O PAIN. WILL CONTINUE TO MONITOR. CALL LIGHT WITHIN REACH.
[2023-02-01 05:31] LABS: Hematocrit 29.7 % (33.0-51.0); Hemoglobin 9.6 g/dL (11.5-16.0)
[2023-02-01 05:57] LABS: Albumin, Blood 1.6 g/dL (3.4-5.0); Anion Gap 8 mmol/L (6-16); Blood Urea Nitrogen 47 mg/dL (8-24); Bun/Creatinine Ratio 21.6 (12.0-20.0); CO2, Blood 25 mmol/L (21-32); Chloride, Blood 105 mmol/L (98-108); Creatinine, Blood 2.18 mg/dL (0.40-1.00); Glomerular Filtration Rate 23 (60-); Glucose, Blood 134 mg/dL (70-99); Magnesium, Blood 1.9 mg/dL (1.6-2.4); Phosphorus, Blood 4.2 mg/dL (2.5-4.9); Sodium, Blood 138 mmol/L (136-145)
--- NOTE | 2023-02-01 06:37 | NUR ---
PT A&O X 4, PT LAYING IN BED WITH EYES CLOSED DURING BEDSIDE ROUNDS, NO S/S DISTRESS/PAIN, PERITONEAL DIALYSIS IN PLACE, BREWSTER CATHETER DRAINING CLEAR YELLOW URINE, PT DENIED PAIN T/O NIGHT- BED LOW POSITION, ALL LIGHT WITHIN REACH
--- NOTE | 2023-02-01 10:15 | NUR ---
TO ROOM 306 FOR POST PD DISCONNECT. PT SITTING ON BSC. ALERT AND ORIENTED, VSS. RECOGNIZES THIS RN. PD EFFLUENT IS CLEAR PINK TINGED. PD DISCONNECTED PER ASEPTIC TECHNIQUE. TOLERATED WELL. PRIMARY RN AT BEDSIDE. WILL CONTINUE WITH POST PD FLUSHES. KATHERINE
--- NOTE | 2023-02-01 10:20 | NUR ---
POST PD FLUSHES PER MD ORDERS, PT CONTINUES UP AT BEDSIDE IN CHAIR. PLEASANT AND COOPERATIVE, TOLERATING INTERVENTIONS WELL. PT CONNECTED UNDER ASEPTIC TECHNIQUE. LEFT SITTING IN CHAIR, STABLE. KATHERINE
[2023-02-01 11:57] LABS: Gentamicin, Random 3.1 ug/Ml; Vancomycin, Random 14.3 ug/mL
--- NOTE | 2023-02-01 16:56 | NUR ---
PT IS A/OX4, PLEASANT AND COOPERATIVE. THE PT IS UP WITH MINIMAL ASSIST. THE PT WAS UP TO THE BSC THIS AM AND THEN TO THE CHAIR UNTIL SOMETIME AFTER LUNCH. THE PT APPEARS TO BE BREATHING EASILY ON RA AT THIS TIME. THE PT RECIEVED PERITONEAL DIALYSIS THIS AM. PT DENIED ANY PAIN. FAMILY AT THE BEDSIDE T/O THE DAY. CALL LIGHT IN REACH. WILL CONTINUE TO MONITOR AND ASSESS FOR CHANGES. DR. FLOWERS FOLLOWED UP WITH THE PT THIS AFTERNOON.
--- NOTE | 2023-02-01 18:54 | NUR ---
PD RN TO PT ROOM MED 206 AT APPROX 1800 TO STRIP MACHINE FROM IN AND OUT FLUSHES TREATMENT AND [facility]. THE IN AND OUT FLUSHES HAS AN INITIAL DRAIN OF 0ML. THE MACHINE WAS FINISHED PRIMING AND PT WAS CONNECT TO TX AT APPROX 1845.
[2023-02-02 04:50] LABS: Hematocrit 28.4 % (33.0-51.0)
[2023-02-02 05:11] LABS: Albumin, Blood 1.4 g/dL (3.4-5.0); Anion Gap 6 mmol/L (6-16); Blood Urea Nitrogen 52 mg/dL (8-24); Bun/Creatinine Ratio 25.4 (12.0-20.0); CO2, Blood 26 mmol/L (21-32); Calcium, Blood 7.7 mg/dL (8.5-10.1); Chloride, Blood 106 mmol/L (98-108); Creatinine, Blood 2.05 mg/dL (0.40-1.00); Glomerular Filtration Rate 25 (60-); Glucose, Blood 185 mg/dL (70-99); Magnesium, Blood 1.9 mg/dL (1.6-2.4); Phosphorus, Blood 4.1 mg/dL (2.5-4.9); Potassium, Blood 3.7 mmol/L (3.5-5.5); Sodium, Blood 138 mmol/L (136-145)
--- NOTE | 2023-02-02 05:16 | NUR ---
PATIENT ALERT AND ORIENTED X4, REMAINED IN BED FOR THE NIGHT, STATES SHE WAS TOO WEAK TO GET UP AND USE BSC AND USED BED WATSON. ONE INC STOOL. BP'S SOFT, OTHERWISE VSS. NO CALLS FROM TELE, RUNNING SR. PG DRESSING CHANGES THIS MORNING, EDEMA AND SOME WEEPING TO BUE. WILL CONT TO MONITOR.
[2023-02-02 09:27] LABS: Gentamicin, Random 1.8 ug/Ml; Vancomycin, Random 18.7 ug/mL
--- NOTE | 2023-02-02 11:15 | NUR ---
PD RN TO PT RM MED 306 AT APPROX 0930 TO DISCONNECT PT FROM NIGHT CCPD TX AND STRIP MACHINE. EFFLUENT WAS CLEAR BUT REDDISH TINT. PERFORMED DRESSING CHANGE ON PT PD CATHETER SITE NO REDNESS SWELLING TENDERNESS OR DRAINAGE. I DRAIN FROM TREATMENT WAS 1107 ML AND TOAL UF WAS 439 ML. PD RN THEN SET UP MACHINE FOR IN AND OUT FLUSHES TX X3 AND CONNECT PT TO TX AT APPROX 1030AM. DR MATOS V/O OF NO VANCO AND GENT ANTIBIOTICS FOR CCPD NIGHT TX TODAY BUT HE DID REQUEST ANOTHER IN AND OUT FLUSH X3 TO BE COMPLETED THIS AFTERNOON. LEFT PT BED AT LOWEST SETTING AND CALL LIGHT WITHIN REACH.
--- NOTE | 2023-02-02 16:54 | NUR ---
PD RN TO PT RM MED 306 AT APPROX 1445 TO D/C IN AND OUT FLUSHES TX. I DRAIN VOLUME: 1614ML, TOTAL UF: 331 ML, AVERAGE DWELL 0:01, AND LOST DWELL 0:01. CONNECTED PTS 2ND DOSE OF IN AND OUT FLUSHES AT APPROX 1530 BEFORE LEAVING THE ROOM. PT FAMILY AT BEDSIDE, BED AT LOWEST SETTING AND CALL LIGHT IN REACH.
[2023-02-02 17:00] LABS: C DIFFICILE DNA NEGATIVE (Negative)
[2023-02-02 17:15] LABS: BASOPHILS ABSOLUTE AUTO 0.06 K/mm3 (0.00-0.23); BASOPHILS PERCENT AUTO 0 % (0-2); EOSINOPHILS ABSOLUTE AUTO 0.01 K/mm3 (0.00-0.68); EOSINOPHILS PERCENT AUTO 0 % (0-6); Hematocrit 29.1 % (33.0-51.0); Hemoglobin 9.2 g/dL (11.5-16.0); IMMATURE GRAN ABSOLUTE AUTO 0.56 K/mm3 (0.00-0.10); IMMATURE GRAN PERCENT AUTO 3 % (0-1); LYMPHOCYTES ABSOLUTE AUTO 3.27 K/mm3 (0.84-5.20); LYMPHOCYTES PERCENT AUTO 18 % (21-46); MONOCYTES ABSOLUTE AUTO 1.77 K/mm3 (0.16-1.47); MONOCYTES PERCENT AUTO 10 % (4-13); Mean Corpuscular HGB 30.9 pg (26.0-34.0); Mean Corpuscular HGB Conc 31.6 g/dL (31.5-36.5); Mean Corpuscular Volume 98 fL (80-100); NEUTROPHILS ABSOLUTE AUTO 12.36 K/mm3 (1.96-9.15); NEUTROPHILS PERCENT AUTO 69 % (41-73); NRBC ABSOLUTE 0.03 K/mm3 (0.00-0.02); NRBC Auto 0.2 /100 WBC (0.0-0.2); RDW Coefficient Variation 17.5 % (11.7-14.2); RDW Standard Deviation 59.4 fL (35.1-46.3); Red Blood Cell Count 2.98 M/mm3 (3.80-5.20); White Blood Cell Count 18.03 K/mm3 (4.00-11.30)
--- NOTE | 2023-02-02 17:24 | NUR ---
"Spiritual Care | Family support during Rapid Response Pt. is attended by RR Team and Dr. Rojas. Family are present in the hallway and are unsettled by the Pts. recent decline. Listen with empathy and give the family feedback and education regarding the RR Team engagement. Pt. displays evidence of being stabilized. Family waiting in the Med. floor lobby for medical staff to ishan working with Pt. Family verbalized gratitude for the support."
[2023-02-02 17:26] LABS: Albumin, Blood 1.5 g/dL (3.4-5.0); Anion Gap 11 mmol/L (6-16); Blood Urea Nitrogen 56 mg/dL (8-24); Bun/Creatinine Ratio 24.8 (12.0-20.0); CO2, Blood 21 mmol/L (21-32); Calcium, Blood 7.7 mg/dL (8.5-10.1); Chloride, Blood 108 mmol/L (98-108); Creatinine, Blood 2.26 mg/dL (0.40-1.00); Glomerular Filtration Rate 22 (60-); Glucose, Blood 212 mg/dL (70-99); Phosphorus, Blood 4.5 mg/dL (2.5-4.9); Potassium, Blood 4.3 mmol/L (3.5-5.5); Sodium, Blood 140 mmol/L (136-145)
[2023-02-02 17:42] LABS: Mean Platelet Volume 10.1 fL (9.1-12.4); Platelet Count 602 K/mm3 (150-400)
--- NOTE | 2023-02-02 18:47 | NUR ---
TRANSFER TO PCU: PT TRANSFERRED TO PCU 05 AT 1830. REPORT GIVEN TO SUKHWINDER COTTRELL. CLINIMIX AND NS BOLUS SENT WITH PT. PT APPEARED TO BE BREATHING BETTER AT TRANSFER. DR. FLOWERS NOTIFIED OF PT CONDITION. C DIFF NEGATIVE. ALL BELONGINGS SENT WITH PT. HGB RAISED SINCE AM LABS.
--- NOTE | 2023-02-02 19:07 | NUR ---
DIALSYSIS NOTE: TO PATIENT ROOM IN 306 FOR DISCONNECTING PD CYLCER FOR COMPLETION OF X 3 FLUSHES. PATIENT DISCONNECTED PER PROTOCOL. PATIENT CHANGED ROOM TO PCU5. DIALYSIS CYLER SET-UP PER ORDERS FOR OVERNIGHT TX. PATIENT IS ALERT AND ORIENTED. DENIES DYSPNEA OR ABDOMINAL PAIN. PATIENT TO RUN 8 HOURS WITH 5 EXCHANGES OF 1600 ML AND LAST FILL OF 200 ML. DWELL TIME OF 75 MINUTES. PD CATHETER DRESSSING IS CLEAN, DRY AND INTACT. PATIENT CONNECTED TO CYCLER AND TREATMENT STARTED AND RUNNING WITHOUT PROBLEMS. REPORT GIVEN TO PRIMARY RN.
--- NOTE | 2023-02-02 22:48 | NUR ---
ASSUMPTION OF CARE REPORT OBTAINED FROM SIMBA PRETTY AT ABOUT 2114. PT IS ALERT AND ORIENTED AND HAD FAMILY AT BED SIDE. SHE IS HOOKED UP TO HER NIGHTLY PD TREATMENT, AND HAS BEEN RESTING. SHE WAS ABLE TO TAKE ALL OF HER MEDICATIONS WHOLE, AND FOLLOW CONVERSATION APPROPRIATELY. HER BP HAS BEEN SOFT BUT IS RECIEVING SCHEDULED MIDODRINE. BP STABLE. PT HAS HAD NO COMPLAINTS AND IS ON ROOM AIT. SHE STATED THAT SHE FEELS WEAK AND WANTS TO REST. SHE HAS A BREWSTER DRAINING TO GRAVITY, IS A Q2 TURN IN BED, AND HAS CLINIMIX INFUSING. HER BED IS IN LOW AND CALL LIGHT IS IN REACH. THERE HAVE BEEN NO REPORTS OF BOWEL MOVEMENTS SINCE ARRIVING TO PCU. DR. MONTES CAME TO BEDSIDE AND SAW THE PT. HE STATED THAT IS HER HGB DROPS BELOW 7 TO GIVE ONE UNIT OF PRBC. A NURS NOTIFY WAS PUT IN THE CHART. WILL CONTINUE CARE UNTIL CARE IS ASSUMED BY THE ONCOMING RN.
--- NOTE | 2023-02-02 23:05 | NUR ---
CARE HANDED OFF TO ALEX PRETTY AT ABOUT 2392
[2023-02-03 04:44] LABS: Hemoglobin 7.6 g/dL (11.5-16.0)
[2023-02-03 05:01] LABS: Albumin, Blood 1.5 g/dL (3.4-5.0); Anion Gap 7 mmol/L (6-16); Blood Urea Nitrogen 56 mg/dL (8-24); Bun/Creatinine Ratio 23.6 (12.0-20.0); CO2, Blood 26 mmol/L (21-32); Calcium, Blood 7.7 mg/dL (8.5-10.1); Chloride, Blood 106 mmol/L (98-108); Creatinine, Blood 2.37 mg/dL (0.40-1.00); Glomerular Filtration Rate 21 (60-); Glucose, Blood 215 mg/dL (70-99); Magnesium, Blood 1.7 mg/dL (1.6-2.4); Phosphorus, Blood 5.1 mg/dL (2.5-4.9); Potassium, Blood 4.2 mmol/L (3.5-5.5); Sodium, Blood 139 mmol/L (136-145)
--- NOTE | 2023-02-03 05:56 | NUR ---
SHIFT SUMMARY ASSUMED CARE OF PT AT 2300. PT IS A/OX4. PT STATES SHE FEELS TIRED. PT IS VERY PALE. HEART SOUNDS REGULAR. PT ON RA T/O THE NIGHT. BREWSTER DRAINING YELLOW URINE. NO BM SINCE. AT 0400, PT HAD LOW BP WITH MAPS IN 40S. HOSPITALIST NOTIFIED AND INCREASED MIDODRINE. H/H THIS AM WAS 7.6, HOSPITALIST SAID TO REPEAT LAB AT [address] MONTES IN THE AM PT IS STABLE.
--- NOTE | 2023-02-03 07:12 | NUR ---
Pt is awake, alert and oriented to person, place, month and day (but not the year-she couldn't even venture a guess), and does not remember why she originally came into the hospital. She is lying in bed, appears to be comfortable, and does not have any complaints of pain/discomfort. Vital signs are stable; however, blood pressure remains low with MAP of 68. Spo2 is 98% on room air, RR 12/min. IV clinimix infusing at 50 cc/hour via powerglide RUE.
[2023-02-03 08:06] LABS: Hematocrit 22.9 % (33.0-51.0); Hemoglobin 7.2 g/dL (11.5-16.0)
--- NOTE | 2023-02-03 08:15 | NUR ---
DIALYSIS-PD PT NOT FEELING WELL. RETURNED TO PCU FROM MED FLOOR DURING THE NIGHT. ID [id number] UF [id number] ML, FLUID CLEAR. TX WITHOUT ALARMS. PT DCED FROM TX PER PROTOCAL. LABS DRAWN FROM PD CATH FLUID.
[2023-02-03 09:00] LABS: Automated BF WBC Count 0.018 K/mm3 (0-999)
[2023-02-03 09:06] LABS: Body Fluid WBC Count 18 /mm3 (0-999)
[2023-02-03 10:28] LABS: RBC Count, Body Fluid 65 /mm3 (0-0)
[2023-02-03 10:43] LABS: Total Cell Count, Body Fluid 35
[2023-02-03 10:45] LABS: Color, Body Fluid No color (None-Yellow)
[2023-02-03 10:46] LABS: Appearance, Body Fluid Clear (Clear)
--- NOTE | 2023-02-03 11:40 | NUR ---
Pt is sitting up in bed, blood transfusion in progress. She is surrounded by family who are at the bedside, talking with her and pleasantly with staff. vital signs are stable; pt denies any symptoms at this time.
[2023-02-03 11:56] LABS: Gentamicin, Random 1.1 ug/Ml; Vancomycin, Random 14.9 ug/mL
--- NOTE | 2023-02-03 15:35 | NUR ---
Pt repositioned by CNAs to supine position. No significant nausea today, but her appetite has been poor.
--- NOTE | 2023-02-03 18:05 | NUR ---
Pt was assisted to sit on side of bed, stand, and walk with geriwalker to the recliner for dinner. Required only minimal assistance with gait belt. Tolerated the activity very well.
--- NOTE | 2023-02-03 18:57 | NUR ---
After dinner, pt experienced some feeling of indigestion and "not feeling well". She was still sitting in the chair at bedside. Assisted to stand (needed max assist at this time) and transfer to the bed. She felt quite unwell during the transfer, stating "I can't catch my breath". She was assisted to get back into the bed, after which she quickly recovered. Desire is here setting up the pt for PD this evening.
--- NOTE | 2023-02-03 19:51 | NUR ---
DIALYSIS-PD PT NOT FEELING WELL TODAY. SHE WAS UP IN A CHAIR FOR DINNER. SIMBA MARTIN AND I GOT HER BACK TO BED. SHE WAS C/O OF SOB. ONCE SHE WAS IN BED IT IMPROVED. I SET UP HER PD TX AND STARTED IT AT 1920. HER SITE IS CLEAR. HER FLUID IS CLEAR. SHE SAID SHE WAS VERY TIRED AND WANTED TO SLEEP.
--- NOTE | 2023-02-03 23:30 | NUR ---
DIALYSIS-PD CALLED ABOUT ALARM ON PD TX. 1 OF 3 DRAINS. LOW FLOW ALARM. TRIED TO FIX IT WITH RN OVER THE PHONE. BUT IT WOULD NOT SHOW "BYPASS". CAME IN. IT TOOK 6 TRYS BEFORE IT ALLOWED ME TO BYPASS. NOW IN FILL 2 OF 3.
--- NOTE | 2023-02-04 00:20 | NUR ---
DIALYSIS-PD A FEW BLOCKS FROM MY HOME,I WAS CALLED BACK IN. THIS TIME "CHECK PT LINE FOR FILL". USED A 10 CC SYRING TO CHECK PT'S TUBE PER PROTOCAL. ASPIRATED AND FLUSHED WELL. CHECKED ALL THE LINES. RESTARTED IT. WAITING TO SEE IF IT WORKS.
--- NOTE | 2023-02-04 02:56 | NUR ---
DIALYSIS PD CALLED FOR ALARMS ON PD TX AGAIN. THE LAST BAG OF DIANEAL (CONTAINED THE ANTIBIOTICS) WOULD NOT GO UP TO THE HEATER BAG. DCED TX AND PER PROTOCAL INSERTED THE ANTIBIOTICS MANUALY AFTER SITTING ON THE HEATER. IF COLD CAN CAUSE CRAMPS. ID [id number] ML. UF [id number] ML.
[2023-02-04 03:27] LABS: Hematocrit 23.3 % (33.0-51.0); Hemoglobin 7.6 g/dL (11.5-16.0)
[2023-02-04 03:43] LABS: Albumin, Blood 1.5 g/dL (3.4-5.0); Anion Gap 6 mmol/L (6-16); Blood Urea Nitrogen 72 mg/dL (8-24); Bun/Creatinine Ratio 29.6 (12.0-20.0); CO2, Blood 27 mmol/L (21-32); Calcium, Blood 7.3 mg/dL (8.5-10.1); Chloride, Blood 104 mmol/L (98-108); Creatinine, Blood 2.43 mg/dL (0.40-1.00); Glomerular Filtration Rate 20 (60-); Glucose, Blood 217 mg/dL (70-99); Magnesium, Blood 1.8 mg/dL (1.6-2.4); Phosphorus, Blood 5.5 mg/dL (2.5-4.9); Potassium, Blood 4.2 mmol/L (3.5-5.5); Sodium, Blood 137 mmol/L (136-145)
--- NOTE | 2023-02-04 05:39 | NUR ---
SHIFT SUMMARY ASSUMED CARE OF PT AT 1900. PT IS A/OX4. HEART SOUNDS REGULAR. LUNG SOUNDS CLEAR. NO ACTUE EVENTS DURING THE NIGHT. PURWICK DRAINING YELLOW URINE. PERITONEAL DIALYSIS DONE. NO NEW COMPLAINTS.
[2023-02-04 09:30] LABS: Gentamicin, Random 1.5 ug/Ml; Vancomycin, Random 17.7 ug/mL
--- NOTE | 2023-02-04 09:39 | NUR ---
DIALYSIS-PD TETE LAB FROM PD CATH FOR CELL CT PER PROTOCAL.
[2023-02-04 09:45] LABS: Automated BF WBC Count 0.013 K/mm3 (0-999)
[2023-02-04 10:14] LABS: Body Fluid WBC Count 13 /mm3 (0-999)
[2023-02-04 10:41] LABS: RBC Count, Body Fluid 41 /mm3 (0-0)
[2023-02-04 10:57] LABS: Total Cell Count, Body Fluid 45
[2023-02-04 10:58] LABS: Appearance, Body Fluid Clear (Clear); Color, Body Fluid No color (None-Yellow)
--- NOTE | 2023-02-04 12:23 | NUR ---
Pt struggling with food intake and appetite. Pt complains of memory getting worse. Will contine to discuss prognosis. will see what Dr lipscomb has planned for dialysis. pt kps score is 40% may be better served by hospice. is frail They may both need a future plan for care.
--- NOTE | 2023-02-04 18:14 | NUR ---
SHIFT SUMMARY; ASSUMED CARE AT 0700. A/A/OX3 WITH INTERMITANT FOREGETFULLNESS. MOVES SELF ON GURNEY BUT ASSISTED WITH REPOSITION T/O DAY. BRUISING BILATERALLY TO ARMS, IN VARIOUS STAGES OF HEALING. PILLOW UNDER HEELS DURING SHIFT TO ELEVATE FEET FROM MATTRESS. PURWICK IN PLACE AND CHANGED TODAY. BED BATH COMPLETED. CLINIMIX INFUSING AT 50ML/HR. ENCOURAGED PO INTAKE OF FOOD. NO RECTAL BLEEDING DURING SHIFT. VSS, WILL CONTINUE TO MONITOR AND TREAT UNTIL CHANGE OF SHIFT.
--- NOTE | 2023-02-04 18:48 | NUR ---
DIALYSIS NOTE: To patient room in PCU5 for CCPD Flushes in and out. Patient is alert and oriented x4. Family present at bedside. Dialysis cylcer set up per orders. Patient has no complain of dyspnea or abdominal pain. Patient to run 1.3 hours with 3 exchanges of 1600 ml and last fill 0. Dwell time of 7 minutes. PD catheter dressing CDI. Patient connected to cylcer and treatment started and running without problems. I-Drain of 1943 ml.
--- NOTE | 2023-02-04 21:15 | NUR ---
DIALYSIS-PD: To patient room in PCU5 to disconnect CCPD flushes in and out and start of overnight CCPD treatment. CCPD cylcer set up per orders. Patient in bed, alert and oriented x4. No complaints of dyspnea or abdominal pain. Patient to run 6.5 hours with 3 exhanges of 1600ml and last fill of 1500 with 750 mg vancomycin and 40 mg gentamycin. Dwell time of 104 minutes. PD catheter dressing is clean, dry and intact. Patient connected to cycler and treatment started and running without problems. Report given to PIPE LAYER.
[2023-02-05 03:29] LABS: Hematocrit 18.1 % (33.0-51.0); Mean Corpuscular HGB 31.4 pg (26.0-34.0); Mean Corpuscular Volume 98 fL (80-100); Mean Platelet Volume 10.5 fL (9.1-12.4); NRBC ABSOLUTE 0.17 K/mm3 (0.00-0.02); NRBC Auto 1.2 /100 WBC (0.0-0.2); Platelet Count 424 K/mm3 (150-400); RDW Coefficient Variation 17.7 % (11.7-14.2); RDW Standard Deviation 60.3 fL (35.1-46.3); Red Blood Cell Count 1.85 M/mm3 (3.80-5.20); White Blood Cell Count 14.68 K/mm3 (4.00-11.30)
[2023-02-05 03:35] LABS: Hemoglobin 5.8 g/dL (11.5-16.0)
[2023-02-05 03:43] LABS: Albumin, Blood 1.4 g/dL (3.4-5.0); Anion Gap 6 mmol/L (6-16); Blood Urea Nitrogen 81 mg/dL (8-24); Bun/Creatinine Ratio 35.8 (12.0-20.0); CO2, Blood 25 mmol/L (21-32); Calcium, Blood 7.2 mg/dL (8.5-10.1); Chloride, Blood 104 mmol/L (98-108); Creatinine, Blood 2.26 mg/dL (0.40-1.00); Glomerular Filtration Rate 22 (60-); Glucose, Blood 212 mg/dL (70-99); Magnesium, Blood 1.8 mg/dL (1.6-2.4); Phosphorus, Blood 5.3 mg/dL (2.5-4.9); Potassium, Blood 4.3 mmol/L (3.5-5.5); Sodium, Blood 135 mmol/L (136-145)
[2023-02-05 03:57] LABS: BAND PERCENT MAN 4 % (0-8); BASOPHILS PERCENT MAN 0 % (0-2); EOSINOPHILS PERCENT MAN 0 % (0-6); LYMPHOCYTES ABSOLUTE MAN 1.02 K/mm3 (0.84-5.20); LYMPHOCYTES PERCENT MAN 7 % (21-46); METAMYELOCYTE ABSOLUTE MAN 0.14 K/mm3 (0.00-0.00); METAMYELOCYTE PERCENT MAN 1 % (0-0); MONOCYTES ABSOLUTE MAN 2.49 K/mm3 (0.16-1.47); MONOCYTES PERCENT MAN 17 % (4-13); MYELOCYTE ABSOLUTE MAN 0.14 K/mm3 (0.00-0.00); MYELOCYTE PERCENT MAN 1 % (0-0); NEUTROPHILS ABSOLUTE MAN 10.86 K/mm3 (1.96-9.15); SEG NEUTROPHILS PERCENT MAN 70 % (41-73); TOTAL CELLS COUNTED 100
--- NOTE | 2023-02-05 04:58 | NUR ---
ATTEMPTED TO CONTACT PT'S SISTER JOVANY PER PT REQUEST. LEFT VAGUE MESSAGE AT [phone].
--- NOTE | 2023-02-05 04:59 | NUR ---
DIALYSIS-PD CALLED IN DUE TO PT DECLINE. NEEDED TO BE DC'D FROM PD MACHINE. GLADYS PRETTY WANTS TO BE ABLE TO GET THE PT TO THE ICU QUICK IF IT BECOMES NECESSARY. PT IS HAVING A GI BLEED. RECIEVING PRBC NOW, DISCONNECTED THE PT FROM PD TX PER PROTOCAL. SHE IS AWAKE AND ALERT, BUT YOU CAN TELL SHE IS FEELING WELL.
--- NOTE | 2023-02-05 05:03 | NUR ---
CONTACTED DR KINGSLEY TO REQUEST [employer] SD. SHE STATES SHE WILL PUT THE ORDER IN.
--- NOTE | 2023-02-05 05:12 | NUR ---
DIALYSIS PD Willy WEST RN NOTIFIED DR MATOS ABOUT PT'S CONDITION AND THAT I WAS COMING IN.
--- NOTE | 2023-02-05 07:21 | NUR ---
NUMERICAL CONTROL TOOL PROGRAMMER SUMMARY ASSUMED CARE OF THE PT AT 1900. SHE IS ALERT AND ORIENTED X2-3, FORGETFUL. PT FOLLOWS DIRECTIONS BUT IS WEAK THROUGHOUT BUT ASSISTS WITH ROLLS. AROUND 0300 THIS MORNING, PT BEGAN COMPLAINING OF SHORTNESS OF BREATH AND OVERALL "FEELING SICK". SHE ALSO REPORTED FEELING "LARGE AMOUNTS OF DIARRHEA" AND WAS FOUND TO HAVE A VERY LARGE DARK RED BLOOD BM AFTER WHICH PT BEGAN FEELING NAUSEOUS AND APPEARED VERY PALE. LABS THIS MORNING SHOWED PT HEMOGLOBIN DROPPED TO 5.8. CARLO CONTACTED AND AN ORDER OBTAINED FOR 1 UNIT OF PRBCS. PT BP HAS BEEN UNSTABLE. RECEIVED 1L NS BOLUS PRESSURE BAGGED FOR PRESSURE SUPPORT. SHE IS CURRENTLY RECEIVING HER SECOND BAG OF PRBCS. PROTONIX DRIP STARTED. HR HAS BEEN SLOWLY DECREASING WITH BLOOD INFUSION BUT HAS BEEN SINUS. PT DENIES CHEST PAIN.
--- NOTE | 2023-02-05 07:30 | NUR ---
ASSUMED CARE: UPON RECIEVING BEDSIDE REPORT, PT IS RESTING IN BED TALKING TO STAFF. 2ND UNIT OF PRBCS INFUSING. BLOOD PRESSURES LOW, TRENDING MAPS. PROTONIX GTT STARTED BY NIGHT RN. HOTEL OR MOTEL CLEANING SUPERVISOR AWARE OF CURRENT SITUATION AND PLAN TO TREND BPS DURING INFUSION TO DETERMINE IF TRANSFER IS NEEDED. NO FURTHER NEEDS AT THIS TIME.
--- NOTE | 2023-02-05 08:50 | NUR ---
CALL TO DR GIL DUE TO PT HAVING CONTINUED BPS WITH MAPS IN 50S, SYSTOLIC 60S. DR INSTRUCTED TO CALL DR MONTES TO LET HIM KNOW THAT PT IS REBLEEDING. DR GIL AWARE THAT PT ALREADY ATE BREAKFAST THIS AM. MESSAGE LEFT FOR SISTER TO GIVE UPDATE WITH PHONE NUMBER FOR CALL BACK. REPORT GIVEN TO ICU NURSE. CAME BACK TO ROOM AND FOUND PD DIALYSIS CONNECTED. CALL TO DIALYSIS NURSE WHO STATED SHE RECONNECTED SINCE PT NEVER GOT TRANSFERRED. ASKED HER TO COME DISCONNECT SO THAT PT COULD BE TRANSFERRED TO ICU. DR MONTES WAS CALLED AND AWARE OF CURRENT BLEEDING. PT ASKED FOR MORE FOOD AND STATED WILL WITHOLD FOR NOW IN CASE GI WANTS TO DO ANYTHING FURTHER. FINISHED EATING AT 0830.
--- NOTE | 2023-02-05 09:00 | NUR ---
DIALYSIS NOTE EFFLUENT SAMPLE COLLECTED FOR CELL COUNT ORDERED. IN & OUT FLUSHES x 3 PROVIDED WITH RETURN OF CLEAR YELLOW EFFLUENT. PT TOLERATED PROCEDURE WELL. REPORT GIVEN TO PRIMARY RN.
[2023-02-05 09:06] LABS: Gentamicin, Random 1.7 ug/Ml; Vancomycin, Random 20.2 ug/mL
[2023-02-05 09:08] LABS: Body Fluid WBC Count 102 /mm3 (0-999)
--- NOTE | 2023-02-05 09:13 | NUR ---
PT'S SISTER CALLED BACK AND WAS GIVEN UPDATE BY CHARGE NURSE. PT TRANSFERRED BY BED TO ICU 12.
[2023-02-05 09:15] LABS: Appearance, Body Fluid Hazy (Clear); Color, Body Fluid No color (None-Yellow)
[2023-02-05 09:19] LABS: Automated BF WBC Count 0.102 K/mm3 (0-999)
[2023-02-05 09:20] LABS: RBC Count, Body Fluid 92 /mm3 (0-0)
--- NOTE | 2023-02-05 09:20 | NUR ---
TRANSFER TO ICU PT ARRIVES AT 0910. REPORT FROM CADENCE PRETTY. PT A&OX 3. DENIES COMPLAINTS. STATES SHE WAS SOB AND LIGHTHEADED THIS AM. STATES SYMPTOMS RESOLVED. REPORTS THREE LARGE BMS LAST NOC/THIS AM. DENIES ABD PAIN, N/V OR NEED TO HAVE BM. ABD ROUND, SOFT, NON TENDER. BT X 4. LUNGS DIM. O2 SATS 100% ON RA. DENIES SOB. SB ON MONITOR, RATE 50'S. BP STABLE AT THIS TIME. LEVO ORDERED, NOT ADMINISTERED. PT PALE, CAP REFILL<3 SEC. 2 UNIT OF PRBCS COMPLETE, H&H ORDERED FOR 1000. POWERGLIDE TO RUE, DRESSING C/D/I. WILL CONTINUE TO MONITOR.
[2023-02-05 10:22] LABS: Hematocrit 29.3 % (33.0-51.0); Hemoglobin 9.7 g/dL (11.5-16.0)
[2023-02-05 10:50] LABS: Total Cell Count, Body Fluid 10
--- NOTE | 2023-02-05 17:22 | NUR ---
DIALYSIS-PD: To patient room in ICU12 for overnight CCPD Tx. Patient is alert and oreinted x4. Family at bedside. Patient has no complaint of dyspnea or abdominal pain. Dialysis cycler set up per protocol. Patient to run 6.5 hours with 3 exchanges of 1600 ml and last fill of 1500 ml with antibiotic treatment. Dwell time of 103 minutes. PD dressing CDI. Patient connected to cycler and treatment started and running without problems. Report given to primary RN.
--- NOTE | 2023-02-05 17:35 | NUR ---
SHIFT SUMMARY NO ACUTE CHANGES SINCE ARRIVAL TO ICU. MAP>65, NO PRESSORS STARTED THIS SHIFT. PT STATES SYMPTOMS RESOLVED SENIOR PROCESS ENGINEER TO ICU. DENIES COMPLAINTS AT THIS TIME. VISTING c FAMILY, A&OX 3, ANSWERS QUESTIONS APPROPRIATELY, FOLLOWS COMMANDS. LUNGS DIM. SR, RATE 60-70'S. SKIN FRAGILE, BUE EDEMATOUS, ECCHYMOSIS AND SKIN TEARS PRESENT. PUREWICK PLACED THIS SHIFT. DR MONTES ROUNDED, NO NEED FOR INTERVENTIONS AT THIS TIME. WILL CONTINUE TO MONITOR UNTIL REPORT TO ONCOMING NURSE.
--- NOTE | 2023-02-05 22:00 | NUR ---
ASSUMED CARE AT 1900 PT IS LYING IN BED SLEEPING AT SHIFT CHANGE BUT WOKE UP EASILY. SHE IS A/O X4 AND ABLE TO MAKE HER NEEDS KNOWN; GENERALIZED WEAKNESS NOTED. SPO2 >98% ON RA. AFEBRILE. NSR WITH RATE 70'S. SBP 80-100'S; MAP 65-75; METOPROLOL HELD TONIGHT. CLINIMIX INFUSING AT 50ML/HR; NO BM. PERITONEAL DIALYSIS OCCURING T/O THE NIGHT; PUREWICK IN PLACE FOR INCONTINENCE. POWERGLIDE TO JANE PATENT WITH DRESSING C/D/I; UBALDO PERIPHERAL IV CAUSING PAIN TO PT, NOW PULLED. SEE SHIFT ASSESSMENT FOR FULL ASSESSMENT.
--- NOTE | 2023-02-06 00:30 | NUR ---
DIALYSIS NOTE GUIDANCE AND CONTROL SYSTEM ENGINEER NURSE CONTACTED FOR CYCLER ALARMS. TROUBLE SHOOTING OVER THE PHONE DONE AND ISSUE RESOLVED.
--- NOTE | 2023-02-06 02:25 | NUR ---
UPDATE PERITONEAL DIALYSIS SHOWS COMPLETE AROUND 0. PRESSURES SOFT WITH SBP 80-90'S AND MAP 60-65; 0000 SCHEDULED MIDODRINE GIVEN. WCTM.
[2023-02-06 04:00] LABS: Hematocrit 25.4 % (33.0-51.0); Hemoglobin 8.5 g/dL (11.5-16.0); Mean Corpuscular HGB 31.6 pg (26.0-34.0); Mean Corpuscular HGB Conc 33.5 g/dL (31.5-36.5); Mean Corpuscular Volume 94 fL (80-100); Mean Platelet Volume 10.1 fL (9.1-12.4); NRBC Auto 0.9 /100 WBC (0.0-0.2); Platelet Count 317 K/mm3 (150-400); RDW Coefficient Variation 17.7 % (11.7-14.2); RDW Standard Deviation 52.3 fL (35.1-46.3); Red Blood Cell Count 2.69 M/mm3 (3.80-5.20); White Blood Cell Count 11.71 K/mm3 (4.00-11.30)
[2023-02-06 04:19] LABS: Albumin, Blood 1.4 g/dL (3.4-5.0); Anion Gap 8 mmol/L (6-16); Blood Urea Nitrogen 73 mg/dL (8-24); Bun/Creatinine Ratio 30.4 (12.0-20.0); CO2, Blood 25 mmol/L (21-32); Calcium, Blood 7.1 mg/dL (8.5-10.1); Chloride, Blood 104 mmol/L (98-108); Glomerular Filtration Rate 21 (60-); Glucose, Blood 169 mg/dL (70-99); Magnesium, Blood 1.8 mg/dL (1.6-2.4); Phosphorus, Blood 5.6 mg/dL (2.5-4.9); Potassium, Blood 4.1 mmol/L (3.5-5.5); Sodium, Blood 137 mmol/L (136-145)
[2023-02-06 05:35] LABS: BAND PERCENT MAN 1 % (0-8); BASOPHILS PERCENT MAN 0 % (0-2); EOSINOPHILS PERCENT MAN 0 % (0-6); LYMPHOCYTES ABSOLUTE MAN 0.46 K/mm3 (0.84-5.20); LYMPHOCYTES PERCENT MAN 4 % (21-46); MONOCYTES ABSOLUTE MAN 0.81 K/mm3 (0.16-1.47); MONOCYTES PERCENT MAN 7 % (4-13); MYELOCYTE ABSOLUTE MAN 0.11 K/mm3 (0.00-0.00); MYELOCYTE PERCENT MAN 1 % (0-0); SEG NEUTROPHILS PERCENT MAN 87 % (41-73); TOTAL CELLS COUNTED 100
--- NOTE | 2023-02-06 07:10 | NUR ---
END OF SHIFT SUMMARY NO ACUTE CHANGES OVER NIGHT. PT CONT TO BE A/OX4 AND ABLE TO MAKE HER NEEDS KNOWN. CONT TO BE ON RA WITH SPO2 >98%. AFEBRILE. HR 50-60'S. SBP 90-110; MAP 60-75; WHILE SLEEPING PT MAP LOWERS INTO THE 50'S BUT ONCE AWAKE WILL RETURN TO 65-70. NO BM THIS SHIFT; CLINIMIX INFUSING AT 50ML/HR. PUREWICK IN PLACE WITH 300ML URINE OUTPUT; PD FINISHED AT 0030. REPORT GIVEN TO NICOLE PRETTY.
--- NOTE | 2023-02-06 08:00 | NUR ---
INITIAL ASSESSMENT PATIENT ALERT AND ORIENTED X 4, AFEBRILE. PATIENT DENIES PAIN OR DISCOMFORT. PATIENT WEAK BUT ABLE TO MOVE ALL EXTREMITIES. PATIENT SATTING 90% AND GREATER ON RA. LUNGS CLEAR. PATIENT IN SB WITH HR IN THE 50S. SBP LOW 100S TO 1-TEENS. SCHEDULED MIDODRINE BEING GIVEN ORDERED. EDEMA TO ARMS AND LEGS NOTED. NO BM OVERNIGHT PER BASKET MENDER RN REPORT. PATIENT HAS POOR APPETITE. CLINIMIX INFUSING AT 50 MLS/ HOUR. PUREWICK IN PLACE DRAINING YELLOW COLORED URINE. SCATTERED BRUISING NOTED T/O BODY. SKIN PALE AND VERY FRAGILE. COCCYX REDDENED; MEPILEX IN PLACE. PERITONEAL DIALYSIS CATH IN PLACE TO RLQ. BED LOW, CALL LIGHT IN REACH. WILL CONTINUE TO MONITOR PATIENT FREQUENTLY THROUGHOUT SHIFT.
--- NOTE | 2023-02-06 08:00 | NUR ---
DIALYSIS NOTE CCPD TX COMPLETED PRESCRIBED. IDRAIN:[id number], TUF: NEG-116, AVG DWELL: 1:30. PT DISCONNECTED PER P&P, EFFLUENT SAMPLE COLLECTED FOR CELL COUNT ORDERED. IN & OUT FLUSHES x 3 PROVIDED WITH RETURN OF CLEAR YELLOW BLOOD TINGED EFFLUENT. PT TOLERATED PROCEDURE WELL. REPORT GIVEN TO PRIMARY RN.
--- NOTE | 2023-02-06 10:41 | NUR ---
DR. GIL CALLED AND INFORMED THAT PATIENT NOT ON ANY ANTIBIOTICS FOR HER PERITONITIS. INFORMED THAT MAPS AT WERE IN THE 60S. ORDER OBTAINED FOR MED STATUS. STATED HE WOULD LOOK INTO PATIENT'S CHART. NO OTHER ORDERS OBTAINED AT THIS TIME.
[2023-02-06 11:20] LABS: Automated BF WBC Count 0.083 K/mm3 (0-999)
[2023-02-06 11:22] LABS: Body Fluid WBC Count 83 /mm3 (0-999)
[2023-02-06 11:48] LABS: RBC Count, Body Fluid 61 /mm3 (0-0)
[2023-02-06 11:49] LABS: Gentamicin, Random 1.3 ug/Ml; Vancomycin, Random 14.7 ug/mL
[2023-02-06 12:06] LABS: Appearance, Body Fluid Clear (Clear); Color, Body Fluid L Yellow (None-Yellow); Total Cell Count, Body Fluid 3
--- NOTE | 2023-02-06 12:20 | NUR ---
PATIENT AFEBRILE. HR 50S TO 60S. MAPS 60 TO 65. NO OTHER ACUTE CHANGES TO NOTE ON AT THIS TIME. WILL CONTINUE TO MONITOR.
--- NOTE | 2023-02-06 12:29 | NUR ---
Pt sitting up more alert, very pale states she has been sleeping most of the time. Review of symptom no nausea or abdominal pain. No headache and dizziness. She is hoping to still improve. pt kps score is 30%. Will continue to stay in touch with family. Will try to speak with alone. pt very fragile. Review of pt with dialysis nurse. poor fluid exchange. will continue to monitor.
--- NOTE | 2023-02-06 14:00 | NUR ---
Received report in room from Rebekah PRETTY. Patient is awake and oriented and was a slide transfer to PCU 7 bed as she continues weakness. She is able to communicate all her needs and has a good sense of humor. She has PD port right abd. , dressing C/D/I. She has purewick in place hooked back to suction and is working. Clinimix dc'd prior to arrival. MAEW but weak. Family at bedside. called dialysis nurse and on her way in to hook back up. VSS and scout dto tele and monitor.
--- NOTE | 2023-02-06 15:42 | NUR ---
SHIFT SUMMARY PATIENT REMAINED ALERT AND ORIENTED X 4, AFEBRILE. PATIENT HAD NO COMPLAINTS OF PAIN THIS SHIFT. PATIENT LETHARGIC. PATIENT NAPPED MUCH OF THE MORNING AND HAS BEEN AWAKE WITH FAMILY THIS AFTERNOON. PATIENT HAS REMAINED WEAK. PATIENT GOT UP 2 PERSON ASSIST WITH FWW AND GAIT BELT TO CHAIR. PATIENT WORKED WITH OT AND PT. PATIENT ALMOST UNABLE TO GET BACK TO BED WITH 2 PERSON MAX ASSIST TIRED FROM WORKING WITH THERAPY. PATIENT REMAINED ON RA. PATIENT REMAINED SB TO SR. HR AND BP STABLE. MAPS LOWEST OF 59. PATIENT REMAINS ON SCHEDULED MIDODRINE. ORTHOSTATIC VS REMAINED SIMILIAR TO EACH OTHER. NO BM THIS SHIFT. PATIENT HAD ADEQUATE URINE OUTPUT. NO CHANGES TO SKIN NOTED. CLINIMIX REMAINED AT 50 MLS/ HOUR; WILL BE DC'D AFTER THIS BAG COMPLETE. PATIENT REFUSED BEDBATH. FAMILY IN THIS AFTERNOON. PATIENT TO BE TRANSFERRING TO PCU SHORTLY.
--- NOTE | 2023-02-06 16:12 | NUR ---
PATIENT TRANSFERRED TO PCU, ROOM 07. ALL BELONGINGS SENT WITH PATIENT. TRANSFER COMPLETE.
--- NOTE | 2023-02-06 18:10 | NUR ---
Dialysis is here hooking her up for PD, they will run her all night. . She is sitting up eating dinner independently and family at bedside that are leaving now for the day. VSS. Rebekah in place. She remains on RA and sats >90%.
--- NOTE | 2023-02-06 19:02 | NUR ---
DIALYSIS-PD: To patient room in U07. Patient in bed, alert and oriented x4. family at bedside. No c/o dyspnea or abdominal pain. BUE edema noted. Dialysis cycler set up per protocol. Patient to run 6.5 hours with 3 exchanges of 1600 ml and last fill of 1500 ml with Vancomycin 750mg and Gentamycin 20 mg. Dwell time of 107 minutes. PD catheter dressing is clean,dry and intact. Patient connected to cycler and treatment started and running without problems. Report given to primary RN.
--- NOTE | 2023-02-06 22:23 | NUR ---
DR MONTES AT BEDSIDE ABOUT 1944 DR. MONTES CAME AND TALKED TO THE PT ABOUT HER D/C'ING TO A ASSITED LIVING OR JAIL FACILITY FOR A FEW WEEKS TO MONITOR VS AND BLEEDS. HE PLANS TO DISCUSS IT MORE WITH THE HOSPITALIST TEAM ON DAYS SO THEY CAN FIND A SUITABLE PLACEMENT THAT CAN SUPPORT HER NIGHTLY PD TREATMENTS. PT IS UNDERSTANDING AND THINKS IT IS A GOOD IDEA AT THIS TIME AND WOULD LIKE MORE INFORMATION.
[2023-02-07 03:43] LABS: Hematocrit 25.1 % (33.0-51.0); Hemoglobin 8.3 g/dL (11.5-16.0)
[2023-02-07 04:20] LABS: Magnesium, Blood 1.8 mg/dL (1.6-2.4)
[2023-02-07 04:21] LABS: Albumin, Blood 1.6 g/dL (3.4-5.0); Anion Gap 8 mmol/L (6-16); Blood Urea Nitrogen 71 mg/dL (8-24); Bun/Creatinine Ratio 30.5 (12.0-20.0); CO2, Blood 25 mmol/L (21-32); Calcium, Blood 7.2 mg/dL (8.5-10.1); Chloride, Blood 108 mmol/L (98-108); Creatinine, Blood 2.33 mg/dL (0.40-1.00); Glomerular Filtration Rate 21 (60-); Glucose, Blood 161 mg/dL (70-99); Phosphorus, Blood 4.9 mg/dL (2.5-4.9); Potassium, Blood 3.8 mmol/L (3.5-5.5); Sodium, Blood 141 mmol/L (136-145)
--- NOTE | 2023-02-07 04:53 | NUR ---
SHIFT SUMMARY PT IS A&OX4; DENIES ANY N/V/D, PAIN, SOB, ANGINA, OR PAIN; CAN MOVE A MINIMAL AMOUNT IND IN BED; CALLS APPROPRIATELY; HAS BEEN ROOM AIR W/ SP02 >95; SHE HAS BEEN SB/SR 50'5-70'5 ON TELE; AND PT IS ON MIDODRINE FOR SOFT BP'S. SHE HAD HER NIGHTLY PD TREATMENT AND HAS BEEN ABLE TO SLEEP MOST OF THE NIGHT. HER BED IS IN LOW, AND CALL LIGHT IS IN REACH. I WILL CONTINUE TO MONITOR UNTIL SHIFT REPORT IS GIVEN TO THE ONCOMING SHIFT RN. SEE NOTES FOR ANY UPDATES.
[2023-02-07 07:11] LABS: Body Fluid WBC Count 10 /mm3 (0-999)
--- NOTE | 2023-02-07 07:26 | NUR ---
DIALYSIS NOTE CCPD TX COMPLETED PRESCRIBED. IDRAIN:167, TUF: 123, AVG DWELL: 1:31. PT DISCONNECTED PER P&P, EFFLUENT SAMPLE COLLECTED FOR CELL COUNT ORDERED. IN & OUT FLUSHES x 3 PROVIDED WITH RETURN OF CLEAR YELLOW BLOOD TINGED EFFLUENT. PT TOLERATED PROCEDURE WELL. REPORT GIVEN TO PRIMARY RN.
[2023-02-07 07:28] LABS: Gentamicin, Random 1.4 ug/Ml; Vancomycin, Random 19.8 ug/mL
[2023-02-07 07:43] LABS: RBC Count, Body Fluid 31 /mm3 (0-0)
[2023-02-07 08:00] LABS: Total Cell Count, Body Fluid 3
[2023-02-07 08:02] LABS: Appearance, Body Fluid Clear (Clear); Color, Body Fluid L Yellow (None-Yellow)
--- NOTE | 2023-02-07 14:10 | NUR ---
DIALYSIS-PD: To patient room in U to start CCPD therapeutic day. Patient in bed, alert and oriented, in good mood. Family present at bedside. Patient has no complain of dyspnea or abdominal pain. Dialysis cycler set up per orders and protocol. Patient to run 8 hours and 10 minutes with 5 exchanges of 1600 ml and last fill of 1500 ml with 20 mg gentamicn IP. Dwell time of 76 minutes. PD catheter dressing changed with no signs or symptoms of infection noted. Patient connected to cycler and treatment running without problems. Report given to primary RN.
--- NOTE | 2023-02-07 14:25 | NUR ---
CASE CONF WITH RN, NO ACUTE NEEDS AND PT IS RESTING COMF WITH FAMILY IN ROOM. PT IS TIRED FROM THERAPY EARLIER TODAY. MET WITH PT AND FAMILY IN ROOM, FAMILY JUST ARRIVED PRIOR TO THIS RN ENTERING THE ROOM AND REPORTS PT TOLD THEM SHE IS BEING DCD TODAY. THEY ARE CONCERNED THAT SHE IS NOT READY TO BE DCD AND WERE UNAWARE THAT THIS WAS THE PLAN. ADVISED THAT THIS WAS NOT MY UNDERSTANDING, CM WAS LOOKING FOR PLACEMENT AT SNF FRO REHAB OR PT WAS TO BE DCD HOME WITH HH-BUT NOT TODAY. ADVISED I WILL TALK TO THE CARE TEAM AND FOLLOW UP, THEY VU. CASE CONF WITH DR GIL, HE REPORTS THAT HE DOESNT FEEL PT IS MEDICALLY STABLE FOR DC TODAY AND IS STILL WAITING FOR RECOMENDATIONS FROM CARDIOLOGY AND NEPHROLOGY. RECOMENDS TO TALK TO THE CN. CASE CONF WITH CN, SHE REPORTS SHE HAS NO KNOWLEDGE OF PT BEING DCD TODAY SHE IS NOT MEDICALLY STABLE. FOLLOWED UP WITH PT AND FAMILY IN ROOM AND UPDATED THEM THAT THERE IS NOT A DC PLAN FOR TODAY AND IT IS UNCLEAR WHERE THIS MESSAGE CAME FROM. WE DID DISCUSS WHAT THEIR PLANS ARE FOR DC. PT SPOUSER HAS EXPRESSED THAT HE CANNOT CARE FOR THE PT AT HOME WITH HER BEING THIS WEAK. THEY ARE OPEN TO SNF FOR REHAB/PT ON A DAILY BASIS VS HOME WITH HH & PT. WE DISCUSSED THE CURRENT BARRIER OF PT NEED FOR PERITONEAL DIALYSIS AND LOCAL SNF ARE NOT ABLE TO PROVIDE THAT LEVEL OF CARE. SPOUSE AND PT VERBALIZE THAT IT WOULD NOT BE IDEAL, BUT THEY ARE OPEN TO GOING OUT OF TOWN FOR SNF/REHAB. PT SISTER VERBALIZES THAT THERE MAY BE A FACILITY AT THE [facility] THAT CAN PROVIDE REHAB AND ACCOMODATE THE DIALYSIS. ADVISED I WILL F/UP WITH CM TO SEE WHAT REFERRALS HAVE BEEN SENT AND WHAT OPTIONS ARE AVIALABLE FOR SNF/DC PLAN. CASE CONF WITH ALEM PICHARDO, WE HAVE NOT HAD ANY SUCCESS WITH SNF OR SWING BED REFERRALS AT THIS TIME. SNF CANNOT ACCOMODATE ADMINISTERING PERITONEAL DIALYSIS AND SHUTTLELESS LOOM WE[employer]ER CANNOT COME INTO FACILITY TO ADMINISTER TREATMEN. WE DISCUSSED IF PT WOULD MEET CRITERIA FOR [facility] AND SHE WILL SEND A REFERRAL. WILL CONTINUE TO MONITOR CASE DAY BY DAY AND SUPPORT PT AND FAMILY.
--- NOTE | 2023-02-07 18:10 | NUR ---
PT SUMMARY: PT HAS BEEN ALERT AND ORIENTED AT BASELINE. HRR SR 50-60'S, BP SYSTOLIC 90-110'S, SATS ABOVE 95% ON RA, AFEBRILE. PERITONEAL DIALYSIS PORT ON R SIDE OF ABDOMEN WITH DRESSINGS CDI NO S/S OF INFECTION, PERITONEAL DIALYSIS TX PER TRAUMA SURGEON. PT WITH BACK PAINS RELIEVED BY REPOSITIONING. PT DENIES CHEST PAIN/PRESSURE. PT WITH GOOD APPETITE FOR THE SHIFT. PUREWICK IN PLACE DRAINING YELLOW URINE. FAMILY WAS IN TO VISIT AWARE OF THE PLAN OF CARE, DR MONTES CAME AND SAW PT TODAY NO ORDERS RECEIVED. PT WORKED WITH PT/OT WELL TOLERATED WELL, BED BATH COMPLETED FOR THE SHIFT. NO OTHER ISSUES ENCOUNTERED FOR THE SHIFT, PT ABLE TO MAKE NEEDS KNOWN, WILL REPORT TO ONCOMING SHIFT
[2023-02-08 04:23] LABS: Hematocrit 27.3 % (33.0-51.0); Hemoglobin 8.7 g/dL (11.5-16.0)
[2023-02-08 04:41] LABS: Albumin, Blood 1.7 g/dL (3.4-5.0); Anion Gap 5 mmol/L (6-16); Blood Urea Nitrogen 71 mg/dL (8-24); Bun/Creatinine Ratio 31.1 (12.0-20.0); CO2, Blood 27 mmol/L (21-32); Calcium, Blood 7.3 mg/dL (8.5-10.1); Chloride, Blood 105 mmol/L (98-108); Creatinine, Blood 2.28 mg/dL (0.40-1.00); Glomerular Filtration Rate 22 (60-); Glucose, Blood 147 mg/dL (70-99); Magnesium, Blood 1.9 mg/dL (1.6-2.4); Phosphorus, Blood 4.9 mg/dL (2.5-4.9); Potassium, Blood 3.6 mmol/L (3.5-5.5); Sodium, Blood 137 mmol/L (136-145)
--- NOTE | 2023-02-08 05:00 | NUR ---
SHIFT SUMMARY PT A&OX4, PD TREATMENT IS FINISHED, PT HAS DENIED ANGINA, N/V/D, PAIN, AND SOB. PT HAD NO ACUTE CHANGES THIS SHIFT. BP HAS BEEN STABLE W/ MIDODRINE, AND PT HAS BEEN SB/SR 50'S-70'S ON TELEMETRY. BED IS IN A LOW POSITION AND CALL LIGHT IS IN REACH. I WILL CONTINUE TO MONITOR UNTIL SHIFT REPORT IS GIVEN TO THE ONCOMING SHIFT RN. SEE NOTES FOR ANY UPDATES.
--- NOTE | 2023-02-08 07:08 | NUR ---
DIALYSIS-PD: Patient in bed, alert and oriented. No s/sx of distress. Patient run full cycler treatment without problems. Patient disconnected from cycler at 0615, effluent sample collected, line recapped per protocol. Cycler cleaned off. Initial Drain = 208 ml, total net UF = 485 ml, effluent clear.
--- NOTE | 2023-02-08 07:24 | NUR ---
DDIALYSIS-PD: DIALYSIS CYCLER SET UP FOR IN AND OUT FLUSHES. PATIENT TO RUN FOR 1 HOUR 20M MIN WITH 3 EXCHANGES OF 1500 ML AND 0 LAST FILL. DWELL TIME 7 MINUTES. PATIENT CONNECTED TO [employer] AND TREATMENT STARTED AND RUNNING WITHOUT PROBLEMS
[2023-02-08 08:44] LABS: Automated BF WBC Count 0.006 K/mm3 (0-999)
[2023-02-08 08:47] LABS: Body Fluid WBC Count 6 /mm3 (0-999)
[2023-02-08 08:54] LABS: RBC Count, Body Fluid 11 /mm3 (0-0)
[2023-02-08 09:03] LABS: Total Cell Count, Body Fluid 2
[2023-02-08 09:04] LABS: Appearance, Body Fluid Clear (Clear); Color, Body Fluid L Yellow (None-Yellow)
[2023-02-08 09:48] LABS: Gentamicin, Random 1.2 ug/Ml; Vancomycin, Random 14.8 ug/mL
--- NOTE | 2023-02-08 15:45 | NUR ---
Spiritual Care Visit. Pt. is awake and sitting in her recliner. Family and friends are present when Pt. welcomes my visit. Pt. is pleasant, but displays some evidence of being weak. Pt. verbalized anticipation of moving to [facility]. Listen with empathy and a calming presence. Facilitated a life review and re-established rapport. Pt. displays evidence of being aware and engaged. Prayed with Pt. and Pt. verbalized gratitude for the spiritual care visit.
--- NOTE | 2023-02-08 18:42 | NUR ---
PT SUMMARY: PT WORKED WITH PT THIS MORNING GOT UP IN THE RECLINER HAD EPISODES OF DIZZINESS BP WENT DOWN TO 80'S SYSTOLIC THEN WENT UP TO 110'S WHEN PT WAS SITUATED IN THE RECLINER WITH LEGS ELEVATED AND STARTED FEELING MUCH BETTER. PT STAYED IN THE RECLINER MOST OF THE SHIFT, FAMILY CAME IN TO VISIT, FINALLY MADE A DECISION TO GET PD PORT OUT AND START PT ON HEMODIALYSIS, DR VERAS WAS CONSULTED. THE REST OF THE VTIALS HAS BEEN STABLE. PT DENIES ANY CHEST PAIN. PERITONEAL DIALYSIS ONGOING AT THIS TIME TO RUN OVER NIGHT UNTIL 7AM. NO OTHER ISSUES ENCOUNTERED. WILL REPORT TO ONCOMING SHIFT
--- NOTE | 2023-02-08 18:52 | NUR ---
DIALYSIS-PD: To patient room in U07 to start overnight PD treatment. Patient is alert and oriented x4, up in chair. Patient has no complain of dyspnea or abdominal pain. BUE edema noted. Dialysis cycler set up per protocol. Patient to run 8 hours and 10 mins with 5 exhanges of 1600 ml and last dwell of 1500 ml with 750 mg Vancomycin and 20 mg Gentamicin. Dwell time of 76 minutes. PD catheter dressing is CDI. Patient connected to cycler and treatment started and running without problems. Report given to primary RN.
[2023-02-09 04:23] LABS: Albumin, Blood 1.8 g/dL (3.4-5.0); Anion Gap 7 mmol/L (6-16); Blood Urea Nitrogen 66 mg/dL (8-24); Bun/Creatinine Ratio 30.3 (12.0-20.0); CO2, Blood 24 mmol/L (21-32); Calcium, Blood 7.4 mg/dL (8.5-10.1); Chloride, Blood 108 mmol/L (98-108); Creatinine, Blood 2.18 mg/dL (0.40-1.00); Glomerular Filtration Rate 23 (60-); Glucose, Blood 165 mg/dL (70-99); Magnesium, Blood 1.8 mg/dL (1.6-2.4); Phosphorus, Blood 4.2 mg/dL (2.5-4.9); Potassium, Blood 3.4 mmol/L (3.5-5.5); Sodium, Blood 139 mmol/L (136-145)
--- NOTE | 2023-02-09 04:49 | NUR ---
SHIFT SUMMARY NO ACUTE CHANGES OVER NIGHT. PT IS A&OX4, 2P MAX ASSIST FOR TX, HAS A PW FOR INCONTINENCE, Q2 HR TURN (SHE DOES REPOSITION HER SELF SOMETIMES, DEPENDING ON MOTIVATION/STRENGTH), HAS BEEN SR 60'S-70'S ON TELE, BP HAS BEEN STABLE ON MIDODRINE, AND PT HAS HAD NO COMPAINTS. HER PD TREATMENT RAN LAST NIGHT AND IS NOW DONE. SHE HAS BEEN NPO SINCE 000O FOR A POSSIBLE PROCEDURE FOR A HD CATH. BED IS IN LOW, CALL LIGHT IS IN REACH, AND I WILL CONTINUE TO PROVIDE CARE UNTIL SHIFT REPORT IS GIVEN TO THE ONCOMING SHIFT RN. SEE NOTES FOR ANY UPDATES.
[2023-02-09 04:56] LABS: Hematocrit 27.8 % (33.0-51.0); Hemoglobin 8.8 g/dL (11.5-16.0)
--- NOTE | 2023-02-09 07:31 | NUR ---
Bedside report received from SUKHWINDER Benson. The pt is awake, alert and oriented. Denies nausea, pain, dyspnea, discomfort, or any needs. States she would like to get up to chair again today; says she spent "all day" yesterday in the chair. Wendywick noted in place, with yellow urine in the collection canister. Peritoneal dialysis catheter still attached, completed. Dr. Saleem said that Dr. Wallace will evaluate the pt today for hemodialysis catheter placement.
--- NOTE | 2023-02-09 07:46 | NUR ---
Dr. Saleem states that Dr. Wallace knows about the HD catheter needed, and is aware of the consultation request. Pt is NPO.
[2023-02-09 09:41] LABS: Automated BF WBC Count 0.006 K/mm3 (0-999)
--- NOTE | 2023-02-09 09:44 | NUR ---
DIALYSIS-PD: PATIENT IN BED SLEEPING. NO SIGNS OR SYMPTOMS OF DISTRESS. OVERNIGHT CCPD COMPLETED ORDERED. ASEPTICALLY DISCONNECTED, COLLECTED EFFLUENT SAMPLE AND CAPPED. CYCLER STRIPPED AND CLEANED. MD CONSULTED FOR NEW ORDERS/PLAN OF CARE. INITIAL DRAIN= 89 ML, CDM=755, AVG DWELL TIME= 1:00
[2023-02-09 09:45] LABS: Body Fluid WBC Count 6 /mm3 (0-999)
--- NOTE | 2023-02-09 09:55 | NUR ---
DILAYSIS-PD: DIALYSIS CYCLER SET UP FOR IN AND OUT FLUSHES X 3. PATIENT HAS NO COMPLAINS OF DYSPNEA OR ABDOMINAL PAIN. PATIENT TO RUN 1 HOURS 20 MINS WITH 3 EXCHANGES OF 1500 ML AND O LAST FILL. DWELL TIME OF 7 MINUTES. PD CATHETER DRESSING CHANGED WITH NO SIGNS OR SYMPTOMS OF INFECTION NOTED. PATIENT CONNECTED TO [employer] AND TREATMENT STARTED AND RUNNING WITHOUT PROBLEMS.
[2023-02-09 10:26] LABS: RBC Count, Body Fluid 11 /mm3 (0-0)
[2023-02-09 10:28] LABS: Gentamicin, Random 1.1 ug/Ml; Vancomycin, Random 18.9 ug/mL
[2023-02-09 10:43] LABS: Total Cell Count, Body Fluid 7
[2023-02-09 10:44] LABS: Appearance, Body Fluid Clear (Clear); Color, Body Fluid No color (None-Yellow)
--- NOTE | 2023-02-09 17:34 | NUR ---
PD RN TO PHARMACY AT APPROX 1630 TO PROGRAM MANAGEMENT SPECIALIST PAGS OF DIALYSATE FOR NIGHT CCPD TX. TO PT RM PCU07 AT APPROX 1640 TO CONNECT THE MACHINE AND PREPARE FOR NIGHT TX. PT WAS SITTNG UP IN CHAIR AT BEDSIDE VISITING WITH FAMILY WHEN I CAME IN THE ROOM. SHE WAS VERY PLESENT AND SEEMED TO BE COMFORTABLE. I CONENCTED HER TX AT APPROX 1720 AND LEFT THE ROOM. PT CALL LIGHT WAS WITHIN REACH WHEN I LEFT THE ROOM. 2.5% DIANEAL WAS USED AND A ANTIBIOTIC LAST FILL. TOTAL TREATMENT TIME IS 8 HOURS AND 10 MINUTES AND A TOTAL FILL VOLUME OF 9,500.
[2023-02-10 04:09] LABS: Hematocrit 29.2 % (33.0-51.0); Hemoglobin 9.1 g/dL (11.5-16.0)
[2023-02-10 04:40] LABS: Magnesium, Blood 1.7 mg/dL (1.6-2.4)
[2023-02-10 04:45] LABS: Albumin, Blood 1.9 g/dL (3.4-5.0); Anion Gap 6 mmol/L (6-16); Blood Urea Nitrogen 61 mg/dL (8-24); Bun/Creatinine Ratio 28.1 (12.0-20.0); CO2, Blood 25 mmol/L (21-32); Calcium, Blood 7.7 mg/dL (8.5-10.1); Chloride, Blood 107 mmol/L (98-108); Creatinine, Blood 2.17 mg/dL (0.40-1.00); Glomerular Filtration Rate 23 (60-); Glucose, Blood 161 mg/dL (70-99); Phosphorus, Blood 3.9 mg/dL (2.5-4.9); Potassium, Blood 3.5 mmol/L (3.5-5.5); Sodium, Blood 138 mmol/L (136-145)
--- NOTE | 2023-02-10 08:50 | NUR ---
CONFIRMED ALLERGIES WITH PATIENT AND UPDATED ALLERGY LIST ACCORDINGLY.
--- NOTE | 2023-02-10 08:56 | NUR ---
ORDER FOR CARDIOLOGY CONSULT PLACED PER ORDER BY DR CAMPOS, DR CHAUDHARI, [facility] TEXTILE CHEMIST HERE AT BEDSIDE CONSULTING.
--- NOTE | 2023-02-10 09:38 | NUR ---
CONTINOUS TELEMETRY REMOVED FOR SURGERY. PCU LEAD RECOVERER NOTIFIED.
--- NOTE | 2023-02-10 10:04 | NUR ---
CARE ASSUMPTION THIS RN ASSUMED CARE AT 0700. VITAL SIGNS STABLE. PATIENT REPORTS NO PAIN. PATIENT REPORTS NO CHEST PAIN/PRESSURE. PATIETN REPORTS NO SHORTNESS OF BREATH. PATIENT IS ALERT AND ORIENTED X4. PATIENT IS ABLE TO MAKE NEEDS KNOWN. PATIENT LEFT FOR OR AT AROUND 0815. PLAN OF CAARE IS UP TO DATE.
--- NOTE | 2023-02-10 10:18 | NUR ---
DIALYSIS-PD PT AWAKE AND ALERT. SAYS SHE FEELS FINE. 0730 DCED PT FROM PD TX PER PROTOCAL, UF 359 ML, ID [id number] ML. SITE CLEAR. PT TAKEN TO SURGERY TO HAVE A CVC PLACED.
--- NOTE | 2023-02-10 11:30 | NUR ---
PT FAMILY SITTING IN OR WAITING AREA, STOPPED TO MAKE A SUPPORTIVE VISIT. PT SISTER ADVISED PT WAS IN THE OR HAVING A DIALYSIS CATH PLACED AND IS GOIGN TO TRY PERIPHERAL DIALYSIS. SHE REPORTS THEY DECIDED TO GO THIS ROUTE THEY WERE UNABLE TO GET HER INTO A SKILLED FACILITY WITH THE PERITONEAL DIALYSIS AND COULDNT RISK ANOTHER INFECTION. PROVIDED EMOTIONAL SUPPORT, LISTENED TO THEY CONCERNS. ADVISED THAT PALLIATIVE CARE WILL CONTINUE TO FOLLOW AND OFFER SUPPORT.
[2023-02-10 14:36] LABS: Gentamicin, Random 1.2 ug/Ml; Vancomycin, Random 15.4 ug/mL
--- NOTE | 2023-02-10 16:06 | NUR ---
PD RN TO PT RM PCU07 AT APPROX 1545 TO SET UP MACHINE FOR IN AND OUT FLUSHES X3 TREATMENT. MACHINE PRIMING AND READY AT APPROX 1610. READY FOR CONNECTION AT 1625. TOTAL VOLUME OF 4500, WITH 3 CYCLES OF 1500ML. PT VISITING WITH FAMILY. NO COMPLAINTS. WILL RETURN TO CONNECT NIGHT TX.
--- NOTE | 2023-02-10 16:31 | NUR ---
UPDATE PD DIALYSIS STARTED FROM DIALYSIS NURSE. PATIENT DID NOT HAVE HD PLACEMENT, SEE OPERATIVE NOTE FOR FURHTER INFORMATION. PATIENT VITALS HAVE BEEN STABLE SINCE PROCEDURE. PATIENT HAD A FULL BED BATH AND LINEN CHANGE. FAMILY AT BEDSIDE MAJORITY OF THE DAY. CALL LIGHT WITHIN REACH.
--- NOTE | 2023-02-10 17:34 | NUR ---
SHIFT SUMMARY patient neuro remains unchanged. vital signs remain stable. patient uses call light appropriately. no acute changes. call light within reach andbed in lowest position with alarm on.
--- NOTE | 2023-02-10 18:05 | NUR ---
PD RN TO PT RM PCU07 AT APPROX 1730 TO DISCONNECT IN AND OUT FLUSHES TREATMENT AND PREPARE MACHINE AND HOOK PT UP TO CCPD NIGHT TX. I DRAIN WAS 715ML, TOTAL UF WAS 194ML. PT WAS VISITING WITH FAMILY WHEN I ENTERED AND EATING DINNER.
--- NOTE | 2023-02-10 18:07 | NUR ---
PD RN TO PRT RM PCU07 AT APPROX 1530 TO DIC INM AND OUT FLUSHES. MACHINE SETUP FOR CCPD NIGHT TREATMENT. PT CONNECT TO TX AT APPROX 1820. LEFT PT IN ROOM WITH BED AT LOWEST SETTING, CALL LIGHT IN REACH, BEDSIDE RN NOTIFIED.
[2023-02-11 04:30] LABS: Hematocrit 27.9 % (33.0-51.0); Hemoglobin 8.9 g/dL (11.5-16.0)
[2023-02-11 04:49] LABS: Albumin, Blood 1.8 g/dL (3.4-5.0); Anion Gap 6 mmol/L (6-16); Blood Urea Nitrogen 60 mg/dL (8-24); Bun/Creatinine Ratio 26.3 (12.0-20.0); CO2, Blood 28 mmol/L (21-32); Calcium, Blood 7.7 mg/dL (8.5-10.1); Chloride, Blood 103 mmol/L (98-108); Creatinine, Blood 2.28 mg/dL (0.40-1.00); Glomerular Filtration Rate 22 (60-); Glucose, Blood 187 mg/dL (70-99); Magnesium, Blood 1.8 mg/dL (1.6-2.4); Phosphorus, Blood 4.4 mg/dL (2.5-4.9); Potassium, Blood 3.4 mmol/L (3.5-5.5); Sodium, Blood 137 mmol/L (136-145)
--- NOTE | 2023-02-11 06:38 | NUR ---
SHIFT SUMMARY A/OX4, GENEARLIZED WEAKNESS NOTED. 2P ASSIST. INCONT, ATTENDS AND PUREWICK IN PLACE. SPO2 >92% ON RA. PD COMPLETED THIS SHIFT. TELE SB/SR 50S-60S. VSS, BED IN LOWEST POSITION WITH CALL LIGHT IN REACH. WILL CONTINUE TO MONITOR AND REPORT TO ONCOMING RN.
--- NOTE | 2023-02-11 09:06 | NUR ---
DIALYSIS-PD PT SLEEPING WHEN I ENTERED THE ROOM. SHE IS VERY CONCERNED ABOUT NOT BE ABLE TO DO DIALYSIS IN [place]. PT HAS HUGE FAMILY SUPPORT THAT IS AFRAID OF LOSING. ASKED ME IF I WOULD BE WILLING TO COME AND DO HER TX AT HOME. DCED TX PER PRTOTOCAL. ID [id number] ML. UF [id number] ML. SITE CLEAR, DRESSING ON. PD FLUID CLEAR.
--- NOTE | 2023-02-11 09:38 | NUR ---
CARE ASSUMPTION This RN assumed care at 0700. vital signs stable. tele sr 60s. patient is alert and oriented x4. perrla. patient reports no pain. patient reports no chest pain/pressure. patient reports no shortness of breath. patient skin has bruising throughout and is fargile. PD in right abd that is managed by dialysis. see shift assessment for further detials. patient got up into to chair this morning to eat breakfast. call light is within reach. plan of care is up to date.
[2023-02-11 09:58] LABS: Automated BF WBC Count 0.009 K/mm3 (0-999)
[2023-02-11 10:00] LABS: Body Fluid WBC Count 9 /mm3 (0-999)
[2023-02-11 10:18] LABS: Gentamicin, Random 1.2 ug/Ml
[2023-02-11 10:28] LABS: RBC Count, Body Fluid 15 /mm3 (0-0)
[2023-02-11 11:00] LABS: Appearance, Body Fluid Clear (Clear); Color, Body Fluid No color (None-Yellow); Total Cell Count, Body Fluid 11
[2023-02-11 11:10] LABS: HBSAG SCREEN Negative (Negative); HCV AB Non Reactive (Non Reactive); HEP A AB, IGM Negative (Negative); HEP B CORE AB, IGM Negative (Negative)
--- NOTE | 2023-02-11 14:33 | NUR ---
PD RN TO PT PCU 07 AT APPROX 1410 TO SET UP MACHINE FOR IN AND OUT FLUSHES X3 TREATMENT. MACHINE PRIMED AND PROGRAMMED WITH 1.5% DIANEAL WITH 1000UNITS OF HEPARIN PER LITER INFUSED BY THE PHARMACY. THERAOPY TIME IS 1:20, TOTAL VOLUME IS 4500ML WITH 3 CYCLES OF 1500ML, LAST FILL OF 0. WHEN I ENTERED THE RM PT WAS SITTING IN [place] WITH PHYSICAL THERAPY AT THE CHAIRSIDE HELPING HER WITH SOME EXERCISE. SHE HAD FAMILY PRESENT IN THE ROOM THROUGHOUT THE PROCEDURE INITIATION. MACHINE FINISHED PRIMING AND PT CONNECTED AT 1445. WILL BE BACK TO DISCONENCT AND START EVENING CCPD TREATMENT. CALL LIGHT IN REACH.
--- NOTE | 2023-02-11 17:20 | NUR ---
SHIFT SUMMARY patient neuro remains intact. vital signs stable. patient has sat in the chair by the bedside all day with repositions in the chair. patient worked with physical therapy today. patient is med status no tele. patient has purwick in place with frequent checks to ensure it is working properly. no acute changes. call light within reach. patient family at bedside. plan of care is up to date.
--- NOTE | 2023-02-11 18:39 | NUR ---
pd rn to pt rm pcu07 at approx 1800 to d/c in and out flushes treatment. pt was sitting up in her chair watching tv at her bedside. she was quiet this evening, said dinner was not very good, and company went home. machine set back up for eveing ccpd treatmnet. in and out flushes effluent was clear and tinted pale yellow, the total uf was 79 ml and i drain was 1304.
--- NOTE | 2023-02-11 18:43 | NUR ---
pd rn to pt rm pcu 07 at approx 1600 to d/c in and out flushes, strip machine and reeset up and reprogram machine for eveing ccpd treatment. machine completed priming and pt was connect at 1845. pt left sitting up in chair watching tv with chair locked in place and call light within reach. dressing was changed and cath site was wnl. treatmnet initiated per protocol.
[2023-02-12 03:33] LABS: Hemoglobin 9.8 g/dL (11.5-16.0)
[2023-02-12 03:51] LABS: Albumin, Blood 1.7 g/dL (3.4-5.0); Anion Gap 5 mmol/L (6-16); Blood Urea Nitrogen 58 mg/dL (8-24); Bun/Creatinine Ratio 24.5 (12.0-20.0); CO2, Blood 28 mmol/L (21-32); Calcium, Blood 7.6 mg/dL (8.5-10.1); Chloride, Blood 107 mmol/L (98-108); Creatinine, Blood 2.37 mg/dL (0.40-1.00); Glomerular Filtration Rate 21 (60-); Glucose, Blood 130 mg/dL (70-99); Magnesium, Blood 1.8 mg/dL (1.6-2.4); Phosphorus, Blood 3.7 mg/dL (2.5-4.9); Potassium, Blood 3.2 mmol/L (3.5-5.5); Sodium, Blood 140 mmol/L (136-145)
--- NOTE | 2023-02-12 06:14 | NUR ---
SHIFT SUMMARY ASSUMED CARE OF PT AT 1900. PT IS A/OX4. HEART SOUNDS REGULAR. LUNG SOUNDS DIMINISHED. PT WAS A 1P SBA WITH WALKER AND GAITBELT TO BED. PT STATED DIZZINESS WITH TRANSFER. NO ACUTE EVENTS, PT RECEIVED PERITONEAL DIALYSIS T/O THE NIGHT.
[2023-02-12 09:12] LABS: Gentamicin, Random 1.1 ug/Ml; Vancomycin, Random 16.9 ug/mL
--- NOTE | 2023-02-12 09:35 | NUR ---
DIALYSIS NOTE CCPD TX COMPLETED PRESCRIBED. IDRAIN:73, TUF: 365, AVG DWELL: 1:06. PT DISCONNECTED PER P&P. IN & OUT FLUSHES x 3 PROVIDED WITH RETURN OF CLEAR YELLOW. PT TOLERATED PROCEDURE WELL. REPORT GIVEN TO PRIMARY RN.
--- NOTE | 2023-02-12 16:13 | NUR ---
PD RN TO PT ROOM PCU07 AT APPROX 1600 TO SET UP MACHINE AND CONNECT PT TO NIGHT CCPD TREATMENT. WHEN I GOT TO THE ROOM SHE WAS RESTING WITH HER EYES SHUT, SHE HAD 3 FAMILY MEMBERS PRESENT IN THE ROOM WITH HER. HER ENERGY LEVEL SEEMS TO HAVE DECREASED IN THE LAST 24 HOURS, LAST NIGHT AND TODAY SHE APPEAERS TO BE EXHAUSTED FROM PHYSICAL THERAPY AND ALL THE EVENTS OVER THE LAST FEW DAYS. MACHINE DONE AND FINISHED PRIMNING AND PT CONNECTED TO CCPD NIGHT TREATMENT AT APPROX 1630. LEFT PT IN BED AT LOWEST SETTING WITH CALL LIGHT WITHIN REACH.
--- NOTE | 2023-02-12 17:46 | NUR ---
SHIFT SUMMARY; ASSUMED CARE AT 0700. A/A/OX4 DURING SHIFT. PEROTINEAL DIALYSIS COMPLETED. REPOSITIONS SELF WITH ASSITANCE AND REMINDERS, FLOATED ON PILLOWS T/O DAY. FAMILY AT BEDSIDE, VSS, NO ACUTE MEDICAL CHANGES, WILL CONTINUE TO MONITOR AND TREAT UNTIL CHANGE OF SHIFT.
[2023-02-13 04:58] LABS: Hematocrit 32.8 % (33.0-51.0); Hemoglobin 10.1 g/dL (11.5-16.0)
--- NOTE | 2023-02-13 05:01 | NUR ---
SHIFT SUMMARY PT A&Ox4, CALLS AND COMMUNICATES NEEDS APPROPRIATELY. BP MD CHRISTIANO AWARE, MANAGING PER EMAR. HR 60's, PT NOT ON TELE, DENIES CP/PRESSURE. SpO2> 92% ACUNAINES SOB. PD RAN THROUGHOUT SHIFT WITH NO COMPLICATIONS. PUREWICK IN PLACE THROUGHOUT SHIFT, CHANGED CANISTER, TUBING, AND PUREWICK. ATTENDS IN PLACE. NO BM THIS SHIFT. PT STATED THAT SHES VERY TIRED THIS SHIFT AND HAS SLEPT PEACEFULLY. NO OTHER EVENTS, WILL REPORT TO ONCOMING RN.
[2023-02-13 05:36] LABS: Albumin, Blood 1.7 g/dL (3.4-5.0); Anion Gap 4 mmol/L (6-16); Blood Urea Nitrogen 52 mg/dL (8-24); Bun/Creatinine Ratio 23.6 (12.0-20.0); CO2, Blood 29 mmol/L (21-32); Calcium, Blood 7.6 mg/dL (8.5-10.1); Chloride, Blood 107 mmol/L (98-108); Glomerular Filtration Rate 23 (60-); Glucose, Blood 110 mg/dL (70-99); Magnesium, Blood 1.7 mg/dL (1.6-2.4); Phosphorus, Blood 3.7 mg/dL (2.5-4.9); Potassium, Blood 3.4 mmol/L (3.5-5.5); Sodium, Blood 140 mmol/L (136-145)
--- NOTE | 2023-02-13 08:11 | NUR ---
DIALYSIS NOTE CCPD TX COMPLETED PRESCRIBED. IDRAIN:982, TUF: 543, AVG DWELL: 1:07. PT DISCONNECTED PER P&P. PT TOLERATED PROCEDURE WELL. REPORT GIVEN TO PRIMARY RN.
--- NOTE | 2023-02-13 16:04 | NUR ---
REPORT GIVEN TO MEDICAL FLOOR RN TO ASSUME CARE.
--- NOTE | 2023-02-13 16:28 | NUR ---
PD RN IN AT APPROX 15:00 TO PREPARE TO CONNECT PT TO CCPD EVENING TREATMENT. CONTACTED DR MATOS TO VERIFY NO ANTIBIOTICS TODAY, NO FLUSHES AND THE SAME ORDER INFORMATION FOR PROGRAMNING THE MACHINE. INFORMED TO CHNAGE THE DEXTROSE SETTING TO SAME INSTEAD OF DIFFERENT DUE TO THE ANTIBIOCS NOT BEING USED. BROUGHT THE BAGS TO THE PHARMACY (2 BAGS OF 2.5% DINEAL 6000ML EACH) TO BE PREFILLED WITH HEPARIN FOR THE TREATMNET. (1000 UNITS PER LITER). BAGS WERE PICKED UP AND WENT TP [facility] ROOM [facility] AT APPROX 1600 AND WAS INFORMED THAT THE PT WILL BE MOVED TO [facility] IN A FEW MINUTES AND FOR ME TO SET UP IN THAT ROOM. MACHINE PRIMED AND READY TO CONNECT TO THE PATINET AT 1626PM. AWAITING ARIVAL OF PT TO COMPLETE CONNECTION.
--- NOTE | 2023-02-13 16:48 | NUR ---
PT MACHINE PRIMED AND READY, PT CONNECTED PER PROTOCOL AT APPROX 1700. FOR A NIGHT CCPD TREATMENT WITH A THERAPY TIME OF 8:10, TOTAL VOLUME OF 9500, WITH 5 CYCLES OF 1600 AND A LAST FILL OF 1500 WITHOUT ANTIBOTICS THIS EVENING.
--- NOTE | 2023-02-13 19:20 | NUR ---
PT TRANSFERED FROM PCU. ALERT AND ORIENTED X4. DIALYSIS NURSE AT BEDSIDE SETTING PT UP FOR PERITENEAL DIALYSIS. PLAN TO DISCHARGED TO HOME HEALTH TOMORROW. PT ON R/A. BED IN LOWEST POSTITION WITH CALL LIGHT IN REACH
[2023-02-14 04:34] LABS: Hematocrit 32.6 % (33.0-51.0); Hemoglobin 10.4 g/dL (11.5-16.0)
[2023-02-14 04:49] LABS: Albumin, Blood 1.7 g/dL (3.4-5.0); Anion Gap 6 mmol/L (6-16); Blood Urea Nitrogen 51 mg/dL (8-24); Bun/Creatinine Ratio 23.5 (12.0-20.0); CO2, Blood 26 mmol/L (21-32); Calcium, Blood 7.6 mg/dL (8.5-10.1); Chloride, Blood 106 mmol/L (98-108); Creatinine, Blood 2.17 mg/dL (0.40-1.00); Glomerular Filtration Rate 23 (60-); Glucose, Blood 165 mg/dL (70-99); Magnesium, Blood 1.7 mg/dL (1.6-2.4); Phosphorus, Blood 3.6 mg/dL (2.5-4.9); Potassium, Blood 3.1 mmol/L (3.5-5.5); Sodium, Blood 138 mmol/L (136-145)
--- NOTE | 2023-02-14 05:55 | NUR ---
PT WITH PD RUNNING THROUGH SHIFT. PT CALLS FOR NEEDS, MINIMAL NEEDS THROUGH OUT SHIFT. SLEPT WELL.
--- NOTE | 2023-02-14 08:30 | NUR ---
DIALYSIS NOTE CCPD TX COMPLETED PRESCRIBED. IDRAIN:1273, TUF:438, AVG DWELL: 1:10. PT DISCONNECTED PER P&P. PT TOLERATED PROCEDURE WELL. REPORT GIVEN TO PRIMARY RN.
--- NOTE | 2023-02-14 09:31 | NUR ---
DIALYSIS NOTE DISCHARGE COORDINATION WITH DR. MATOS, OUTPATIENT DIALYSIS CLINIC, CAREGIVERS AND FAMILY. HOME CCPD RX OBTAINED AND GIVEN TO HOME PD RN. HOME VISIT APPOINTMENT SCHEDULED WITH HOME PD RN, FAMILY AND NEW [facility].
--- NOTE | 2023-02-14 15:47 | NUR ---
NOTE PT RESTING QUIETLY. VSS. PLAN FOR PD TONIGHT THEN DISCHARGE HOME TOMORROW. REQUESTED EARLY THIS MORNING TO HAVE HER HOME MEDICATION REFILLED. FAMILY RELATED THEY WOULD GET IT FILLED. DENIED PAIN. PT HAS A LOW MOTIVATION TO DO MUCH OF ANYTHING FOR HERSELF. DAUGHTER IN WHEELCHAIR IS NOT MUCH ASSIST. CONTINUE POC.
--- NOTE | 2023-02-14 19:57 | NUR ---
DIALYSIS-PD PT WAKES UP EASILY. SITE CLEAR, DRESSING ON. STARTED TX AT 1935 PER PROTOCAL. NO LONGER ON FLUSHES OR ANTIBIOTICS. CCPD, 2 X 2.5% DIANEAL 6L BAG. HEPARIN ADDED BY PHARMACY. TOTAL VOLUME 9500, 8HRS 10 MIN, 1600 ML FILL, 1500 ML LAST FILL.5 CYCLES 1:16 HR AVERAGE DWELL.
--- NOTE | 2023-02-15 06:14 | NUR ---
PT COMPLAIN OF PAIN IN ABD, LARGE STOOL WITH SOME RELIEF. PT SLEPT MOST OF SHIFT, PD RUNNING T/O NIGHT. PT COMPLANED OF HEADACHE THIS AM, TYLENOL GIVEN AND PT SLEEPING AT TIME.
[2023-02-15 08:48] LABS: Hematocrit 30.7 % (33.0-51.0); Hemoglobin 9.7 g/dL (11.5-16.0)
[2023-02-15 09:10] LABS: Albumin, Blood 1.6 g/dL (3.4-5.0); Anion Gap 7 mmol/L (6-16); Blood Urea Nitrogen 53 mg/dL (8-24); Bun/Creatinine Ratio 22.2 (12.0-20.0); CO2, Blood 27 mmol/L (21-32); Calcium, Blood 7.7 mg/dL (8.5-10.1); Chloride, Blood 106 mmol/L (98-108); Creatinine, Blood 2.39 mg/dL (0.40-1.00); Glomerular Filtration Rate 21 (60-); Glucose, Blood 139 mg/dL (70-99); Magnesium, Blood 1.6 mg/dL (1.6-2.4); Phosphorus, Blood 3.5 mg/dL (2.5-4.9); Sodium, Blood 140 mmol/L (136-145)
--- NOTE | 2023-02-15 10:49 | NUR ---
PD RN TO PT RM MED 362 TO D/C CCPD NOC TX. PT DOOR WAS HUT AND SHE WAS RESING WITH EYES CLOSED. I D/C HER NOC CCPD TREATMNET WITH A IDRAIN OF 1588ML AND A TOTAL UF OF 223ML AT APPROX 0845. MACHINE BROUGHT BACK TO [facility] TO DISINFECT AND STRIP. PT LEFT WITH BED IN THE LOWEST SETTING WITH A CALL LIGHT WITHIN REACH. TREATMNET D/C PER PROTOCAL AND NEW DISINFECTING CAP PLACED ON PD CATH LUMEN AND NEW DRESSING APPLIED AFTER CLEANSING THE PD CATH EXIT SITE AND SURROUNDING AREAS.
[2023-02-15] MEDS ORDERED: ATOR20 PO (12:39)
[2023-02-15] MEDS ORDERED: PACERONE100 M1 PO (12:39)
[2023-02-15] MEDS ORDERED: CLOP75 PO (12:41)
[2023-02-15] MEDS ORDERED: BUDESONIDE EC3 M1 PO (12:41)
[2023-02-15] MEDS ORDERED: METO25 PO (12:42)
[2023-02-15] MEDS ORDERED: MIRALAX17 GM PO (12:42)
[2023-02-15] MEDS ORDERED: PANT40 PO (12:42)
[2023-02-15] MEDS ORDERED: PROTEIN SUPPLEMENT PO (12:44)
--- NOTE | 2023-02-15 13:51 | NUR ---
DISCHARGE HOME PT DISCHARGED HOME VIA [facility]. PT ALERT AND AGREEABLE TO GOING HOME. FAMILY IN ATTENDANCE. POWER GLIDE REMOVED FROM RIGHT UE. DISCHARGE PAPERWORK REVIEWED WITH MARLENE. CONTINUE POC.
== END 2023-02-15 13:48 | disposition home health service (06) | DRG 246 ==
LOC: ER 15:33 → PCU 15:55 → ICUW 15:55 → ICUE 15:55 → ICUW 17:07 → PCU 01-15 10:31 → MEDS 01-31 12:06 → PCU 02-02 18:28 → ICUW 02-05 09:01 → PCU 02-06 16:10 → MEDS 02-13 16:40
PROVIDERS: Family Medicine; Internal Medicine; Internal Medicine Gastroenterology; Internal Medicine Nephrology; Nurse Practitioner Acute Care; Student in an Organized Health Care Education/Training Program; ADMIT Internal Medicine Cardiovascular Disease
PROC: 027034Z Dilation of Coronary Artery, One Artery with Drug-eluting Intraluminal Device, Percutaneous Approach (ICD-10-PCS; principal; 2023-01-14)
PROC: 4A023N7 Measurement of Cardiac Sampling and Pressure, Left Heart, Percutaneous Approach (ICD-10-PCS; 2023-01-14)
PROC: B211YZZ Fluoroscopy of Multiple Coronary Arteries using Other Contrast (ICD-10-PCS; 2023-01-14)
PROC: B240ZZ3 Ultrasonography of Single Coronary Artery, Intravascular (ICD-10-PCS; 2023-01-14)
PROC: 3E03329 Introduction of Other Anti-infective into Peripheral Vein, Percutaneous Approach (ICD-10-PCS; 2023-01-14)
PROC: 3E1M39Z Irrigation of Peritoneal Cavity using Dialysate, Percutaneous Approach (ICD-10-PCS; 2023-01-16)
PROC: 0DH67UZ Insertion of Feeding Device into Stomach, Via Natural or Artificial Opening (ICD-10-PCS; 2023-01-21)
PROC: 0DJ08ZZ Inspection of Upper Intestinal Tract, Via Natural or Artificial Opening Endoscopic (ICD-10-PCS; 2023-01-27)
PROC: 0DBK8ZX Excision of Ascending Colon, Via Natural or Artificial Opening Endoscopic, Diagnostic (ICD-10-PCS; 2023-01-27)
PROC: 0DBL8ZX Excision of Transverse Colon, Via Natural or Artificial Opening Endoscopic, Diagnostic (ICD-10-PCS; 2023-01-27)
PROC: 0DBN8ZX Excision of Sigmoid Colon, Via Natural or Artificial Opening Endoscopic, Diagnostic (ICD-10-PCS; 2023-01-27)
PROC: 0DBP8ZX Excision of Rectum, Via Natural or Artificial Opening Endoscopic, Diagnostic (ICD-10-PCS; 2023-01-27)
PROC: 0DBB8ZX Excision of Ileum, Via Natural or Artificial Opening Endoscopic, Diagnostic (ICD-10-PCS; 2023-01-27)
PROC: 0DBM8ZX Excision of Descending Colon, Via Natural or Artificial Opening Endoscopic, Diagnostic (ICD-10-PCS; 2023-01-27)
PROC: 0DBH8ZX Excision of Cecum, Via Natural or Artificial Opening Endoscopic, Diagnostic (ICD-10-PCS; 2023-01-27)
PROC: 30233N1 Transfusion of Nonautologous Red Blood Cells into Peripheral Vein, Percutaneous Approach (ICD-10-PCS; 2023-02-03)
PROC: 3E033XZ Introduction of Vasopressor into Peripheral Vein, Percutaneous Approach (ICD-10-PCS; 2023-02-05)
DX: I21.09 ST elevation (STEMI) myocardial infarction involving other coronary artery of anterior wall (principal); A41.9 Sepsis, unspecified organism; K65.0 Generalized (acute) peritonitis; G92.8 Other toxic encephalopathy; N18.6 End stage renal disease; R65.20 Severe sepsis without septic shock; T85.71XA Infection and inflammatory reaction due to peritoneal dialysis catheter, initial encounter; I12.0 Hypertensive chronic kidney disease with stage 5 chronic kidney disease or end stage renal disease; E44.0 Moderate protein-calorie malnutrition; K63.3 Ulcer of intestine; Z94.0 Kidney transplant status; N25.81 Secondary hyperparathyroidism of renal origin; K92.0 Hematemesis; K50.90 Crohn's disease, unspecified, without complications; E87.1 Hypo-osmolality and hyponatremia; D62 Acute posthemorrhagic anemia; F05 Delirium due to known physiological condition; Z66 Do not resuscitate; Z51.5 Encounter for palliative care; I48.0 Paroxysmal atrial fibrillation; K52.9 Noninfective gastroenteritis and colitis, unspecified; E78.5 Hyperlipidemia, unspecified; D63.1 Anemia in chronic kidney disease; M10.9 Gout, unspecified; E87.70 Fluid overload, unspecified; I25.10 Atherosclerotic heart disease of native coronary artery without angina pectoris; E88.09 Other disorders of plasma-protein metabolism, not elsewhere classified; E86.1 Hypovolemia; I95.1 Orthostatic hypotension; E87.6 Hypokalemia; E83.39 Other disorders of phosphorus metabolism; G50.0 Trigeminal neuralgia; Z90.49 Acquired absence of other specified parts of digestive tract; Z91.15 Patient's noncompliance with renal dialysis; Z79.82 Long term (current) use of aspirin; Z99.2 Dependence on renal dialysis; B95.2 Enterococcus as the cause of diseases classified elsewhere; Z79.811 Long term (current) use of aromatase inhibitors; Z79.02 Long term (current) use of antithrombotics/antiplatelets; Z79.899 Other long term (current) drug therapy; Z98.890 Other specified postprocedural states; Z68.20 Body mass index [BMI] 20.0-20.9, adult; Z98.84 Bariatric surgery status; Z88.8 Allergy status to other drugs, medicaments and biological substances; Z79.52 Long term (current) use of systemic steroids; Z79.2 Long term (current) use of antibiotics
CPT/HCPCS: 36415; 36430; 70450; 71045; 74176; 74177; 77001; 80048; 80053; 80061; 80069; 80074; 80170; 80202; 80400; 81001; 82270; 82271; 82272; 82533; 82550; 82553; 82607; 82728; 82746; 82947; 83540; 83550; 83605; 83615; 83735; 84100; 84484; 85014; 85018; 85025; 85027; 85347; 85610; 85651; 85730; 86140; 86317; 86850; 86900; 86901; 86923; 87040; 87070; 87077; 87086; 87186; 87205; 87493; 88305; 89051; 92526; 92610; 93005; 93010; 93458; 94760; 94762; 96374-59; 97110; 97162; 97166; 97530; 97535; 99285-25; A9270; C1725; C1751; C1752; C1757; C1769; C1874; C1887; C1894; C8929; C9113; C9600; C9606; J0690; J0692; J0713; J0744; J0834; J0881; J1580; J1644; J1885; J2001; J2248; J2250; J2370; J2405; J2704; J2920; J3010; J3370; J3480; J7030; J7040; J7050; J7060; J7512; P9016; Q9957; Q9967

== ENCOUNTER → 2023-04-21 | Outpatient (CLI) | payer MEDICARE, BC ==
[~2023-04-21] MED LIST changes: +ASPI81CH PO; +ATOR20 PO; +BUDESONIDE EC3 M1 PO; +BUME1 PO; +CALC.25 PO; +CLOP75 PO; +Calcium Carbon500 MG PO; +HAIR, SKIN AND1 EAC3 PO; +METO25 PO; +MIDO5 PO; +MIRALAX17 GM PO; +NEURIVA PO; +PACERONE100 M1 PO; +PROBIOTIC1 EA13 PO; +PROFERRIN PO; +PROTEIN SUPPLEMENT PO
== END | disposition home or self-care (01) ==
LOC: LAB SHORT 12:18 → LAB 12:18
DX: N39.0 Urinary tract infection, site not specified (principal)
CPT/HCPCS: 87077; 87086; 87186

== ENCOUNTER 2023-05-02 13:17 | Inpatient (IN) | payer MEDICARE, BC ==
[~2023-05-02] VITALS: Ht 167.6 cm; Wt 51.8 kg
[2023-05-02] VITALS (13 sets, daily range): BP systolic 83–113; BP diastolic 57–82
[~2023-05-02 13:17] MED LIST changes: -ATOR20 PO; +ATOR40TA PO
[2023-05-02 13:55] LABS: BASOPHILS ABSOLUTE AUTO 0.04 K/mm3 (0.00-0.23); BASOPHILS PERCENT AUTO 0 % (0-2); EOSINOPHILS ABSOLUTE AUTO 0.01 K/mm3 (0.00-0.68); EOSINOPHILS PERCENT AUTO 0 % (0-6); Hematocrit 33.3 % (33.0-51.0); Hemoglobin 10.9 g/dL (11.5-16.0); IMMATURE GRAN ABSOLUTE AUTO 0.11 K/mm3 (0.00-0.10); IMMATURE GRAN PERCENT AUTO 1 % (0-1); LYMPHOCYTES ABSOLUTE AUTO 3.16 K/mm3 (0.84-5.20); LYMPHOCYTES PERCENT AUTO 35 % (21-46); MONOCYTES ABSOLUTE AUTO 0.97 K/mm3 (0.16-1.47); MONOCYTES PERCENT AUTO 11 % (4-13); Mean Corpuscular HGB Conc 32.7 g/dL (31.5-36.5); Mean Corpuscular Volume 92 fL (80-100); Mean Platelet Volume 10.2 fL (9.1-12.4); NEUTROPHILS ABSOLUTE AUTO 4.66 K/mm3 (1.96-9.15); NEUTROPHILS PERCENT AUTO 52 % (41-73); NRBC ABSOLUTE 0.02 K/mm3 (0.00-0.02); NRBC Auto 0.2 /100 WBC (0.0-0.2); Platelet Count 294 K/mm3 (150-400); RDW Coefficient Variation 15.5 % (11.7-14.2); RDW Standard Deviation 51.3 fL (35.1-46.3); Red Blood Cell Count 3.63 M/mm3 (3.80-5.20); White Blood Cell Count 8.95 K/mm3 (4.00-11.30)
[2023-05-02 14:18] LABS: Albumin, Blood 2.2 g/dL (3.4-5.0); Albumin/Globulin Ratio 0.7 (0.8-1.8); Bilirubin, Total 0.2 mg/dL (0.1-1.0); Bun/Creatinine Ratio 22.9 (12.0-20.0); Creatinine, Blood 2.71 mg/dL (0.40-1.00); Potassium, Blood 3.4 mmol/L (3.5-5.5); Total Protein, Blood 5.2 g/dL (6.4-8.2)
[2023-05-02 15:37] LABS: Anti-Xa UFH, PHA Monitoring <0.10 IU/mL; International Normalized Ratio 1.07; Prothrombin Time Results 11.2 Sec (9.7-11.5)
[2023-05-02] MEDS ORDERED: SERT50 PO (18:33)
[2023-05-02 18:55] LABS: Potassium, Blood 3.3 mmol/L (3.5-5.5)
[2023-05-02 19:34] LABS: Creatine Kinase MB 113.9 ng/mL (0.0-3.6)
--- NOTE | 2023-05-02 21:38 | NUR ---
PERITONEAL DIALYSIS NOTE: PATIENT IS ALERT AND ORIENTED X 4. DIALYSIS CYCLER SET-UP PER ORDERS USING ASEPTIC TECHNIQUE. PATIENT HAS NO COMPLAINTS OF DYSPNEA OR ABDOMINAL PAIN. TRACE BLE EDEMA NOTED. PATIENT TO RUN 6 HOURS WITH 4 EXCHANGES OF 1600 ML AND A LAST FILL OF 200 ML. DWELL TIME OF 70 MINS. PD CATHETER DRESSING CHANGED WITH NO SIGNS OR SYMPTOMS OF INFECTION NOTED. PATIENT CONNECETED TO CYCLER, TREATMENT STARTED AND RUNNING WITHOUT PROBLEMS. REPORT GIVEN TO PRIMARY RN.
--- NOTE | 2023-05-02 23:19 | NUR ---
Contacted Dr. Robbins regarding high troponin results drawn post angio, order to DC those lab orders along with CPK orders.
[2023-05-03] VITALS: BP 86/60
[2023-05-03 03:55] LABS: Hematocrit 35.6 % (33.0-51.0); Hemoglobin 11.8 g/dL (11.5-16.0); Mean Corpuscular HGB 29.9 pg (26.0-34.0); Mean Corpuscular HGB Conc 33.1 g/dL (31.5-36.5); Mean Corpuscular Volume 90 fL (80-100); RDW Coefficient Variation 15.8 % (11.7-14.2); RDW Standard Deviation 50.6 fL (35.1-46.3); Red Blood Cell Count 3.94 M/mm3 (3.80-5.20); White Blood Cell Count 12.25 K/mm3 (4.00-11.30)
[2023-05-03 04:00] VITALS: BP 77/60
[2023-05-03 04:05] LABS: Mean Platelet Volume 10.4 fL (9.1-12.4); Platelet Count 265 K/mm3 (150-400)
[2023-05-03 04:13] LABS: Albumin, Blood 2.3 g/dL (3.4-5.0); Albumin/Globulin Ratio 0.7 (0.8-1.8); Bilirubin, Total 0.3 mg/dL (0.1-1.0); Bun/Creatinine Ratio 21.6 (12.0-20.0); Creatinine, Blood 2.55 mg/dL (0.40-1.00); Globulin, Blood 3.3 g/dL (2.2-4.0); Potassium, Blood 3.8 mmol/L (3.5-5.5); Total Protein, Blood 5.6 g/dL (6.4-8.2)
[2023-05-03 05:00] VITALS: BP 83/58
--- NOTE | 2023-05-03 05:28 | NUR ---
Assumed care of pt at 1900. A/Ox4, cooperative with care. Bedrest with purewick in place secondary to PD and oozing of angio site. C/o pain in back. Maintains over 95% on RA, BP soft but with MAP over 70. LS clear on top and dim at bases. SR on tele 70's, denies CP/pressure. Heparin gtt going per emar. PD site C/D/I and currently running per her schedule. Bruising noted t/o. R radial site recovered at 0100 as patient had oozing from site, bruising noted but without hematoma. R groin site with slow sanguineous drainage that has stopped this shift. Will report to massimo PRETTY.
[2023-05-03 05:40] LABS: BAND PERCENT MAN 10 % (0-8); BASOPHILS ABSOLUTE MAN 0.12 K/mm3 (0.00-0.23); BASOPHILS PERCENT MAN 1 % (0-2); EOSINOPHILS PERCENT MAN 0 % (0-6); LYMPHOCYTES ABSOLUTE MAN 2.69 K/mm3 (0.84-5.20); LYMPHOCYTES PERCENT MAN 22 % (21-46); MONOCYTES ABSOLUTE MAN 0.73 K/mm3 (0.16-1.47); MONOCYTES PERCENT MAN 6 % (4-13); NEUTROPHILS ABSOLUTE MAN 8.69 K/mm3 (1.96-9.15); SEG NEUTROPHILS PERCENT MAN 61 % (41-73); TOTAL CELLS COUNTED 100
[2023-05-03 06:00] VITALS: BP 68/48
[2023-05-03 06:02] VITALS: BP 76/59
--- NOTE | 2023-05-03 07:30 | NUR ---
DIALYSIS NOTE CCPD TX COMPLETED PRESCRIBED. IDRAIN 4, TUF [phone]), AVG DWELL 24MIN. PT REPORTS SHE TOLERATED TX WELL, NO ALARMS DURING NIGHT. PT DICONNECTED FROM CYCLER, TRANSFER CLOSED CLAMPED AND SECURED. PT ANTICIPATES D/C HOME TODAY. REPORT GIVEN TO PRIMARY RN, DOUGLAS MCNAMARA RN.
[2023-05-03 07:45] VITALS: BP 83/56
--- NOTE | 2023-05-03 10:00 | NUR ---
AM NOTE: PT POST ANGIO, NO ACUTE CHANGE FROM LAST NIGHT PER NOC RN. PERITONEAL DIALYSIS DONE THIS AM MANAGED BY DIALYSIS NURSE. PT DENIES ANY PAIN, NVM. VITALS HRR JR 70'S, SBP SOFT WHICH IS CHRONIC 80-90'S WITH MAP ABOVE 65, SATS ABOVE 95% ON RA, AFEBRILE. DIET RESUMED THIS MORNING PT TOLERATED WELL, PLAN TO DC TODAY IF NO ISSUES, RIGHT GROIN SITE WITH DRESSING CDI, NO HEMATOMA/BLEEDING AROUND THE SITE. NO OTHER COMPLAINS AT THIS TIME, PT RESTING IN BED WITH CALL LIGHTS IN REACH WILL CONTINUE TO MONITOR UNTIL DISCHARGE
[2023-05-03] MEDS ORDERED: CHOLESTYRAMI239.4 G1 PO (11:52)
[2023-05-03] MEDS ORDERED: Promod946 ML PO (11:52)
--- NOTE | 2023-05-03 12:45 | NUR ---
PT DISCHARGE TO HOME TODAY WITH DISCHARGE ORDERS. VITALS HAS BEEN STABLE, NO CHEST PAIN OR PRESSURE REPORTED. FAMILY AT THE BEDSIDE UNTIL PT WAS DISCHARGE PRESCRIPTION SENT TO [facility], ALL BELONGINGS SENT WITH THE PT, DISCLOSED ALL INSTRUCTIONS AND NEW MEDICATIONS WITH FAMILY AT THE BEDSIDE. ACCOMPANIED VIA WHEELCHAIR BY CHANNEL MACHINE OPERATOR STUDENTS.
== END 2023-05-03 12:46 | disposition home or self-care (01) | DRG 246 ==
LOC: ER 13:17 → PCU 15:37
PROVIDERS: Emergency Medicine; Internal Medicine Interventional Cardiology; Internal Medicine Nephrology; ADMIT Internal Medicine
PROC: 027034Z Dilation of Coronary Artery, One Artery with Drug-eluting Intraluminal Device, Percutaneous Approach (ICD-10-PCS; principal; 2023-05-02)
PROC: 4A023N7 Measurement of Cardiac Sampling and Pressure, Left Heart, Percutaneous Approach (ICD-10-PCS; 2023-05-02)
PROC: B2111ZZ Fluoroscopy of Multiple Coronary Arteries using Low Osmolar Contrast (ICD-10-PCS; 2023-05-02)
PROC: 3E1M39Z Irrigation of Peritoneal Cavity using Dialysate, Percutaneous Approach (ICD-10-PCS; 2023-05-03)
DX: I21.29 ST elevation (STEMI) myocardial infarction involving other sites (principal); E43 Unspecified severe protein-calorie malnutrition; N18.6 End stage renal disease; N25.81 Secondary hyperparathyroidism of renal origin; I13.2 Hypertensive heart and chronic kidney disease with heart failure and with stage 5 chronic kidney disease, or end stage renal disease; Z94.0 Kidney transplant status; Z68.1 Body mass index [BMI] 19.9 or less, adult; Z66 Do not resuscitate; I50.9 Heart failure, unspecified; I95.89 Other hypotension; K52.9 Noninfective gastroenteritis and colitis, unspecified; D63.1 Anemia in chronic kidney disease; I48.0 Paroxysmal atrial fibrillation; M10.9 Gout, unspecified; E87.6 Hypokalemia; E83.42 Hypomagnesemia; G25.81 Restless legs syndrome; I25.10 Atherosclerotic heart disease of native coronary artery without angina pectoris; E78.5 Hyperlipidemia, unspecified; R00.1 Bradycardia, unspecified; R54 Age-related physical debility; Z98.890 Other specified postprocedural states; Z88.8 Allergy status to other drugs, medicaments and biological substances; Z99.2 Dependence on renal dialysis; I25.2 Old myocardial infarction; Z98.84 Bariatric surgery status; Z87.19 Personal history of other diseases of the digestive system
CPT/HCPCS: 36415; 71046; 76937; 80053; 82550; 82553; 83735; 84132; 84484; 85025; 85520; 85610; 85730; 93005; 93010; 93454; 94762; 96361; 96374; 99152; 99153; 99285-25; A9270; C1725; C1760; C1769; C1874; C1887; C1894; C9600; J0461; J1644; J2250; J2270; J2405; J3010; J3246; J3475; J3480; J7030; J7040; J7050; Q9967

== ENCOUNTER 2023-07-08 12:02 | Emergency (ER) | payer MEDICARE, BC ==
[~2023-07-08] VITALS: Ht 167.6 cm; Wt 49.4 kg
[~2023-07-08 12:02] MED LIST changes: +CHOLESTYRAMI239.4 G1 PO; +Promod946 ML PO; +SERT50 PO
[2023-07-08 13:19] LABS: Albumin, Blood 1.9 g/dL (3.4-5.0); Albumin/Globulin Ratio 0.6 (0.8-1.8); Bilirubin, Total 0.3 mg/dL (0.1-1.0); Bun/Creatinine Ratio 24.1 (12.0-20.0); Calcium, Blood 7.4 mg/dL (8.5-10.1); Creatinine, Blood 2.41 mg/dL (0.40-1.00); Globulin, Blood 3.1 g/dL (2.2-4.0); Potassium, Blood 3.5 mmol/L (3.5-5.5)
[2023-07-08 13:25] LABS: BASOPHILS ABSOLUTE AUTO 0.08 K/mm3 (0.00-0.23); BASOPHILS PERCENT AUTO 1 % (0-2); EOSINOPHILS ABSOLUTE AUTO 0.36 K/mm3 (0.00-0.68); EOSINOPHILS PERCENT AUTO 4 % (0-6); Hemoglobin 7.6 g/dL (11.5-16.0); IMMATURE GRAN ABSOLUTE AUTO 0.18 K/mm3 (0.00-0.10); IMMATURE GRAN PERCENT AUTO 2 % (0-1); LYMPHOCYTES ABSOLUTE AUTO 2.26 K/mm3 (0.84-5.20); LYMPHOCYTES PERCENT AUTO 23 % (21-46); MONOCYTES ABSOLUTE AUTO 1.33 K/mm3 (0.16-1.47); MONOCYTES PERCENT AUTO 14 % (4-13); Mean Corpuscular HGB 30.9 pg (26.0-34.0); Mean Corpuscular HGB Conc 31.7 g/dL (31.5-36.5); Mean Corpuscular Volume 98 fL (80-100); Mean Platelet Volume 9.9 fL (9.1-12.4); NEUTROPHILS ABSOLUTE AUTO 5.53 K/mm3 (1.96-9.15); NEUTROPHILS PERCENT AUTO 57 % (41-73); Platelet Count 388 K/mm3 (150-400); RDW Standard Deviation 59.9 fL (35.1-46.3); Red Blood Cell Count 2.46 M/mm3 (3.80-5.20); White Blood Cell Count 9.74 K/mm3 (4.00-11.30)
[2023-07-08 13:49] LABS: Source, Urine Straight Cath
[2023-07-08 13:51] LABS: Magnesium, Blood 0.8 mg/dL (1.6-2.4)
[2023-07-08 13:54] LABS: Bilirubin, Urine Neg (Neg); Blood, Urine Neg (Neg); Color, Urine Yellow (P-Yellow); Glucose Qualitative, Urine Neg (Neg); Ketones, Urine Neg (Neg); Leukocyte Esterase, Urine Neg (Neg); Nitrite, Urine Neg (Neg); Protein, Urine 1+ (Neg); Specific Gravity, Urine 1.015 (1.003-1.022); Urobilinogen, Urine NORM (Normal)
[2023-07-08 14:02] LABS: Appearance, Urine Clear (Clear)
[2023-07-08 16:30] LABS: Automated BF WBC Count 0.134 K/mm3 (0-999)
[2023-07-08 16:40] LABS: Appearance, Body Fluid Clear (Clear); Color, Body Fluid No color (None-Yellow)
[2023-07-08 16:46] LABS: Body Fluid WBC Count 134 /mm3 (0-999)
[2023-07-08 17:02] LABS: RBC Count, Body Fluid 131 /mm3 (0-0)
[2023-07-08 17:12] LABS: Glucose, Body Fluid 103 mg/dL; Lactate Dehydrogenase, Body Fl 35 U/L; Protein, Body Fluid 0.5 g/dL
[2023-07-08 17:28] LABS: Total Cell Count, Body Fluid 100
[2023-07-08 19:12] VITALS: BP 93/50
== END 2023-07-08 19:13 | disposition home or self-care (01) ==
LOC: ER 12:02
PROVIDERS: Student in an Organized Health Care Education/Training Program
DX: E83.42 Hypomagnesemia (principal); D64.9 Anemia, unspecified; R53.1 Weakness; Z88.8 Allergy status to other drugs, medicaments and biological substances; Z79.899 Other long term (current) drug therapy; I10 Essential (primary) hypertension; I48.0 Paroxysmal atrial fibrillation
CPT/HCPCS: 80053; 82945; 83615; 83735; 84157; 85025; 87070; 87075; 87205; 89051; 93005; 93010; 96365; 96366; 99285-25; J3475

== ENCOUNTER → 2023-10-05 | Outpatient (CLI) | payer MEDICARE, BC ==
[2023-10-05 14:47] LABS: BASOPHILS ABSOLUTE AUTO 0.07 K/mm3 (0.00-0.23); BASOPHILS PERCENT AUTO 1 % (0-2); EOSINOPHILS PERCENT AUTO 1 % (0-6); Hematocrit 38.1 % (33.0-51.0); Hemoglobin 12.2 g/dL (11.5-16.0); IMMATURE GRAN ABSOLUTE AUTO 0.12 K/mm3 (0.00-0.10); IMMATURE GRAN PERCENT AUTO 2 % (0-1); LYMPHOCYTES ABSOLUTE AUTO 2.78 K/mm3 (0.84-5.20); LYMPHOCYTES PERCENT AUTO 38 % (21-46); MONOCYTES ABSOLUTE AUTO 0.73 K/mm3 (0.16-1.47); MONOCYTES PERCENT AUTO 10 % (4-13); Mean Corpuscular HGB 31.5 pg (26.0-34.0); Mean Corpuscular Volume 98 fL (80-100); Mean Platelet Volume 10.3 fL (9.1-12.4); NEUTROPHILS ABSOLUTE AUTO 3.55 K/mm3 (1.96-9.15); NEUTROPHILS PERCENT AUTO 48 % (41-73); Platelet Count 344 K/mm3 (150-400); RDW Coefficient Variation 15.9 % (11.7-14.2); Red Blood Cell Count 3.87 M/mm3 (3.80-5.20); White Blood Cell Count 7.35 K/mm3 (4.00-11.30)
[2023-10-05 15:14] LABS: Albumin, Blood 2.7 g/dL (3.4-5.0); Bilirubin, Total 0.3 mg/dL (0.1-1.0); Bun/Creatinine Ratio 14.7 (12.0-20.0); Creatinine, Blood 2.72 mg/dL (0.40-1.00); Globulin, Blood 2.7 g/dL (2.2-4.0); Potassium, Blood 3.1 mmol/L (3.5-5.5); Total Protein, Blood 5.4 g/dL (6.4-8.2)
== END ==
LOC: EDSTATUS 10:19 → LAB DAV 13:20
PROVIDERS: Internal Medicine Nephrology
DX: N18.6 End stage renal disease (principal); D63.1 Anemia in chronic kidney disease
CPT/HCPCS: 80053; 85025

== ENCOUNTER 2023-11-01 13:32 | Emergency (ER) | payer MEDICARE, BC ==
[~2023-11-01] VITALS: Ht 167.6 cm; Wt 50.8 kg
[2023-11-01 14:05] VITALS: BP 105/67
[2023-11-01] MEDS ORDERED: HYDR1TAB94 PO (16:14)
== END 2023-11-01 16:44 | disposition home or self-care (01) ==
LOC: ER 13:32
DX: S80.12XA Contusion of left lower leg, initial encounter (principal); M79.605 Pain in left leg; M53.3 Sacrococcygeal disorders, not elsewhere classified; I10 Essential (primary) hypertension; W18.30XA Fall on same level, unspecified, initial encounter; Z88.8 Allergy status to other drugs, medicaments and biological substances; Z79.899 Other long term (current) drug therapy
CPT/HCPCS: 72220; 73562-LT; 90471; 90714; 99283-25; A9270

== ENCOUNTER → 2023-11-22 | Outpatient (CLI) | payer MEDICARE, BC ==
[~2023-11-22] MED LIST changes: +HYDR1TAB94 PO
[2023-11-22 18:30] LABS: Alanine Aminotransfer (ALT/SGP 18 U/L (12-78); Albumin, Blood 2.1 g/dL (3.4-5.0); Albumin/Globulin Ratio 0.7 (0.8-1.8); Alk Phos 61 U/L (50-136); Aspartate Aminotrans (AST/SGOT 24 U/L (12-37); Bilirubin, Direct <0.1 mg/dL (0.0-0.3); Bilirubin, Indirect Unable to Calculate mg/dL (0.1-0.7); Bilirubin, Total 0.3 mg/dL (0.1-1.0); Globulin, Blood 2.9 g/dL (2.2-4.0)
== END ==
LOC: LAB SHORT 17:26 → LAB 17:26
PROVIDERS: Internal Medicine Nephrology
DX: N18.6 End stage renal disease (principal); R10.9 Unspecified abdominal pain
CPT/HCPCS: 80076

== ENCOUNTER 2024-03-26 01:02 | Emergency (ER) | payer OTHER, MEDICARE, BC ==
[~2024-03-26] VITALS: Ht 167.6 cm; Wt 49.9 kg
[2024-03-26 02:50] VITALS: BP 124/85
== END 2024-03-26 04:24 | disposition home or self-care (01) ==
LOC: ER 01:02
DX: S01.01XA Laceration without foreign body of scalp, initial encounter (principal); S51.812A Laceration without foreign body of left forearm, initial encounter; S80.02XA Contusion of left knee, initial encounter; Y93.01 Activity, walking, marching and hiking; I12.0 Hypertensive chronic kidney disease with stage 5 chronic kidney disease or end stage renal disease; N18.9 Chronic kidney disease, unspecified; W01.0XXA Fall on same level from slipping, tripping and stumbling without subsequent striking against object, initial encounter; Z79.02 Long term (current) use of antithrombotics/antiplatelets; Z79.899 Other long term (current) drug therapy; Z88.8 Allergy status to other drugs, medicaments and biological substances

== ENCOUNTER 2024-07-08 08:04 | Emergency (ER) | payer MEDICARE, BC ==
[~2024-07-08] VITALS: Ht 167.6 cm; Wt 49.9 kg
[2024-07-08 08:21] VITALS: BP 142/89
== END 2024-07-08 09:10 | disposition home or self-care (01) ==
LOC: ER 08:04
DX: S40.022A Contusion of left upper arm, initial encounter (principal); S40.021A Contusion of right upper arm, initial encounter; X58.XXXA Exposure to other specified factors, initial encounter; I12.0 Hypertensive chronic kidney disease with stage 5 chronic kidney disease or end stage renal disease; N18.6 End stage renal disease; I48.0 Paroxysmal atrial fibrillation; I25.2 Old myocardial infarction; Z99.2 Dependence on renal dialysis; Z88.8 Allergy status to other drugs, medicaments and biological substances; Z79.899 Other long term (current) drug therapy
CPT/HCPCS: 99283

== ENCOUNTER 2025-08-01 15:26 | Emergency (ER) | payer MEDICARE ==
[~2025-08-01] VITALS: Ht 167.6 cm; Wt 49.9 kg
[2025-08-01] MEDS ORDERED: NS 1,000 ML IV SCH (15:55)
[2025-08-01] MEDS ORDERED: HYDROcodone 5-APAP 325 TAB PO ONE (15:55)
[2025-08-01 16:10] LABS: BASOPHILS ABSOLUTE AUTO 0.06 K/mm3 (0.00-0.23); BASOPHILS PERCENT AUTO 1 % (0-2); EOSINOPHILS ABSOLUTE AUTO 0.16 K/mm3 (0.00-0.68); EOSINOPHILS PERCENT AUTO 1 % (0-6); Hematocrit 25.5 % (33.0-51.0); Hemoglobin 8.7 g/dL (11.5-16.0); IMMATURE GRAN ABSOLUTE AUTO 0.30 K/mm3 (0.00-0.10); IMMATURE GRAN PERCENT AUTO 3 % (0-1); LYMPHOCYTES ABSOLUTE AUTO 1.63 K/mm3 (0.84-5.20); LYMPHOCYTES PERCENT AUTO 14 % (21-46); MONOCYTES ABSOLUTE AUTO 1.33 K/mm3 (0.16-1.47); MONOCYTES PERCENT AUTO 12 % (4-13); Mean Corpuscular HGB Conc 34.1 g/dL (31.5-36.5); Mean Corpuscular Volume 89 fL (80-100); NEUTROPHILS ABSOLUTE AUTO 7.83 K/mm3 (1.96-9.15); NEUTROPHILS PERCENT AUTO 69 % (41-73); NRBC ABSOLUTE 0.02 K/mm3 (0.00-0.02); NRBC Auto 0.2 /100 WBC (0.0-0.2); Platelet Count 267 K/mm3 (150-400); RDW Coefficient Variation 15.7 % (11.7-14.2); RDW Standard Deviation 49.4 fL (35.1-46.3)
[2025-08-01 16:33] LABS: Magnesium, Blood 1.7 mg/dL (1.6-2.4)
[2025-08-01 16:37] LABS: Alanine Aminotransfer (ALT/SGP 20.0 U/L (12-78); Albumin, Blood 2.2 g/dL (3.4-5.0); Albumin/Globulin Ratio 0.7 (0.8-1.8); Anion Gap 10.0 mmol/L (3-11); Aspartate Aminotrans (AST/SGOT 20.0 U/L (12-37); Bilirubin, Total 0.4 mg/dL (0.1-1.0); Blood Urea Nitrogen 80.0 mg/dL (8-24); CO2, Blood 21.0 mmol/L (21-32); Calcium, Blood 8.5 mg/dL (8.5-10.1); Chloride, Blood 111.0 mmol/L (98-108); Creatinine, Blood 8.35 mg/dL (0.40-1.00); Globulin, Blood 3.1 g/dL (2.2-4.0); Glucose, Blood 104.0 mg/dL (70-99); Phosphorus, Blood 4.5 mg/dL (2.5-4.9); Potassium, Blood 3.4 mmol/L (3.5-5.5); Sodium, Blood 139.0 mmol/L (136-145); Total Protein, Blood 5.3 g/dL (6.4-8.2)
[2025-08-01 19:00] VITALS: BP 134/61
== END 2025-08-01 19:10 | disposition home or self-care (01) ==
LOC: ER 15:26
PROVIDERS: Student in an Organized Health Care Education/Training Program
DX: S09.90XA Unspecified injury of head, initial encounter (principal); S41.112A Laceration without foreign body of left upper arm, initial encounter; I12.0 Hypertensive chronic kidney disease with stage 5 chronic kidney disease or end stage renal disease; N18.6 End stage renal disease; I25.2 Old myocardial infarction; W18.30XA Fall on same level, unspecified, initial encounter; Z79.02 Long term (current) use of antithrombotics/antiplatelets; Z79.01 Long term (current) use of anticoagulants; Z79.899 Other long term (current) drug therapy; Z88.8 Allergy status to other drugs, medicaments and biological substances
CPT/HCPCS: 12002; 70450; 72125; 73060; 73502; 80053; 83735; 83880; 84100; 84484; 85025; 90471; 90715; 93005; 93010; 99285-25; A6590; A9270; J7030

== ENCOUNTER 2025-08-12 10:57 | Emergency (ER) | payer MEDICARE ==
[~2025-08-12] VITALS: Ht 152.4 cm; Wt 45.4 kg
[2025-08-12 12:37] LABS: BASOPHILS ABSOLUTE AUTO 0.06 K/mm3 (0.00-0.23); BASOPHILS PERCENT AUTO 1 % (0-2); EOSINOPHILS ABSOLUTE AUTO 0.19 K/mm3 (0.00-0.68); EOSINOPHILS PERCENT AUTO 2 % (0-6); Hematocrit 24.6 % (33.0-51.0); Hemoglobin 8.0 g/dL (11.5-16.0); IMMATURE GRAN ABSOLUTE AUTO 0.27 K/mm3 (0.00-0.10); IMMATURE GRAN PERCENT AUTO 2 % (0-1); LYMPHOCYTES ABSOLUTE AUTO 2.13 K/mm3 (0.84-5.20); LYMPHOCYTES PERCENT AUTO 19 % (21-46); MONOCYTES ABSOLUTE AUTO 1.51 K/mm3 (0.16-1.47); MONOCYTES PERCENT AUTO 14 % (4-13); Mean Corpuscular HGB Conc 32.5 g/dL (31.5-36.5); Mean Corpuscular Volume 93 fL (80-100); NEUTROPHILS ABSOLUTE AUTO 7.03 K/mm3 (1.96-9.15); NEUTROPHILS PERCENT AUTO 63 % (41-73); NRBC ABSOLUTE 0.02 K/mm3 (0.00-0.02); NRBC Auto 0.2 /100 WBC (0.0-0.2); Platelet Count 305 K/mm3 (150-400); RDW Coefficient Variation 17.3 % (11.7-14.2); RDW Standard Deviation 57.1 fL (35.1-46.3)
[2025-08-12 12:42] LABS: Magnesium, Blood 1.9 mg/dL (1.6-2.4)
[2025-08-12 12:45] LABS: Alanine Aminotransfer (ALT/SGP 19.0 U/L (12-78); Albumin, Blood 2.2 g/dL (3.4-5.0); Albumin/Globulin Ratio 0.6 (0.8-1.8); Anion Gap 14.0 mmol/L (3-11); Aspartate Aminotrans (AST/SGOT 16.0 U/L (12-37); Bilirubin, Total 0.5 mg/dL (0.1-1.0); Blood Urea Nitrogen 73.0 mg/dL (8-24); CO2, Blood 24.0 mmol/L (21-32); Calcium, Blood 9.3 mg/dL (8.5-10.1); Chloride, Blood 106.0 mmol/L (98-108); Creatinine, Blood 8.53 mg/dL (0.40-1.00); Globulin, Blood 3.4 g/dL (2.2-4.0); Glucose, Blood 76.0 mg/dL (70-99); Potassium, Blood 4.3 mmol/L (3.5-5.5); Sodium, Blood 140.0 mmol/L (136-145); Total Protein, Blood 5.6 g/dL (6.4-8.2)
[2025-08-12 13:36] LABS: Influenza A, PCR NEGATIVE (NEGATIVE); Influenza B, PCR NEGATIVE (NEGATIVE); Resp Syncytial Virus, PCR NEGATIVE (NEGATIVE); SARS-Cov-2 (COVID-19) PCR, MMC NEGATIVE (NEGATIVE)
[2025-08-12 14:13] LABS: Source, Urine Straight Cath
[2025-08-12 14:18] LABS: Bilirubin, Urine Neg (Neg); Color, Urine Yellow (P-Yellow); Glucose Qualitative, Urine Neg (Neg); Ketones, Urine Neg (Neg); Leukocyte Esterase, Urine 1+ (Neg); Protein, Urine Neg (Neg); Specific Gravity, Urine 1.010 (1.003-1.022); Urobilinogen, Urine NORM (Normal)
[2025-08-12 14:42] LABS: Yeast/Fungi Urine Mod /hpf
[2025-08-12] MEDS ORDERED: HYDROcodone 5-APAP 325 TAB PO PRN (15:40)
[2025-08-13] MEDS ORDERED: NS 500 ML IV SCH (12:40)
[2025-08-13 15:45] VITALS: BP 117/63
== END 2025-08-13 16:16 | disposition home or self-care (01) ==
LOC: ER 10:57
PROVIDERS: Emergency Medicine
DX: R53.1 Weakness (principal); R53.83 Other fatigue; R33.9 Retention of urine, unspecified; N18.6 End stage renal disease; I25.2 Old myocardial infarction; Z99.2 Dependence on renal dialysis; Z79.02 Long term (current) use of antithrombotics/antiplatelets; Z79.899 Other long term (current) drug therapy; Z11.52 Encounter for screening for COVID-19
CPT/HCPCS: 36415; 51702; 70450; 71045; 80053; 81001; 83605; 83735; 84484; 85025; 87040; 87086; 87106; 87637; 93005; 93010; 96360; 99285-25; A6590; A9270; J7030; J7120

== ENCOUNTER 2025-08-14 13:07 | Inpatient (IN) | payer MEDICARE, OTHER ==
[~2025-08-14] VITALS: Ht 167.6 cm; Wt 51.1 kg
[2025-08-14 17:48] LABS: Magnesium, Blood 1.9 mg/dL (1.6-2.4)
[2025-08-14 18:14] LABS: Alanine Aminotransfer (ALT/SGP 24.0 U/L (12-78); Albumin, Blood 2.3 g/dL (3.4-5.0); Albumin/Globulin Ratio 0.7 (0.8-1.8); Anion Gap 16.0 mmol/L (3-11); Aspartate Aminotrans (AST/SGOT 31.0 U/L (12-37); Bilirubin, Total 0.5 mg/dL (0.1-1.0); Blood Urea Nitrogen 76.0 mg/dL (8-24); CO2, Blood 20.0 mmol/L (21-32); Calcium, Blood 8.6 mg/dL (8.5-10.1); Chloride, Blood 107.0 mmol/L (98-108); Creatinine, Blood 8.33 mg/dL (0.40-1.00); Globulin, Blood 3.4 g/dL (2.2-4.0); Glucose, Blood 86.0 mg/dL (70-99); Phosphorus, Blood 3.7 mg/dL (2.5-4.9); Potassium, Blood 4.2 mmol/L (3.5-5.5); Sodium, Blood 139.0 mmol/L (136-145); Total Protein, Blood 5.7 g/dL (6.4-8.2)
[2025-08-14 19:08] LABS: Calcium, Ionized (POC) 1.17 mmol/L (1.10-1.46); Chloride (POC) 105 mmol/L (98-108); Creatinine (POC) 8.9 mg/dL (0.6-1.0); Glucose (ISTAT POC) 115 mg/dL (70-99); Hematocrit (POC) 32.0 % (36.0-46.0); Hemoglobin (POC) 10.9 g/dL (12.0-16.0); Potassium (POC) 4.5 mmol/L (3.5-5.5); Sodium (POC) 139 mmol/L (135-148); Total CO2 (POC) 22 mmol/L (21-32)
[2025-08-14 19:32] LABS: BASOPHILS ABSOLUTE AUTO 0.06 K/mm3 (0.00-0.23); BASOPHILS PERCENT AUTO 1 % (0-2); EOSINOPHILS ABSOLUTE AUTO 0.21 K/mm3 (0.00-0.68); EOSINOPHILS PERCENT AUTO 2 % (0-6); Hematocrit 24.2 % (33.0-51.0); Hemoglobin 7.6 g/dL (11.5-16.0); IMMATURE GRAN ABSOLUTE AUTO 0.11 K/mm3 (0.00-0.10); IMMATURE GRAN PERCENT AUTO 1 % (0-1); LYMPHOCYTES ABSOLUTE AUTO 1.33 K/mm3 (0.84-5.20); LYMPHOCYTES PERCENT AUTO 14 % (21-46); MONOCYTES ABSOLUTE AUTO 1.37 K/mm3 (0.16-1.47); MONOCYTES PERCENT AUTO 14 % (4-13); Mean Corpuscular HGB Conc 31.4 g/dL (31.5-36.5); Mean Corpuscular Volume 98 fL (80-100); NEUTROPHILS ABSOLUTE AUTO 6.67 K/mm3 (1.96-9.15); NEUTROPHILS PERCENT AUTO 68 % (41-73); NRBC ABSOLUTE 0.00 K/mm3 (0.00-0.02); NRBC Auto 0.0 /100 WBC (0.0-0.2); Platelet Count 265 K/mm3 (150-400); RDW Coefficient Variation 17.0 % (11.7-14.2); RDW Standard Deviation 59.5 fL (35.1-46.3)
[2025-08-14] MEDS ORDERED: FLU VACC TS2025-26(6MOS UP)/PF 45 MCG/0.5 ML SYRINGE IM SCH (21:20)
[2025-08-14] MEDS ORDERED: Ondansetron HCl 2 MG / ML 2ML Vial IV PRN (21:20)
[2025-08-14] MEDS ORDERED: HYDROcodone 5-APAP 325 TAB PO PRN (21:30)
[2025-08-14] MEDS ORDERED: Darbepoetin (Pharmacy Consult) SC SCH (22:25)
[2025-08-15] VITALS (19 sets, daily range): BP systolic 81–172; BP diastolic 39–146
--- NOTE | 2025-08-15 02:23 | NUR ---
[employer] at bedside Dr. Quiros came in to see patient. Gave this RN V.O. to give 10g lokelma PO PRN for potassium greater than 5.0, change the following labs to 0500 stat (CBC w/ auto diff, BMP, magnesium) and call him with results by 0600, and to keep patient NPO starting midnight, day of planned procedure.
[2025-08-15 05:43] LABS: BASOPHILS ABSOLUTE AUTO 0.06 K/mm3 (0.00-0.23); BASOPHILS PERCENT AUTO 1 % (0-2); EOSINOPHILS ABSOLUTE AUTO 0.27 K/mm3 (0.00-0.68); EOSINOPHILS PERCENT AUTO 4 % (0-6); Hematocrit 21.8 % (33.0-51.0); Hemoglobin 7.1 g/dL (11.5-16.0); IMMATURE GRAN ABSOLUTE AUTO 0.10 K/mm3 (0.00-0.10); IMMATURE GRAN PERCENT AUTO 1 % (0-1); LYMPHOCYTES ABSOLUTE AUTO 1.20 K/mm3 (0.84-5.20); LYMPHOCYTES PERCENT AUTO 16 % (21-46); MONOCYTES ABSOLUTE AUTO 1.11 K/mm3 (0.16-1.47); MONOCYTES PERCENT AUTO 15 % (4-13); Mean Corpuscular HGB Conc 32.6 g/dL (31.5-36.5); Mean Corpuscular Volume 95 fL (80-100); NEUTROPHILS ABSOLUTE AUTO 4.93 K/mm3 (1.96-9.15); NEUTROPHILS PERCENT AUTO 64 % (41-73); NRBC ABSOLUTE 0.00 K/mm3 (0.00-0.02); NRBC Auto 0.0 /100 WBC (0.0-0.2); Platelet Count 261 K/mm3 (150-400); RDW Coefficient Variation 17.1 % (11.7-14.2); RDW Standard Deviation 57.7 fL (35.1-46.3)
[2025-08-15 06:18] LABS: Magnesium, Blood 1.8 mg/dL (1.6-2.4)
[2025-08-15 06:29] LABS: Albumin, Blood 1.9 g/dL (3.4-5.0); Anion Gap 12 mmol/L (3-11); Blood Urea Nitrogen 81 mg/dL (8-24); CO2, Blood 24 mmol/L (21-32); Calcium, Blood 7.7 mg/dL (8.5-10.1); Chloride, Blood 109 mmol/L (98-108); Creatinine, Blood 8.55 mg/dL (0.40-1.00); Glucose, Blood 89 mg/dL (70-99); Phosphorus, Blood 4.4 mg/dL (2.5-4.9); Potassium, Blood 3.8 mmol/L (3.5-5.5); Sodium, Blood 141 mmol/L (136-145)
--- NOTE | 2025-08-15 06:47 | NUR ---
PT ARRIVED TO UNIT FROM ER. BREWSTER CATHETER IN PLACE ON ADMISSION TO FLOOR. PLACED ELECTRIC TRIPPER MACHINE OPERATOR PER ER NURSE. PT IS A POOR HISTORIAN FOR MEDICAL INFORMATION. SHE IS ALERT AND ORIENTED TO SELF AND PLACE, BUT IS NOT ORIENTED TO TIME OR SITUATION. PER ER NURSE BREWSTER WAS POTENTIALLY PLACED TO MONITOR FOR URINARY RETNTION PT WAS STILL PRODUCING URINE, BUT NOT PASSING. POTENTIALLY PLACED BY HOME HEALTHCARE. PT TO HAVE PERMCATH PLACED 08/15 AND RECEIVE DIALYSIS AFTER PLACEMENT.
[2025-08-15] MEDS ORDERED: Calcium Acetate 667 MG Gel Cap PO SCH (08:30)
[2025-08-15] MEDS ORDERED: Darbepoetin Alfa in Polysorbat 25 MCG/0.42 ML Syringe SC SCH (09:00)
[2025-08-15] MEDS ORDERED: Protein Supplement 30 ML UD PO SCH (09:00)
[2025-08-15] MEDS ORDERED: Vitamin B Cmplx/Vit C/Folic Ac 1 Tab PO SCH (09:00)
[2025-08-15] MEDS ORDERED: Heparin Sodium,Porcine 5,000 UNIT/0.5 ML SDV SC SCH (09:00)
--- NOTE | 2025-08-15 11:09 | NUR ---
DR. EDUARDO REMOVED SUTURES DURING ROUNDS. PT TOLERATED WELL. AREA HAS SOME SCABING, NO BLEEDING AT THIS TIME - AREA OPEN TO AIR. VERBAL ORDERS ALSO OBTAINED TO REMOVE BREWSTER CATHETER AFTER PERMACATH PROCEDURE COMPLETED ON 08/15/25.
--- NOTE | 2025-08-15 13:31 | NUR ---
PT TRANSPORTED TO [facility] FOR PERMACATH PLACEMENT, PLAN FOR DIALYSIS AFTER PERMACATH PLACED.
[2025-08-15] MEDS ORDERED: NS 500 ML IV ONE (13:43)
[2025-08-15] MEDS ORDERED: FentaNYL Citrate 50 MCG/ML 2 ML Injection ONE (13:43)
[2025-08-15] MEDS ORDERED: Midazolam HCl 1MG / ML 2ML Vial ONE (13:43)
[2025-08-15] MEDS ORDERED: Heparin Sodium 1000 Units/ML 10ML MDV ONE (13:44)
[2025-08-15] MEDS ORDERED: NS 250 ML IV ONE (13:44)
--- NOTE | 2025-08-15 16:22 | NUR ---
SENIOR ARCHITECT/DESIGN MANAGER CALLED THIS RN TO INFORM PT REPORTING NOT FEELING GOOD, BLOOD PRESSURE READING HIGH AND THEN LOW. THIS RN GOES DOWN TO DIALYSIS TO GET COMPLETE VITALS AND CBG. CBG 97. BP 118/89, HR 88, TEMP 96.9, O2 SATS 100% ON 2 L/MIN VIA NC, RESP 18. PT RESPONSIVE, A/Ox3 BUT DOES REPORT FEELING TIRED AND COLD. WARM BLANKETS PROVIDED AND PT REPORTS FEELING BETTER. PER DIALISYS RN SHE STOPPED REMOVING FLUID AND IS ONLY CLEANING BLOOD AT THIS TIME. PT HAS APPROX 45 MINUTES LEFT IN DIALYSIS. PT STABLE AT THIS TIME.
--- NOTE | 2025-08-15 18:06 | NUR ---
SHIFT SUMMARY PT A/Ox3 WITH FORGETFULNESS AND POOR HISTORIAN. PT DENIES PAIN. PERMACATH PLACED ON LEFT UPPER CHEST WALL. DIALYSIS COMPLETED. PT BACK IN ROOM. VITALS STABLE, SATING 93-98% ON RA. TOLERATING INTAKE WELL NO EVIDENCE OF ASPIRATION. SUTURES TO UBALDO REMOVED BY DR. EDUARDO. INDWELLING BREWSTER CATHETER NEEDING TO BE REMOVED PER JAYCE ORDERS - PT CURRENTLY EATING RN TO ATTEMPT TO REMOVE PRIOR TO END OF SHIFT OR INFORM NOC SHIFT RN OF ORDER TO DC IF PT NOT COMPLETED WITH MEAL PRIOR TO SHIFT REPORT. PT APPEARS COMFORTABLE AND IN NO DISTRESS. BED IN LOWEST POSITION AND CALL LIGHT WITHIN REACH.
--- NOTE | 2025-08-15 18:24 | NUR ---
PT REPORTS BURNING/PAIN TO BLE. MITCH HOES REMOVED PT HAS HAD THEM ON SINCE NOC SHIFT AND PT REPORTS RELEIF ONCE MITCH HOES REMOVED AND FEET ELEVATED. PT ANXIOUS AND TEARFUL, WANTING TO GO HOME AND BE WITH HER . SHE STATES SHE DOES NOT LIKE BEING AWAY FROM HIM. RN OFFERED TO ASSIST PT WITH CALLING SPOUSE - PT DENIES. PT REPORTS SHE DOES NOT WANT HIM TO WORRY. RN COMPLETED THERAPUETIC COMMUNICATION. PT REPORTS FEELING BETTER AND HOPEFUL TO GO HOME TOMORROW. RN PUT TV ON FOR PT AND GAVE HER DINNER BACK TO HER. PT STARTED EATING HER CHICKEN AND WATCHING SHOW PEACEFULLY. PT REPORTS FEELING BAD FOR USING CALL LIGHT - RN INSTRUCTS PT TO USE CALL LIGHT AT ANYTIME FOR ANY REASON/NEEDS. PT AGREES AND THANKFUL FOR SUPPORT AT THIS TIME. CALL LIGHT IN REACH AND BED IN LOWEST POSITION.
[2025-08-15] MEDS ORDERED: Cholecalciferol 1000 Unit Tablet (=25MCG) PO SCH (21:00)
[2025-08-16] VITALS (8 sets, daily range): BP systolic 71–110; BP diastolic 28–75
--- NOTE | 2025-08-16 06:03 | NUR ---
PT RECIEVED PERMACATH AND WAS DIALYZED POST PLACEMENT ON 08/15. WAS INITIALLY TIRED AT THE BEGINNING OF SHIFT, BUT IN DECENT SPIRITS. HAD A BOUT OF NAUSEA ~2230 THAT LASTED ABOUT HALF AN HOUR AND WAS AMELIORATED WITH ZOFRAN. PT'S V/S REMAINED STABLE THROUGHOUT. SHE BEGAN TO ASK FOR HER AND BECAME SLIGHTLY CONFUSED THE NIGHT PROGRESSED. PT WAS EVENTUALLY ABLE TO GET SOME REST AND HAS RETURNED TO BASELINE LEVEL OF CONFUSION AND IS PLEASANT. BREWSTER CATHETER WAS REMOVED AT BEGINNING OF SHIFT AND PT WAS BLADDER SCANNED AT 0600, 1ML RESIDUAL.
[2025-08-16 06:30] LABS: Hematocrit 21.0 % (33.0-51.0); Hemoglobin 6.8 g/dL (11.5-16.0)
--- NOTE | 2025-08-16 06:44 | NUR ---
aTTEMPTED TO PAGE [facility]AUNA FOR HgB 6.8 AWAITING CALL BACK.
[2025-08-16 07:06] LABS: Albumin, Blood 1.7 g/dL (3.4-5.0); Anion Gap 9 mmol/L (3-11); Blood Urea Nitrogen 42 mg/dL (8-24); CO2, Blood 31 mmol/L (21-32); Calcium, Blood 8.3 mg/dL (8.5-10.1); Chloride, Blood 104 mmol/L (98-108); Creatinine, Blood 5.97 mg/dL (0.40-1.00); Glucose, Blood 103 mg/dL (70-99); Magnesium, Blood 1.9 mg/dL (1.6-2.4); Phosphorus, Blood 3.2 mg/dL (2.5-4.9); Potassium, Blood 3.5 mmol/L (3.5-5.5); Sodium, Blood 140 mmol/L (136-145)
--- NOTE | 2025-08-16 16:34 | NUR ---
ASSUMED CARE OF PT. A/O X 2-3 CAN BE CONFUSED BUT QUICKLY REORIENTATED. PLEASENT PT THAT IS COOPERATIVE WITH CARE. CALL IN TO DR EDUARDO CONCERNING H/H, BLOOD ORDERED TO BE INFUSED. PT HAS BEEN APPROPRIATE MAKING NEEDS KNOWN,, CARDIAC MEDS HELD FOR LOW BP WELL BLOOD THINNERS FOR INCREASED BRUISING THROUGHOUT BODY, DR EDUARDO IS AWARE.
--- NOTE | 2025-08-16 16:38 | NUR ---
1000 BLOOD TRANSFUSION STARTED. PT RECEIVED BLOOD AND SOCRATES WELL, BLOOD PRESSURE REMAINED LOW PT REMAINED A/O X 3 NO S/S OF EMMANUEL, AT BEDSIDE ONE PERSON ASSIST TRANSFER TO BSC.
--- NOTE | 2025-08-16 16:40 | NUR ---
1240 BLOOD FINISHED PT SOCRATES WELL, FAMILY AT BEDSIDE, PT ENC TO INCREASE NUTRITION INTAKE.
--- NOTE | 2025-08-16 19:26 | NUR ---
PT VERY EMOTIONAL AND NEED CONSTANT REASSURENCE THAT SHE WILL HAVE ASSISTENCE IF NEEDING TO USE RESTROOM. PT AWARE THAT PURWIC IS IN PLACE AND JUST NEEDS REMINDER.
[2025-08-17] VITALS (7 sets, daily range): BP systolic 93–152; BP diastolic 40–126
--- NOTE | 2025-08-17 02:01 | NUR ---
STRAIGHT CATH + URINALYSIS, cx if indicated ORDERS This RN covering lunch break for Anastasiya Chang, Primary RN. Instructed to call Dr. Trent Lenz for straight cath x 1 and urinalysis, culture if indicated. Apparently, pt was c/o "bladder feels full" associated with pelvis tenderness. Obtained both orders via telephone from Dr. Trent Lenz. Report returned to SUKHWINDER Langford.
[2025-08-17 02:04] LABS: Source, Urine Straight Cath
[2025-08-17 02:27] LABS: Bilirubin, Urine Neg (Neg); Glucose Qualitative, Urine Neg (Neg); Ketones, Urine Neg (Neg); Leukocyte Esterase, Urine 3+ (Neg); Protein, Urine 2+ (Neg); Specific Gravity, Urine 1.005 (1.003-1.022); Urobilinogen, Urine NORM (Normal)
[2025-08-17 02:39] LABS: Color, Urine Yellow (P-Yellow); White Blood Cells, Urine TNTC /hpf (0-5)
[2025-08-17 05:38] LABS: BASOPHILS ABSOLUTE AUTO 0.04 K/mm3 (0.00-0.23); BASOPHILS PERCENT AUTO 1 % (0-2); EOSINOPHILS ABSOLUTE AUTO 0.18 K/mm3 (0.00-0.68); EOSINOPHILS PERCENT AUTO 2 % (0-6); Hematocrit 26.0 % (33.0-51.0); Hemoglobin 8.7 g/dL (11.5-16.0); IMMATURE GRAN ABSOLUTE AUTO 0.08 K/mm3 (0.00-0.10); IMMATURE GRAN PERCENT AUTO 1 % (0-1); LYMPHOCYTES ABSOLUTE AUTO 1.05 K/mm3 (0.84-5.20); LYMPHOCYTES PERCENT AUTO 14 % (21-46); MONOCYTES ABSOLUTE AUTO 1.10 K/mm3 (0.16-1.47); MONOCYTES PERCENT AUTO 15 % (4-13); Mean Corpuscular HGB Conc 33.5 g/dL (31.5-36.5); Mean Corpuscular Volume 93 fL (80-100); NEUTROPHILS ABSOLUTE AUTO 4.98 K/mm3 (1.96-9.15); NEUTROPHILS PERCENT AUTO 67 % (41-73); NRBC ABSOLUTE 0.00 K/mm3 (0.00-0.02); NRBC Auto 0.0 /100 WBC (0.0-0.2); Platelet Count 216 K/mm3 (150-400); RDW Coefficient Variation 15.9 % (11.7-14.2); RDW Standard Deviation 53.4 fL (35.1-46.3)
[2025-08-17 06:04] LABS: Alanine Aminotransfer (ALT/SGP 19.0 U/L (12-78); Albumin, Blood 1.7 g/dL (3.4-5.0); Albumin/Globulin Ratio 0.6 (0.8-1.8); Anion Gap 8.0 mmol/L (3-11); Aspartate Aminotrans (AST/SGOT 22.0 U/L (12-37); Bilirubin, Total 0.5 mg/dL (0.1-1.0); Blood Urea Nitrogen 53.0 mg/dL (8-24); CO2, Blood 30.0 mmol/L (21-32); Calcium, Blood 8.4 mg/dL (8.5-10.1); Chloride, Blood 105.0 mmol/L (98-108); Creatinine, Blood 6.27 mg/dL (0.40-1.00); Globulin, Blood 2.7 g/dL (2.2-4.0); Glucose, Blood 93.0 mg/dL (70-99); Potassium, Blood 3.4 mmol/L (3.5-5.5); Sodium, Blood 140.0 mmol/L (136-145); Total Protein, Blood 4.4 g/dL (6.4-8.2)
--- NOTE | 2025-08-17 06:46 | NUR ---
SHIFT SUMMARY AT START OF SHIFT, PT SLEEPING PEACEFULLY. PT WOKE FEELING OFF APPROX 0030. PT BRIEF CHANGED AND PUREWIC CHANGED. PT STATED SHE FELT RETENTION. SCANNED PT, WHICH SHOWED APPROX 70ML. STRAIGHT CATH DONE. APPROX 75ML PULLED OFF. UA WITH CULTURE ORDERED AND SENT OFF. PT SLEEPING SOUNDLY. PLEASANT AND COOPERATIVE WITH CARE.
--- NOTE | 2025-08-17 10:57 | NUR ---
ASSUMED CARFE PT IS MORE AWAKE TODAY, BETTER COLOR IN FACE H/H WNL. ENC PT THAT SHE SHOULD FOCUS ON NUTRITION INTAKE AND SHE AGREED, WAS ABLE TO FEED SELF AND EAT OVER 50%. SBP WAS STILL >100 WHEN RECHECKED. SOME MEDCATIONS HELD AND WILL DISCUSS WITH MD ABOUT HOLD BLOOD THINNING MEDS. SPOKE WITH NIECE SHARON FRANCISCO GETTING PT OOB. PT AGREED THAT SHE SHOULD TR. PT OOB TO RECLYNER AND SOCRATES WELL. WILL CONT TO MONITOR
--- NOTE | 2025-08-17 15:49 | NUR ---
PT DOING WELL, AT BEDSIDE. PT CONT TO BE UP IN CHAIR, C/O PAIN TO COCCYX, I OFFERED TO ASSIST TO BED BUT PT WANTED TO STAY SITTING UP, MEPILEX WAS APPLIED TO COCCYX FOR PROTECTION AND PILLOW WAS PLACED ON CHAIR. PT NOW SLEEPING.
[2025-08-17] MEDS ORDERED: NS 250 ML IV PRN (16:00)
[2025-08-17] MEDS ORDERED: Piperacillin/Tazobactam Sod 4.5 GM in NS 100 ML IV SCH (16:00)
[2025-08-18] VITALS (7 sets, daily range): BP systolic 95–152; BP diastolic 42–87
[2025-08-18 05:49] LABS: BASOPHILS ABSOLUTE AUTO 0.05 K/mm3 (0.00-0.23); BASOPHILS PERCENT AUTO 1 % (0-2); EOSINOPHILS ABSOLUTE AUTO 0.26 K/mm3 (0.00-0.68); EOSINOPHILS PERCENT AUTO 3 % (0-6); Hematocrit 26.2 % (33.0-51.0); Hemoglobin 8.7 g/dL (11.5-16.0); IMMATURE GRAN ABSOLUTE AUTO 0.08 K/mm3 (0.00-0.10); IMMATURE GRAN PERCENT AUTO 1 % (0-1); LYMPHOCYTES ABSOLUTE AUTO 1.43 K/mm3 (0.84-5.20); LYMPHOCYTES PERCENT AUTO 15 % (21-46); MONOCYTES ABSOLUTE AUTO 1.32 K/mm3 (0.16-1.47); MONOCYTES PERCENT AUTO 14 % (4-13); Mean Corpuscular HGB Conc 33.2 g/dL (31.5-36.5); Mean Corpuscular Volume 94 fL (80-100); NEUTROPHILS ABSOLUTE AUTO 6.40 K/mm3 (1.96-9.15); NEUTROPHILS PERCENT AUTO 67 % (41-73); NRBC ABSOLUTE 0.00 K/mm3 (0.00-0.02); NRBC Auto 0.0 /100 WBC (0.0-0.2); Platelet Count 218 K/mm3 (150-400); RDW Coefficient Variation 15.8 % (11.7-14.2); RDW Standard Deviation 53.3 fL (35.1-46.3)
--- NOTE | 2025-08-18 06:18 | NUR ---
SHIFT SUMMARY AT START OF SHIFT, PT SITTING UP IN BED EATING. SHE IS IN GOOD SPIRITS AND EATING WELL. PT RESTING AND WATCHING TV. STILL HAVING SOFT BPS. MEDICATED PER EMAR FOR HYPOTENSION. PT SLEEPING COMFORTABLY. SHE HAS BEEN PLEASANT AND COOPERATIVE WITH HER CARE. 0315, PT SLEEPING SOUNDLY. PT BUE EXTREMELY EDEMATOUS. PERMACATH SEEMS TO BE SHOWING SIGNS OF IMPENDING INFECTION. ALERTED CLOAK ROOM ATTENDANT. ARMS FLOATED. PT DIFFICULT TO ARROUSE, BUT ANSWERING QUESTIONS. WILL PASS ON TO DAY SHIFT.
[2025-08-18 06:24] LABS: Alanine Aminotransfer (ALT/SGP 17.0 U/L (12-78); Albumin, Blood 1.6 g/dL (3.4-5.0); Albumin/Globulin Ratio 0.6 (0.8-1.8); Anion Gap 11.0 mmol/L (3-11); Aspartate Aminotrans (AST/SGOT 18.0 U/L (12-37); Bilirubin, Total 0.5 mg/dL (0.1-1.0); Blood Urea Nitrogen 68.0 mg/dL (8-24); CO2, Blood 27.0 mmol/L (21-32); Calcium, Blood 8.5 mg/dL (8.5-10.1); Chloride, Blood 105.0 mmol/L (98-108); Creatinine, Blood 6.84 mg/dL (0.40-1.00); Globulin, Blood 2.9 g/dL (2.2-4.0); Glucose, Blood 87.0 mg/dL (70-99); Magnesium, Blood 1.8 mg/dL (1.6-2.4); Phosphorus, Blood 3.8 mg/dL (2.5-4.9); Potassium, Blood 3.5 mmol/L (3.5-5.5); Sodium, Blood 139.0 mmol/L (136-145); Total Protein, Blood 4.5 g/dL (6.4-8.2)
[2025-08-18] MEDS ORDERED: Albumin (Human) 25gm/100ml 100 ML IV PRN (08:20)
--- NOTE | 2025-08-18 15:33 | NUR ---
Met with pt, and niece. Pt initially stated she wants to remain a Full Code, but after further discussion, pt agrees to change POLST to DNR. POLST filled out, signed by the patient. Order changed by Dr. Dean.
--- NOTE | 2025-08-18 19:40 | NUR ---
shift summary. pt a/o x 4 this morning but very emotional and not wanting to go have dialysis. pt agreed to have dialysis. once in dialysis pt was unable to complete because blood pressures were to painful to be done. pt requested to stop dialysis and was transported back to room. once pt in room she was very upset and not feeling well, pt stating that she doesnt want dialysis anymore she should be able to make that decision. i agreed with pt and notified the MD. palliative care was notified and was able to have discussion with pt and family, after educating pt on option she decided to change to DNR with limitations. possible Dialysis after reassesment with Dr Quiros and Pt. Blood pressures have also been a large issue. pt has limited access and wrists have provided very inaccurate results. MD and Family aware,
[2025-08-19] VITALS (17 sets, daily range): BP systolic 96–145; BP diastolic 45–104
[2025-08-19 06:14] LABS: BASOPHILS ABSOLUTE AUTO 0.06 K/mm3 (0.00-0.23); BASOPHILS PERCENT AUTO 1 % (0-2); EOSINOPHILS ABSOLUTE AUTO 0.24 K/mm3 (0.00-0.68); EOSINOPHILS PERCENT AUTO 2 % (0-6); Hematocrit 25.8 % (33.0-51.0); Hemoglobin 8.3 g/dL (11.5-16.0); IMMATURE GRAN ABSOLUTE AUTO 0.09 K/mm3 (0.00-0.10); IMMATURE GRAN PERCENT AUTO 1 % (0-1); LYMPHOCYTES ABSOLUTE AUTO 1.08 K/mm3 (0.84-5.20); LYMPHOCYTES PERCENT AUTO 11 % (21-46); MONOCYTES ABSOLUTE AUTO 1.29 K/mm3 (0.16-1.47); MONOCYTES PERCENT AUTO 13 % (4-13); Mean Corpuscular HGB Conc 32.2 g/dL (31.5-36.5); Mean Corpuscular Volume 95 fL (80-100); NEUTROPHILS ABSOLUTE AUTO 7.13 K/mm3 (1.96-9.15); NEUTROPHILS PERCENT AUTO 72 % (41-73); NRBC ABSOLUTE 0.00 K/mm3 (0.00-0.02); NRBC Auto 0.0 /100 WBC (0.0-0.2); Platelet Count 251 K/mm3 (150-400); RDW Coefficient Variation 15.9 % (11.7-14.2); RDW Standard Deviation 54.6 fL (35.1-46.3)
[2025-08-19 06:39] LABS: Alanine Aminotransfer (ALT/SGP 17.0 U/L (12-78); Albumin, Blood 2.0 g/dL (3.4-5.0); Albumin/Globulin Ratio 0.7 (0.8-1.8); Anion Gap 9.0 mmol/L (3-11); Aspartate Aminotrans (AST/SGOT 15.0 U/L (12-37); Bilirubin, Total 0.6 mg/dL (0.1-1.0); Blood Urea Nitrogen 56.0 mg/dL (8-24); CO2, Blood 28.0 mmol/L (21-32); Calcium, Blood 8.5 mg/dL (8.5-10.1); Chloride, Blood 109.0 mmol/L (98-108); Creatinine, Blood 6.72 mg/dL (0.40-1.00); Globulin, Blood 2.7 g/dL (2.2-4.0); Glucose, Blood 93.0 mg/dL (70-99); Magnesium, Blood 1.8 mg/dL (1.6-2.4); Phosphorus, Blood 3.6 mg/dL (2.5-4.9); Potassium, Blood 3.4 mmol/L (3.5-5.5); Sodium, Blood 143.0 mmol/L (136-145); Total Protein, Blood 4.7 g/dL (6.4-8.2)
--- NOTE | 2025-08-19 10:57 | NUR ---
PT BACK IN ROOM AFTER DIALYSIS. REPORTS FEELING WELL. DENIES PAIN. VSS THROUGHOUT DIALYSIS. PER FENCE RIDER, REMOVED 800 ML. PT SITTING UP IN BED EATING BREAKFAST (HELD DURING DIALYSIS DUE TO RISK FOR HYPOTENTION). PT REPORTS BEING IN GOOD SPIRITS.
--- NOTE | 2025-08-19 15:51 | NUR ---
"Spiritual Care | Nurse Request Pt. is awake in bed and welcomes my visit. Pt. is pleasant, and verbalizes that she and her have just recently moved here from [facility]. Pt. verbalized that she is a woman of [place] and has recently [facility]. Pt. displayed evidence of being at peace with the spiritual care visit. Prayed with the Pt. Pt. verbalized gratitude for the spiritual care visit. Spouse and daughter arrived while we were praying."
--- NOTE | 2025-08-19 17:55 | NUR ---
NO ACUTE CHANGES THIS SHIFT. PT DID HAVE SUCESSFUL DIALYSIS THIS MORNING. ONE TEARFUL EPISODE TODAY BUT HAS BEEN IN GOOD SPIRITS FOR THE MAJORITY OF SHIFT. PT UP TO BSC THIS MORNING. CALLS APPROPRIATLY DENIES PAIN. R/A. MEPILEX ON COCCYX FOR PREVENTION. 1 LOOSE BM TODAY.
--- NOTE | 2025-08-19 20:42 | NUR ---
PT REFUSING ALL MEDS EXCEPT TUMS. STATES "I NEED TO TALK TO MY DOCTOR ABOUT ALL OF THESE." "I TAKE MEDICATIONS AT HOME, I WILL WAIT UNTIL I GET BACK". EDUCATION PROVIDED ABOUT MEDICATION INDICATIONS. PT DENIES PAIN, NUMBNESS/TINGLING, SOB. ORIENTED TO SELF AND SITUATION, REFUSED TO ANSWER PLACE OR TIME, STATING "I DON'T PAY ANY ATTENTION".
[2025-08-20] VITALS (7 sets, daily range): BP systolic 88–143; BP diastolic 52–99
[2025-08-20 06:15] LABS: Hematocrit 24.8 % (33.0-51.0); Hemoglobin 8.0 g/dL (11.5-16.0)
[2025-08-20 06:55] LABS: Albumin, Blood 1.9 g/dL (3.4-5.0); Anion Gap 8 mmol/L (3-11); Blood Urea Nitrogen 30 mg/dL (8-24); CO2, Blood 29 mmol/L (21-32); Calcium, Blood 8.5 mg/dL (8.5-10.1); Chloride, Blood 105 mmol/L (98-108); Creatinine, Blood 4.70 mg/dL (0.40-1.00); Glucose, Blood 84 mg/dL (70-99); Magnesium, Blood 1.7 mg/dL (1.6-2.4); Phosphorus, Blood 2.6 mg/dL (2.5-4.9); Potassium, Blood 3.2 mmol/L (3.5-5.5); Sodium, Blood 139 mmol/L (136-145)
--- NOTE | 2025-08-20 07:51 | NUR ---
SHIFT SUMMARY A/Ox2, DISORIENTED TO PLACE AND TIME. ANXIOUS, WANTING TO GO HOME, REFUSING MEDS EARLY IN THE SHIFT. APPEARED TO SLEEP WELL OVERNIGHT. CONSENTED TO MEDS THIS MORNING. 2 SOFT STOOLS THIS SHIFT, DR. RODRIGUEZ CONTACTED, NO NEED TO COLLECT SAMPLE AT THIS TIME. UP TO COMMODE WITH 2P ASSIST. PT DENIES PAIN, SOB, NAUSEA, OTHER COMPLAINTS. PER DESK ASSISTANT: 10 BEAT RUN OF VTACH AT 0700, PT ASYMPTOMATIC.
--- NOTE | 2025-08-20 17:42 | NUR ---
NO ACUTE CHANGES THIS SHIFT. P/T IN TODAY. PT DECLINED TREATMENT. UP ONCE TO BEDSIDE COMMODE 3 PERSON ASSIST. INCONT SOFT STOOLS X3. ANXIOUS AND TEARFUL TODAY. NO DIALYSIS. FAMILY IN ROOM FOR MAJORITY OF SHIFT. REDNESS TO COCCYX. PIC IN CHART. MEPILEX APPLIED. SOFT BP. TREATED WITH MIDODRINE.
[2025-08-20] MEDS ORDERED: Lactobacil 2-S.Thermo-Bifido 1 1 Cap PO SCH (21:00)
[2025-08-21 00:08] VITALS: BP 116/68
[2025-08-21 04:05] VITALS: BP 94/64
[2025-08-21 05:12] LABS: BASOPHILS ABSOLUTE AUTO 0.07 K/mm3 (0.00-0.23); BASOPHILS PERCENT AUTO 1 % (0-2); EOSINOPHILS ABSOLUTE AUTO 0.21 K/mm3 (0.00-0.68); EOSINOPHILS PERCENT AUTO 3 % (0-6); Hematocrit 30.8 % (33.0-51.0); Hemoglobin 9.8 g/dL (11.5-16.0); IMMATURE GRAN ABSOLUTE AUTO 0.14 K/mm3 (0.00-0.10); IMMATURE GRAN PERCENT AUTO 2 % (0-1); LYMPHOCYTES ABSOLUTE AUTO 1.32 K/mm3 (0.84-5.20); LYMPHOCYTES PERCENT AUTO 17 % (21-46); MONOCYTES ABSOLUTE AUTO 1.65 K/mm3 (0.16-1.47); MONOCYTES PERCENT AUTO 21 % (4-13); Mean Corpuscular HGB Conc 31.8 g/dL (31.5-36.5); Mean Corpuscular Volume 98 fL (80-100); NEUTROPHILS ABSOLUTE AUTO 4.32 K/mm3 (1.96-9.15); NEUTROPHILS PERCENT AUTO 56 % (41-73); NRBC ABSOLUTE 0.00 K/mm3 (0.00-0.02); NRBC Auto 0.0 /100 WBC (0.0-0.2); Platelet Count 213 K/mm3 (150-400); RDW Coefficient Variation 15.7 % (11.7-14.2); RDW Standard Deviation 55.4 fL (35.1-46.3)
[2025-08-21 06:21] LABS: Alanine Aminotransfer (ALT/SGP 16.0 U/L (12-78); Albumin, Blood 1.8 g/dL (3.4-5.0); Albumin/Globulin Ratio 0.6 (0.8-1.8); Anion Gap 11.0 mmol/L (3-11); Aspartate Aminotrans (AST/SGOT 18.0 U/L (12-37); Bilirubin, Total 0.5 mg/dL (0.1-1.0); Blood Urea Nitrogen 39.0 mg/dL (8-24); CO2, Blood 26.0 mmol/L (21-32); Calcium, Blood 8.6 mg/dL (8.5-10.1); Chloride, Blood 108.0 mmol/L (98-108); Creatinine, Blood 5.59 mg/dL (0.40-1.00); Globulin, Blood 2.9 g/dL (2.2-4.0); Glucose, Blood 85.0 mg/dL (70-99); Magnesium, Blood 1.7 mg/dL (1.6-2.4); Phosphorus, Blood 3.5 mg/dL (2.5-4.9); Potassium, Blood 3.5 mmol/L (3.5-5.5); Sodium, Blood 141.0 mmol/L (136-145); Total Protein, Blood 4.7 g/dL (6.4-8.2)
--- NOTE | 2025-08-21 06:33 | NUR ---
SHIFT SUMMARY ALERT, ORIENTED TO SELF AND PLACE. LOW SBP, OTHER VSS ON RA. PT WITH CHILLS OVERNIGHT, CONTACTED, ADDITIONAL LABS ORDERED WITH MORNING DRAW. STOOL SAMPLE SENT FOR 4 LOOSE STOOLS THIS SHIFT. SKIN CARE PROVIDED FOR TENDER EXCORIATION AT ARISTEO AREA. PT DENIES PAIN, SOB, NAUSEA. TELE IN PLACE, NSR.
[2025-08-21 07:25] VITALS: BP 117/91
[2025-08-21 08:13] LABS: C DIFFICILE DNA Negative (Negative)
[2025-08-21] MEDS ORDERED: CefTRIAXone Sodium 1,000 MG in NS 100 ML IV SCH (11:00)
[2025-08-21] MEDS ORDERED: SODBIC650 PO (11:39)
[2025-08-21] MEDS ORDERED: FURO80 PO (11:40)
[2025-08-21] MEDS ORDERED: Millipred5 MG PO (11:42)
[2025-08-21] MEDS ORDERED: POTCHL20ER PO (11:44)
[2025-08-21] MEDS ORDERED: SLOWMAG71.5 MG PO (11:54)
[2025-08-21] MEDS ORDERED: DIALYVITE PO (12:02)
[2025-08-21] MEDS ORDERED: EUTHYROX50 MCG PO (12:04)
[2025-08-21] MEDS ORDERED: Cranberry425 MG PO (12:41)
[2025-08-21] MEDS ORDERED: METHYL B12-MET1 EACH PO (12:45)
[2025-08-21] MEDS ORDERED: CARB200ER PO (12:47)
[2025-08-21] MEDS ORDERED: STELARA45 MG/0.3 SC (12:50)
[2025-08-21] MEDS ORDERED: PRED5 PO (16:16)
[2025-08-21 16:38] VITALS: BP 99/47
--- NOTE | 2025-08-21 16:48 | NUR ---
Pt has chosen comfort care, family agreeable. Dr. Dean at bedside for the conversation with pt, and nieces. Comfort Care initiated.
[2025-08-21] MEDS ORDERED: Morphine Sulfate 20 MG/1ML 1 ML Oral Syringe SL PRN (17:20)
[2025-08-21 17:58] LABS: HEPATITIS B SURFACE ANTIBODY <3.10 IU/L
--- NOTE | 2025-08-21 18:03 | NUR ---
PT A/Ox3, NOT OREINTED TO YEAR. PT IS CALM AND COOPERATIVE WITH CARE. HAS SOME ANXIETY/PAIN WITH PATIENT CARE TASKS. FAMILY HAS BEEN AT THE BEDSIDE T/O SHIFT. COMFORT MEASURES IN PLACE.
[2025-08-21 18:29] LABS: HBV CORE ANTIBODIES,TOTAL Negative (Negative)
--- NOTE | 2025-08-22 06:47 | NUR ---
SHIFT SUMMARY PT CODE STATUS CHANGED SHORTLY BEFORE SHIFT CHANGE. SHE IS NOW ON COMFORT CARE. PT SLEPT THROUGHOUT SHIFT. PT CALLED TO USE BEDPAN. SHE HAD NO BM, BUT WAS ABLE TO VOID SUCCESSFULLY. PT COMFORTABLY RESTING. SHE HAS BEEN PLEASANT AND COOPERATIVE.
[2025-08-22 09:47] VITALS: BP 128/76
[2025-08-22 10:39] LABS: HEPATITIS A ANTIBODY, IGM Negative (Negative); HEPATITIS C AB CIA INTERP Negative (Negative); HEPATITIS C ANTIBODY CIA INDEX <0.02 IV
[2025-08-22 13:32] VITALS: BP 132/90
--- NOTE | 2025-08-22 13:35 | NUR ---
PT APPEARED VERY PAINFUL WITH BLOOD PRESSURE THIS AFTERNOON. B/P TAKEN WHILE ON COMFRT CARE DUE TO PARAMETERS FOR MIDODRINE. AFTER DISCUSSING WITH PT SHE WOULD PREFER NOT TO TAKE THIS ANYMORE DUE TO PAIN WITH EACH B/P READING.
[2025-08-22] MEDS ORDERED: Darbepoetin Alfa in Polysorbat 25 MCG/0.42 ML Syringe SC SCH (16:00)
--- NOTE | 2025-08-22 18:44 | NUR ---
SUMMARY PT HAS DENIED PAIN ALL DAY TODAY. MINIMAL DISCOMFORT AFTER WAKING UP FROM NAP BUT REPOSITIONING OFF BOTTOM RELIEVED. PT STILL HAD MIDODRINE ORDERED SO I CHECKED B/P TWICE TODAY AND PT REPROTED LOTS OF DISCOMFORT WITH EACH CHECK. NOTIFIED DR. RODRIGUEZ WHO DC'D MIDODRINE AND PT ALSO ASKED IF SHE COULD HAVE REGULAR DIET, DR. RODRIGUEZ OK'D PT TO CHANGE TO REGULAR DIET. PLAN FOR HOSPICE AND PLACEMENT. PIPE CLEANING MACHINE OPERATOR FOLLOWING. PT VERY PLEASANT AND ALERT, VISTED WITH AND SISTER MOST OF DAY. NAPPING ON AND OFF T/O DAY. CALLING APPROPRIATELY. USING BEDPAN.
--- NOTE | 2025-08-23 04:42 | NUR ---
SHIFT SUMMARY; WAS AWAKE EVEN AFTER ATIVAN, CHANGED CHANNEL TO 22. AND OFFER TO LET ME BRUSH HER HAIR. SHE WAS THEN ALSEEP IN LONG INVERVAL.
--- NOTE | 2025-08-23 17:09 | NUR ---
PT IS COMFORTABLE AT THIS TIME. FAMILY TO THE OFFICE TO CLARIFY ROLE OF HOSPICE IN A FACILITY. ANSWERED QUESTIONS AND PROVIDED THERAPUTIC LISTENING
--- NOTE | 2025-08-23 17:39 | NUR ---
SUMMARY- PT A/O X3-4. BEDREST THIS SHIFT WITH ROUTINE TURNS. PT FEEDING SELF MEALS AND TOLERATING CLEAR LIQUIDS. CONTINENT, USES BED BAN THIS SHIFT. HAD MED SOFT FORMED/FLUFFY BM. PERIRECTAL IRRITATION, PINK, APPLIED ZINC CREAM. FAMILY AT BEDSIDE MOST OF THE DAY, INVOLVED IN PLAN OF CARE. PT DENEIES PAIN AND DECLINES NEED FOR PAIN MED. CALM AND DENIES ANXIETY. PLAN FOR PT TO GO HOME TOMORROW WITH HOSPICE ONCE BED DELIVERED. WILL REPORT TO LYUBOV RN
--- NOTE | 2025-08-24 04:07 | NUR ---
Patient alert and oriented, denies pain at current time, refuse medications at beddtime stating she doesn't need them, offered medication to help her relax, she for it, patient resting throughtout night, with eyes closed and relaxed appearing, lungs diminished in the bases, denies nausea, call light in reach, bed in low and locked position, will continue to monitor closely
--- NOTE | 2025-08-24 16:39 | NUR ---
ROUNDED ON PT. SHE WAS REPORTED SHE WAS COMFORTABLE AT THIS TIME. ALERT AND PLESANT. DISCUSSED CASE WITH RFID ENGINEER. UPDATED AND PROVIDED INFORMATION TO KAZ FROM [facility]. DISCUSSED WITH BSRN AND PROVIDER.
--- NOTE | 2025-08-24 18:13 | NUR ---
SUMMARY- PT A/O X3, BEDREST WITH ROUTINE TURNS. CONT/INCONT OF URINE. REDNESS PERIRECTAL RESOLVING, CONT TO USE BARRIER CREAM. PT TOLERATING FOOD AND FLUID,. FEEDS SELF WITH SET UP. MEDICATED ONCE WITH NORCO IN AM FOR C/O L NECK/JAW NERVE PAIN FROM [place]ER[place]IA; WITH SUBSEQUENT RELEIF. FAMILY FREQ IN ROOM, SUPPORTIVE IN CARE. PLAN FOR PT TO BE DC'D TO [place] WITH HOSPICE ON MONDAY. WILL REPORT TO LYUBOV RN
--- NOTE | 2025-08-25 05:28 | NUR ---
SHIFT SUMMARY PATIENT A/O X4- PLEASANT AND COOPERATIVE WITH CARE. BEDREST THROUGHOUT THE NIGHT. INCONTINENT- ATTENDS CHANGED PRN. REPOSITIONED Q2H. PAIN MANAGED PER EMAR AT THE BEGINING OF THE SHIFT- NO REPORT OF PAIN SINCE. TOLERATING PO INTAKE. NO ACUTE CHANGES, CALL LIGHT IN REACH, BED IN LOWEST POSITION. WILL REPORT TO ONCOMING RN.
--- NOTE | 2025-08-25 16:31 | NUR ---
DISCHARGE PT DISCHARGED HOME ON HOSPICE VIA [facility]. FAMILY TO BRING BELONGINGS HOME.
== END 2025-08-25 15:41 | disposition hospice, home (50) | DRG 919 ==
LOC: ER 13:07 → MEDS 13:08
PROVIDERS: Family Medicine; Internal Medicine; Internal Medicine Nephrology; Student in an Organized Health Care Education/Training Program; ADMIT Internal Medicine
PROC: 0JH63XZ Insertion of Tunneled Vascular Access Device into Chest Subcutaneous Tissue and Fascia, Percutaneous Approach (ICD-10-PCS; principal; 2025-08-15)
PROC: 02HV33Z Insertion of Infusion Device into Superior Vena Cava, Percutaneous Approach (ICD-10-PCS; 2025-08-15)
PROC: B5181ZA Fluoroscopy of Superior Vena Cava using Low Osmolar Contrast, Guidance (ICD-10-PCS; 2025-08-15)
PROC: 5A1D70Z Performance of Urinary Filtration, Intermittent, Less than 6 Hours Per Day (ICD-10-PCS; 2025-08-15)
PROC: 30233N1 Transfusion of Nonautologous Red Blood Cells into Peripheral Vein, Percutaneous Approach (ICD-10-PCS; 2025-08-16)
PROC: 30233J1 Transfusion of Nonautologous Serum Albumin into Peripheral Vein, Percutaneous Approach (ICD-10-PCS; 2025-08-18)
DX: T85.621A Displacement of intraperitoneal dialysis catheter, initial encounter (principal); N18.6 End stage renal disease; Z94.0 Kidney transplant status; I12.0 Hypertensive chronic kidney disease with stage 5 chronic kidney disease or end stage renal disease; K50.90 Crohn's disease, unspecified, without complications; N25.81 Secondary hyperparathyroidism of renal origin; N39.0 Urinary tract infection, site not specified; I47.20 Ventricular tachycardia, unspecified; Z66 Do not resuscitate; Z51.5 Encounter for palliative care; Z99.2 Dependence on renal dialysis; M10.9 Gout, unspecified; G25.81 Restless legs syndrome; I48.0 Paroxysmal atrial fibrillation; R53.81 Other malaise; I95.9 Hypotension, unspecified; E87.6 Hypokalemia; D63.1 Anemia in chronic kidney disease; M53.3 Sacrococcygeal disorders, not elsewhere classified; I25.10 Atherosclerotic heart disease of native coronary artery without angina pectoris; I25.2 Old myocardial infarction; Z90.89 Acquired absence of other organs; Z87.19 Personal history of other diseases of the digestive system; Z79.891 Long term (current) use of opiate analgesic; Z79.899 Other long term (current) drug therapy; Z95.5 Presence of coronary angioplasty implant and graft; Z92.89 Personal history of other medical treatment; Z88.8 Allergy status to other drugs, medicaments and biological substances; Z79.01 Long term (current) use of anticoagulants
CPT/HCPCS: 36415; 36430; 36558; 76937; 77001; 80047; 80053; 80069; 80074; 81001; 82947; 83735; 84100; 85014; 85018; 85025; 86704; 86850; 86900; 86901; 86923; 87077; 87086; 87186; 87340; 87493; 87517; 93005; 93010; 93306; 96372; 97110; 97161; 97530; 99152; 99153; 99285-25; A9270; C1750; C1751; C1769; C1894; G0378; J0696; J0881; J1644; J2250; J2405; J2543; J3010; J7040; J7050; P9016; P9047